=== PATIENT | female | born 1995 | race Caucasian/White ===

== ENCOUNTER 2023-07-29 15:50 | Outpatient (CLI) | payer OTHER, SELFPAY ==
[2023-07-29 18:49] LABS: Hematocrit 40.7 % (37.0-47.0); Hemoglobin 12.7 g/dL (12.0-15.0); Mean Corpuscular HGB Conc 31.2 g/dl (32-36); Mean Corpuscular Hemoglobin 28.4 pg (26-34); Mean Corpuscular Volume 91.1 fl (80-100); Mean Platelet Volume 10.2 fl (7.4-10.4); Platelet Count Result 410 k/mm3 (150-375); Red Blood Count 4.47 M/mm3 (4.2-5.4); Red Cell Distribution Width 12.1 % (11.5-14.5); White Blood Count 8.9 K/mm3 (4.5-10.0)
[2023-07-29 18:58] LABS: Alanine Aminotransferase 65 U/L (6-35); Albumin Level 4.6 g/dL (3.5-5.1); Alkaline Phosphatase 73 U/L (38-126); Anion Gap 7 mmol/L (8-16); Aspartate Amino Transferase 70 U/L (14-36); Bilirubin,Total 0.5 mg/dL (0.2-1.3); Blood Urea Nitrogen 13 mg/dL (7-17); Calcium 9.6 mg/dL (8.4-10.2); Carbon Dioxide 28 mmol/L (22-30); Chloride 106 mmol/L (98-107); Cholesterol 156 mg/dL (0-200); Estimated Glomerular Filt Rate > 60; Glucose 89 mg/dL (65-110); HDL Direct 27 mg/dL; Sodium 141 mmol/L (137-145); Triglycerides 393 mg/dL (<150)
[2023-07-29 19:09] LABS: LDL Cholesterol Direct 77 mg/dL
[2023-07-29 20:20] LABS: Hemoglobin A1C 5.4 % (<5.7)
== END 2023-07-29 15:51 | disposition home or self-care (01) ==
LOC: ANHBWCLAB 15:57
PROVIDERS: PCP Nurse Practitioner Adult Health; Visit Provider Nurse Practitioner Adult Health
DX: E66.9 Obesity, unspecified (principal); E03.9 Hypothyroidism, unspecified; Z13.9 Encounter for screening, unspecified
CPT/HCPCS: 36415; 80053; 80061; 83036; 84443; 85027

== ENCOUNTER 2023-09-09 15:39 | Outpatient (CLI) | payer OTHER, SELFPAY ==
[2023-09-09 19:31] LABS: Thyroid Stimulating Hormone 0.362 uIU/mL (0.465-4.680)
== END 2023-09-09 15:40 | disposition home or self-care (01) ==
LOC: ANHBWCLAB 15:41
PROVIDERS: PCP Nurse Practitioner Adult Health; Visit Provider Nurse Practitioner Adult Health
DX: E03.9 Hypothyroidism, unspecified (principal)
CPT/HCPCS: 36415; 84443

== ENCOUNTER 2023-11-04 08:31 | Outpatient (CLI) | payer OTHER, SELFPAY | END 2023-11-04 08:32 | disposition home or self-care (01) | LOC: ANHBWCLAB 08:32 | PROVIDERS: PCP Nurse Practitioner Adult Health; Visit Provider Nurse Practitioner Adult Health | DX: E03.9 Hypothyroidism, unspecified (principal) | CPT/HCPCS: 36415; 84443 ==

== ENCOUNTER 2024-04-06 10:06 | Outpatient (CLI) | payer BC, SELFPAY ==
[2024-04-06 19:28] LABS: Alanine Aminotransferase 42 U/L (6-35); Albumin Level 4.4 g/dL (3.5-5.1); Alkaline Phosphatase 72 U/L (38-126); Anion Gap 7 mmol/L (4-12); Aspartate Amino Transferase 79 U/L (14-36); Bilirubin,Total 0.6 mg/dL (0.2-1.3); Blood Urea Nitrogen 13 mg/dL (7-17); Calcium 9.1 mg/dL (8.4-10.2); Carbon Dioxide 27 mmol/L (22-30); Chloride 104 mmol/L (98-107); Cholesterol 161 mg/dL (0-200); Estimated Glomerular Filt Rate > 60; Glucose 89 mg/dL (65-110); HDL Direct 42 mg/dL; Potassium 4.4 mmol/L (3.4-5.0); Sodium 138 mmol/L (137-145); Triglycerides 94 mg/dL (<150)
[2024-04-06 19:39] LABS: LDL Cholesterol Direct 71 mg/dL
== END 2024-04-06 10:07 | disposition home or self-care (01) ==
LOC: ANHBWCLAB 10:08
PROVIDERS: PCP Nurse Practitioner Adult Health; Visit Provider Nurse Practitioner Adult Health
DX: E03.9 Hypothyroidism, unspecified (principal); E78.1 Pure hyperglyceridemia
CPT/HCPCS: 36415; 80053; 80061; 84443

== ENCOUNTER 2024-06-14 12:12 | Outpatient (CLI) | payer BC, SELFPAY ==
--- OUTSIDE RECORDS SUMMARY | 2024-06-14 12:51 | XMS_ITS | Clinical Summary ---
Author Organization [facility] Address [address] [place] [address] Care Team Providers Care Screed Operator Name Role Phone Shazia Rothman Primary Care Provider [phone] Allergies Active Allergy Reactions Criticality Noted Date Comments Citalopram Naltrexone-Bupropion Hives Medium 03/01/2023 Medications levothyroxine (SYNTHROID) 25 mcg tablet TAKE 1 TABLET BY MOUTH EVERY DAY FOR THYROID 3 Active ondansetron ODT (ZOFRAN-ODT) 4 mg disintegrating tablet DISSOLVE 1 TABLET ON THE TONGUE EVERY 8 HOURS NEEDED FOR NAUSEA 3 Active 28 mg iron- 800 mcg tablet Take 1 tablet by mouth daily 3 Active NIFEdipine (PROCARDIA XL/ADALAT CC) 60 mg 24 hr tablet Take 1 tablet (60 mg total) by mouth daily 30 tablet 1 3 Active docusate sodium (DOK) 100 mg tabletIndications:c onstipation Take 1 tablet (100 mg total) by mouth 2 (two) times a day 60 tablet 3 Active Active Problems Problem Noted Date Diagnosed Date 38 weeks gestation of 05/01/2023 37 weeks gestation of 04/30/2023 Lymphadenopathy 05/14/2016 Overview (08/23/2016): Lymphadenopathy Acute maxillary sinusitis 10/09/2015 Overview (08/23/2016): Acute recurrent maxillary sinusitis Medical History Medical History Date Comments Hx Other Medical 05/14/2016 Lymphadenopathy ; Comments: GDS 05/14/2016 - Thyroid disease Family History Medical History Relation Name Comments Cardiomyopathy Father Cardiomyopath y; Hypertension Other Family history of Hypertension; Relation Name Status Comments Father Other Social History Tobacco Use Types Packs/Day Years Used Date Smoking Tobacco: Never Smokeless Tobacco: Never Tobacco Cessation:Counseling Given: Not Answered Alcohol Use Standard Drinks/Week Comments No 0 (1 standard drink = 0.6 oz pur e alcohol) Social Connection and Isolat ion Panel [NHANES] Answer Date Recorded In a typical week, how many times do you talk on the phone with family, friends, or neighbors? More than three times a week 05/03/2023 How often do you get togethe r with friends or relatives? More than three times a week 05/03/2023 How often do you attend chur ch or restorationism services? Never 05/03/2023 Do you belong to any clubs o r organizations such as mu-ism groups, unions, fraternal or athletic groups, or school groups? No 05/03/2023 How often do you attend meet ings of the clubs or organizations you belong to? Never 05/03/2023 Are you , , di vorced, , never , or living with a partner? 05/03/2023 AUDIT-C Answer Date Recorded Q1: How often do you have a drink containing alcohol? Never 05/03/2023 Q2: How many drinks containi ng alcohol do you have on a typical day when you are drinking? Patient does not drink Q3: How often do you have si x or more drinks on one occasion? Never 05/03/2023 Overall Financial Resource Strain (CARDIA) Answe r Date Recorded How hard is it for you to pa y for the very basics like food, housing, medical care, and heating? Not hard at all 05/03/2023 PHQ-2 Answer Date Recorded PHQ-2 Total Score (If total score is 3 or more points, staff should administer the PHQ-9) 0 05/03/2023 [facility] - Occupational Stress Questionnaire Answer Date Recorded Do you feel stress - tense, restless, nervous, or anxious, or unable to sleep at night because your mind is troubled all the time - these days? Not at all 05/03/2023 Exercise Vital Sign Answer Date Recorde d On average, how many days pe r week do you engage in moderate to strenuous exercise (like a brisk walk)? 3 days 05/03/2023 On average, how many minutes do you engage in exercise at this level? 30 min 05/03/2023 Hunger Vital Sign Answer Date Recorded Within the past 12 months, y ou worried that your food would run out before you got the money to buy more. Never true 05/03/20 23 Within the past 12 months, t he food you bought just didn't last and you didn't have money to get more. Never true 05/03/2023 PRAPARE - Transportation Answer Date Re corded In the past 12 months, has l ack of transportation kept you from medical appointments or from getting medications? No 04/18 In the past 12 months, has l ack of transportation kept you from meetings, work, or from getting things needed for daily living? No 05/03/2023 Housing Stability Vital Sign Answer Christian e Recorded In the last 12 months, was t here a time when you were not able to pay the mortgage or rent on time? No 05/03/2023 In the last 12 months, how many places have you lived? 1 05/03/2023 In the last 12 months, was t here a time when you did not have a steady place to sleep or slept in a chcf (including now)? No 05/03/2023 Personal Safety Answer Date Recorded Have you ever been in or are you currently in a harmful physical or emotional relationship or is someone making you feel afraid or unsafe? Denies 05/03/2023 Comments No Sex and Gender Information Value Date Recorded Sex Assigned at Not on file Legal Sex Female 3:03 PM [employer] Gender Identity Not on file Sexual Orientation Not on file Obstetrics History Para Term AB IAB SAB Ectopic Multiple Livin g Live Births 1 1 1 0 1 1 Date Outcome GA Total Labor Labor/2nd/3rd Weight Sex Type Anes PTL Bibiana A1 A5 Name Clin 2022 Term 38w 0d 0h 01m 0h 01m 2.66 kg (5 lb 13.8 oz) F C-Sec tion Spinal N Livin g 8 9 Betty Bibi GonzalezRik Parks MD Complications:Other (Comment ) Delivery Location:This Facil ity ([facility] D PROCEDURE) Last Filed Vital Signs Vital Sign Reading Time Taken Comments Blood Pressure 133/86 05/07/2023 6:40 AM [employer]PER[employer] Pulse 95 05/07/2023 6:40 AM [employer] Temperature 35.9 ??C (96.6 ??F) 05/07/2023 6:40 AM CS T Respiratory Rate 17 05/07/2023 6:40 AM [employer] Oxygen Saturation 99% 05/07/2023 1:00 AM [employer]PER[employer]OR Inhaled Oxygen Concentration - - Weight 126.6 kg (279 lb) 05/03/2023 7:52 PM [employer]PER[employer] Height 160 cm (5' 3 ) 05/03/2023 7:52 PM [employer] Body Mass Index 49.42 05/03/2023 7:52 PM [employer] Plan of Treatment Health Maintenance Due Date Last Done Comments Cervical Cancer Screening 1996 Hepatitis C Screening 1996 DTaP/Tdap/Td Vaccine (6 - Tdap) 2007 12/02/2001, 12/02/2001, 04/20/1999, Additional history exists Regular Well Visit/Exam 18-64 2014 Covid-19 Vaccine ( season) 2024 09/25/2020, 08/18/2020 Influenza Vaccine (#1) 2024 05/16/2015 Depression Screening 05/01/2024 05/01/2023, 05/01/2023, 04/29/2023, Additional history exists Varicella Vaccines Completed 01/07/2007, 04/20/1999 HPV Vaccines Completed 09/09/2008, 12/23/2007 Pneumococcal vaccine <65 Aged Out No longer eligible based on patient's age to complete this topic Insurance [facility] H[facility]/PPO Address: [place] [address] [facility] H[facility]/PPO Address: [address] [facility] H[facility]/PPO Address: [place] [address] Advance Directives For more information, please contact: [phone] * Full Code (Latest Code Status on File) Date Activated Date Inactivated Comments 2023 9:41 AM 05/07/2023 4:23 PM * Full Code Date Activated Date Inactivated Comments 05/03/2023 3:53 PM 2023 9:41 AM Full CPR i n case of cardiopulmonary arrest * Full Code Date Activated Date Inactivated Comments 04/30/2023 6:34 AM 05/02/2023 1:17 AM Full CPR i n case of cardiopulmonary arrest Care Teams Screed Operator Relationship Specialty Start Date End Date Shazia Rothman PA [address] [place] [address] PCP - General Physician Human Factors Specialist 12/05/22
--- OUTSIDE RECORDS SUMMARY | 2024-06-14 12:51 | XMS_ITS | Data Portability ---
Author Organization [facility] Address [address] [place] [address] Care Team Providers Care Yard Inspector Name Role Phone LYSSA MEDRANO Primary Care Provider DIANE UNDERWOOD Owner Spa Director [phone] Assessment No assessment recorded. Plan of Treatment Reminders Order Date Submit Date Provider Last Modified By Organization Details Last Modified Time Details Appointments None record ed. Lab pregna ncy test, urine 2023 024 [email or web address] In-Office Order, Internal Use Only DO Not Attach Compendium DO Not Attach Compendium, Do Not Delete/merge, [id number] 4 15:26:59 Referral primar y care provid er referr al 2023 024 [email or web address] Not available 4 09:59:19 Procedures None record ed. Surgeries None record ed. Imaging None record ed. Medication Orders Nexpla non 68 mg subder mal implan t 2023 024 [email or web address] Not available 4 16:52:44 Loestr in Fe 06/07 (28-Da y) 1 mg-20 mcg (21)/7 5 mg (7) tablet 2023 024 [id number], [address], [place], [place], [id number], 4 19:34:03 Patient TargetsNo targets recorded. Patient Instructions Encounter Date Encounter Id Patient Instructions Last Modified By Organization Details Last Modified Time 06/16/2023 [id number] edinburgh depression scale* traci Not available 06/16/2023 16:15:30 07/30/2023 [id number] learning about high blood pressure traci Not available 07/30/2023 15:26:57 A healthy lifestyle: care instructions traci Not available 07/30/2023 15:26:57 10/29/2023 [id number] A healthy lifestyle: care instructions traci Not available 10/29/2023 19:33:57 Reason for Referral Primary Care Provider Referr al for Essential hypertension Referring Physician: Rik Garcia, SHAGGER, Encounter Date: 07/30/2023 Results Created Date Observation Date Name Description Value Unit Range Abnormal Flag Note LastModifiedBy Organization Detail LastModifiedTime 04/15/2004/16/2023 TSH+F REE T4 TSH 4.100 uIU/m L 0.450- 4.500 Not Available [facility] ([facility]) [address] [place], [address], 04/16/2023 11:13:13 04/15/20 23 04/16/2023 TSH+F REE T4 T4,free(dire ct) 0.72 NG/dL 0.82-1 .77 below low normal Not Available [facility] ([facility]) [address] [place], [address], 04/16/2023 11:13:13 04/15/2004/15/2023 urina lysis , dipst ick Leukocytes Negati ve Not Available In-Office Order Internal Use Only DO Not Attach Compendium DO Not Attach Compendium, Do Not Delete/merge, [id number] 04/15/2023 16:45:04 04/15/20 23 04/15/2023 urina lysis , dipst ick Nitrite negati ve Not Available In-Office Order Internal Use Only DO Not Attach Compendium DO Not Attach Compendium, Do Not Delete/merge, [id number] 04/15/2023 16:45:04 04/15/20 23 04/15/2023 urina lysis , dipst ick Urobilinogen .2 Not Available In-Of fice Order Internal Use Only DO Not Attach Compendium DO Not Attach Compendium, Do Not Delete/merge, 04/15/2023 16:45:04 04/15/20 23 04/15/2023 urina lysis , dipst ick Protein Negati ve Not Available In-Office Order Internal Use Only DO Not Attach Compendium DO Not Attach Compendium, Do Not Delete/merge, 04/15/2023 16:45:04 04/15/20 23 04/15/2023 urina lysis , dipst ick pH 7.0 Not Available In-Office Order Internal Use Only DO Not Attach Compendium DO Not Attach Compendium, Do Not Delete/merge, 04/15/2023 16:45:04 04/15/20 23 04/15/2023 urina lysis , dipst ick Blood Negati ve Not Available In-Office Order Internal Use Only DO Not Attach Compendium DO Not Attach Compendium, Do Not Delete/merge, 04/15/2023 16:45:04 04/15/20 23 04/15/2023 urina lysis , dipst ick Specific Marion 1.010 Not Available In-Off ice Order Internal Use Only DO Not Attach Compendium DO Not Attach Compendium, Do Not Delete/merge, 04/15/2023 16:45:04 04/15/20 23 04/15/2023 urina lysis , dipst ick Ketone Negati ve Not Available In-Office Order Internal Use Only DO Not Attach Compendium DO Not Attach Compendium, Do Not Delete/merge, 04/15/2023 16:45:04 04/15/20 23 04/15/2023 urina lysis , dipst ick Bilirubin Negati ve Not Available In-Office Order Internal Use Only DO Not Attach Compendium DO Not Attach Compendium, Do Not Delete/merge, 04/15/2023 16:45:04 04/15/20 23 04/15/2023 urina lysis , dipst ick Glucose Negati ve Not Available In-Office Order Internal Use Only DO Not Attach Compendium DO Not Attach Compendium, Do Not Delete/merge, 04/15/2023 16:45:04 04/15/20 23 04/15/2023 urina lysis , dipst ick Appearance Clear Not Available In-Offi ce Order Internal Use Only DO Not Attach Compendium DO Not Attach Compendium, Do Not Delete/merge, [id number] 04/15/2023 16:45:04 04/15/20 23 04/15/2023 urina lysis , dipst ick Color Pale Yellow Not Available In-Office Order Internal Use Only DO Not Attach Compendium DO Not Attach Compendium, Do Not Delete/merge, [id number] 04/15/2023 16:45:04 04/22/20 23 04/23/2023 RPR, RFX QN RPR/C ONFIR M TP RPR Non Reacti ve nonrea ctive Not Available [facility] ([facility]) [address] [place], [address], 04/23/2023 07:13:13 04/22/2004/23/2023 HIV AB/P2 4 AG WITH REFLE X HIV Ab/P24 Ag screen Non Reacti ve nonrea ctive HIV Negat [place] HIV-1 /HIV- 2 antib odies and HIV-1 p24 antig en were NOT detec omid. There is no labor atory evide nce of HIV infec tion. Not Available [facility] ([facility]) [address] [place], [address], 04/23/2023 07:13:14 04/22/20 23 04/24/2023 CT, NG, TRICH VAG BY HUBER chlamydia by HUBER Negati ve negati ve Not Available [facility] ([facility]) [address] [place], [address], 04/24/2023 16:13:04 04/22/20 23 04/24/2023 CT, NG, TRICH VAG BY HUBER gonococcus by HUBER Negati ve negati ve Not Available [facility] ([facility]) [address] [place], [address], 04/24/2023 16:13:04 04/22/20 23 04/24/2023 CT, NG, TRICH VAG BY HUBER trich vag by HUBER Negati ve negati ve Not Available [facility] ([facility]) [address] [facility], [place], [address], 04/24/2023 16:13:04 04/22/20 23 04/24/2023 STREP GP B HUBER strep gp B HUBER Negati ve negati ve [facility] n[facility] ([facility]) and Ameri can Congr ess of Obste trici ans and Gynec ologi sts ([facility] ) guide lines for preve ntion of perin atal group B strep tococ yanet (GBS) disea se speci fy co-co llect ion of a vagin al and recta l swab speci men to maxim ize sensi tivit y of GBS detec tion. Per the [facility] and [facility], swabb ing both the lower vagin a and rectu m subst antia lly incre ases the yield of detec tion nicole red with sampl ing the vagin a alone . Penic illin G, ampic illin , or cefaz adriana are indic ated for intra partu m proph ylaxi s of perin atal GBS colon izati on. Refle x susce ptibi lity testi ng shoul d be perfo rmed prior to use of clind amyci n only on GBS isola tracey from penic illin -azalea rgic women who are consi dered a high risk for anaph ylaxi s. Treat ment with vanco mycin witho ut addit ional testi ng is warra nted if resis tance to clind amyci n is noted . Not Available [facility] ([facility]) [address] [facility], [place], [address], 04/24/2023 16:13:05 04/22/20 23 04/22/2023 urina lysis , dipst ick Leukocytes Negati ve Not Available In-Office Order Internal Use Only DO Not Attach Compendium DO Not Attach Compendium, Do Not Delete/merge, [id number] 04/22/2023 11:37:03 12/05/20 23 04/22/2023 urina lysis , dipst ick Nitrite negati ve Not Available In-Office Order Internal Use Only DO Not Attach Compendium DO Not Attach Compendium, Do Not Delete/merge, [id number] 04/22/2023 11:37:03 04/22/20 23 04/22/2023 urina lysis , dipst ick Urobilinogen .2 Not Available In-Of fice Order Internal Use Only DO Not Attach Compendium DO Not Attach Compendium, Do Not Delete/merge, [id number] 04/22/2023 11:37:03 04/22/20 23 04/22/2023 urina lysis , dipst ick Protein 30 Not Available In-Office Order Internal Use Only DO Not Attach Compendium DO Not Attach Compendium, Do Not Delete/merge, [id number] 04/22/2023 11:37:03 04/22/20 23 04/22/2023 urina lysis , dipst ick pH 7.0 Not Available In-Office Order Internal Use Only DO Not Attach Compendium DO Not Attach Compendium, Do Not Delete/merge, [id number] 04/22/2023 11:37:03 04/22/20 23 04/22/2023 urina lysis , dipst ick Blood Negati ve Not Available In-Office Order Internal Use Only DO Not Attach Compendium DO Not Attach Compendium, Do Not Delete/merge, [id number] 04/22/2023 11:37:03 04/22/20 23 04/22/2023 urina lysis , dipst ick Specific Marion 1.015 Not Available In-Off ice Order Internal Use Only DO Not Attach Compendium DO Not Attach Compendium, Do Not Delete/merge, [id number] 04/22/2023 11:37:03 04/22/20 23 04/22/2023 urina lysis , dipst ick Ketone Negati ve Not Available In-Office Order Internal Use Only DO Not Attach Compendium DO Not Attach Compendium, Do Not Delete/merge, [id number] 04/22/2023 11:37:03 04/22/20 23 04/22/2023 urina lysis , dipst ick Bilirubin Negati ve Not Available In-Office Order Internal Use Only DO Not Attach Compendium DO Not Attach Compendium, Do Not Delete/merge, [id number] 04/22/2023 11:37:03 04/22/20 23 04/22/2023 urina lysis , dipst ick Glucose Negati ve Not Available In-Office Order Internal Use Only DO Not Attach Compendium DO Not Attach Compendium, Do Not Delete/merge, [id number] 04/22/2023 11:37:03 04/29/20 23 04/29/2023 urina lysis , dipst ick Leukocytes Trace Not Available In-Offi ce Order Internal Use Only DO Not Attach Compendium DO Not Attach Compendium, Do Not Delete/merge, [id number] 04/29/2023 15:00:17 04/29/20 23 04/29/2023 urina lysis , dipst ick Nitrite negati ve Not Available In-Office Order Internal Use Only DO Not Attach Compendium DO Not Attach Compendium, Do Not Delete/merge, 04/29/2023 15:00:17 04/29/20 23 04/29/2023 urina lysis , dipst ick Urobilinogen .2 Not Available In-Of fice Order Internal Use Only DO Not Attach Compendium DO Not Attach Compendium, Do Not Delete/merge, 04/29/2023 15:00:17 04/29/20 23 04/29/2023 urina lysis , dipst ick Protein Negati ve Not Available In-Office Order Internal Use Only DO Not Attach Compendium DO Not Attach Compendium, Do Not Delete/merge, [id number] 04/29/2023 15:00:17 04/29/20 23 04/29/2023 urina lysis , dipst ick pH 7.0 Not Available In-Office Order Internal Use Only DO Not Attach Compendium DO Not Attach Compendium, Do Not Delete/merge, [id number] 04/29/2023 15:00:17 04/29/20 23 04/29/2023 urina lysis , dipst ick Blood Negati ve Not Available In-Office Order Internal Use Only DO Not Attach Compendium DO Not Attach Compendium, Do Not Delete/merge, [id number] 04/29/2023 15:00:17 04/29/20 23 04/29/2023 urina lysis , dipst ick Specific Marion 1.015 Not Available In-Off ice Order Internal Use Only DO Not Attach Compendium DO Not Attach Compendium, Do Not Delete/merge, [id number] 04/29/2023 15:00:17 04/29/20 23 04/29/2023 urina lysis , dipst ick Ketone Negati ve Not Available In-Office Order Internal Use Only DO Not Attach Compendium DO Not Attach Compendium, Do Not Delete/merge, [id number] 04/29/2023 15:00:17 04/29/20 23 04/29/2023 urina lysis , dipst ick Bilirubin Negati ve Not Available In-Office Order Internal Use Only DO Not Attach Compendium DO Not Attach Compendium, Do Not Delete/merge, [id number] 04/29/2023 15:00:17 04/29/20 23 04/29/2023 urina lysis , dipst ick Glucose Negati ve Not Available In-Office Order Internal Use Only DO Not Attach Compendium DO Not Attach Compendium, Do Not Delete/merge, [id number] 04/29/2023 15:00:17 04/29/20 23 04/29/2023 urina lysis , dipst ick Appearance Clear Not Available In-Offi ce Order Internal Use Only DO Not Attach Compendium DO Not Attach Compendium, Do Not Delete/merge, [id number] 04/29/2023 15:00:17 04/29/20 23 04/29/2023 urina lysis , dipst ick Color Pale Yellow Not Available In-Office Order Internal Use Only DO Not Attach Compendium DO Not Attach Compendium, Do Not Delete/merge, [id number] 04/29/2023 15:00:17 06/16/19 24 06/16/2023 edinb urgh postn atal depre ssion scale * Score 4 Not Available In-Office Order Internal Use Only DO Not Attach Compendium DO Not Attach Compendium, Do Not Delete/merge, [id number] 06/16/2023 16:15:19 07/30/19 24 07/30/2023 pregn eleanor test, urine HCG negati ve Not Available In-Office Order Internal Use Only DO Not Attach Compendium DO Not Attach Compendium, Do Not Delete/merge, [id number] 07/30/2023 14:38:38 Result Notes None recorded. 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 SHERYL [place], [place] - [facility] 4 14:31:26 Pregnanc y 58638504 Completed 202206/16/2023 SHERYL [place] - [facility] 4 14:31:30 Hypothyr oidism 50630919 Completed 2017 new [place] SHERYL [place] [facility] 4 14:31:26 Obesity 748140965 Completed 2016 SHERYL [place] - [facility] 4 14:31:26 Administ ration of diphther ia, pertussi s, and tetanus vaccine Completed SHERYL [place] [facility] 4 14:31:26 Mixed anxiety and depressi ve disorder 293546873 Active feeling fine without med Brooke Cary MD Attn: Nevaeh rose,[address] [place], [address], [place] - [facility] 8 12:35:22 Vomiting 850945146 Completed 01/27/2017 Brooke Cary MD Attn: Nevaeh rose,[address] [place], [address], [place] - [facility] 7 16:27:41 Dysuria 08673997 Completed 03/29/2019 LEVI AMBRIZ Attn: Nevaeh rose,[address] [place], [address], [place] - [facility] 9 10:15:10 Amenorrh ea 40085947 Completed 03/29/2019 LEVI AMBRIZ Attn: Nevaeh rose,[address] [place], [address], [place] - [facility] 9 10:14:14 Upper respirat ory infectio n 94009984 Completed 01/27/2017 Brooke Cary MD Attn: Nevaeh rose,[address] [place], [address], [facility] - [facility] 7 16:27:44 Lymphade nitis 47798886 Completed 04/08/2016 Brooke Cary MD Attn: Nevaeh rose,[address] [facility], [place], [address], [facility] - [facility] 6 12:17:53 Liver function tests outside referenc e range 630413837 Active fatty liver on CT abdomen on 02/02 Brooke Cary MD Attn: Nevaeh rose,[address] [facility], [place], [address], [facility] - [facility] 7 14:06:49 Candidal vulvovag initis 37356428 Completed 03/29/2019 LEVI AMBRIZ Attn: Nevaeh rose,[address] [facility], [place], [address], [facility] - [facility] 9 10:15:07 Lymphade nopathy 45410473 Active 2015 CT neck showed 3 significa ntly enlarged nodes -seeing hematolog ist/ Dr.Woodso narda Cary MD Attn: Nevaeh rose,[address] [facility], [place], [address], [facility] - [facility] 7 15:28:23 Umbilica l discharg e 53168691 Completed 201601/27/2017 Brooke Cary MD Attn: Nevaeh rose,[address] [facility], [place], [address], [facility] - [facility] 7 16:27:51 Obesity 886168326 Active 2016 Fiona laboy MA null, [place] - [facility] 4 14:31:26 Problem Notes None recorded. Procedures Surgical History Date Name Laterality Status Provider Name and Address Organization Details Recorded Time 4 Control Implant Removal completed Rik Garcia MD Attn: Accounting,[address], [place], [address], [place] [facility] 10/29/2023 19:31:27 4 Control Implant Insertion completed Rik Garcia MD Attn: Accounting,[address], [place], [address], [place] [facility] 07/30/2023 15:24:09 3 Suture/Staple removal completed Deana Santos LPN [place] - [facility] 05/13/2023 15:06:47 3 Caesarean Section completed Fiona Vizcarra [place] [facility] 06/16/2023 14:32:31 3 Date of Last Pap Smear completed Dorina [place]izano [place] [facility] 10/22/2022 14:06:36 6 Depo Injection completed Adrianna Trejo [place] - [facility] 09/25/19 16 10:36:09 Imaging Results None recorded. Procedure Notes None recorded. Medical Equipment None Reported. Allergies Allergen ID Allergen Name Allergen Category Reaction Reaction Severity Criticality Documentation Date Start Date Code Code System Note Provider Name and Address Organization Details Recorded Time [id number] Contrave medicatio n hives severe Not available 12/01/2019 51039 69 RxNorm Not Available Not Available Not Available Medications Name Sig Start Date Stop Date Status Note LastModified by Organization Details LastModified Time fluoxetin e 40 mg capsule 02/01 completed Not Available Not Available Not Available amoxicill in 500 mg capsule Take 1 capsule twice a day by oral route as directed for 10 days. 01/07 completed Not Available Not Available Not Available Miralax 17 gram/dose oral powder Dissolve 1 capful in 4-8 oz of liquid PO daily as needed in no BM in 3-4 days 10/04 completed Not Available Not Available Not Available Vitamin B-6 25 mg tablet TAKE 1 TABLET BY MOUTH THREE TIMES DAILY NEEDED 10/28 completed Not Available Not Available Not Available cetirizin e 10 mg tablet Take 1 tablet every day by oral route in the morning for 10 days. 01/07 completed Not Available Not Available Not Available fluconazo le 150 mg tablet Take 1 tablet by oral route. 03/07 completed Not Available Not Available Not Available benzonata te 200 mg capsule Take 1 capsule 3 times a day by oral route as directed for 10 days. 01/07 completed Not Available Not Available Not Available meloxicam 15 mg tablet Take 1 tablet every day by oral route as needed. 06/22 completed Not Available Not Available Not Available Medrol (Vinod) 4 mg tablets in a dose pack Take 1 dose pk by oral route. 01/07 completed Not Available Not Available Not Available prednison e 20 mg tablet TK 2 TS PO D FOR 5 DAYS 04/18 completed Not Available Not Available Not Available phentermi ne 37.5 mg tablet TAKE 1 TABLET BY MOUTH DAILY 30 MINUTES BEFORE OR 1 TO 2 HOURS AFTER BREAKFAS T active Not Available Not Available No t Available ciproflox acin 250 mg tablet Take 1 tablet every 12 hours by oral route for 7 days. active Not Available Not Available No t Available tretinoin 0.05 % topical cream APPLY TO THE AFFECTED AREA(S) BY TOPICAL ROUTE ONCE DAILY AT BEDTIME 04/18 completed Not Available Not Available Not Available sulfameth oxazole 800 mg-trimet hoprim 160 mg tablet Take 1 tablet every 12 hours by oral route for 10 days. 01/27 completed Not Available Not Available Not Available amoxicill in 500 mg tablet Take 1 tablet 3 times a day by oral route for 7 days. 03/07 completed Not Available Not Available Not Available levothyro xine 25 mcg tablet active Not Available Not Available Not Available amoxicill in 875 mg tablet Take 1 tablet every 12 hours by oral route as directed for 5 days. 08/19 completed Not Available Not Available Not Available Celexa 20 mg tablet Take 1 tablet every day by oral route. 2014 active Not Available Not Available Not Avai lable benzonata te 100 mg capsule Take 1 capsule 3 times a day by oral route as needed for cough. active Not Available Not Available No t Available levothyro xine 50 mcg tablet TAKE 1 TABLET BY MOUTH DAILY 10/28 completed Not Available Not Available Not Available paroxetin e 20 mg tablet Take 1 tablet every day by oral route as directed for 30 days. 10/04 completed Not Available Not Available Not Available ranitidin e 150 mg tablet Take 1 tablet twice a day by oral route. 10/20 completed Not Available Not Available Not Available docusate sodium 100 mg capsule TAKE 1 CAPSULE BY MOUTH TWICE DAILY 06/16 completed Not Available Not Available Not Available mupirocin 2 % topical ointment APPLY A SMALL AMOUNT TO THE AFFECTED AREA BY TOPICAL ROUTE 3 TIMES PER DAY 01/27 completed Not Available Not Available Not Available ibuprofen 600 mg tablet active Not Available Not Available Not Available nifedipin e ER 60 mg tablet,ex tended release 06/16 completed Not Available Not Available Not Available ondansetr on 4 mg disintegr ating tablet DISSOLVE 1 TABLET ON THE TONGUE EVERY 8 HOURS NEEDED FOR NAUSEA 06/16 completed Not Available Not Available Not Available fluoxetin e 20 mg capsule Take 1 capsule every day by oral route. 2015 active Not Available Not Available Not Avai lable fluticaso ne propionat e 50 mcg/actua tion nasal spray,kody pension [place] 1 spray every day by intranas al route in the morning for 10 days. 01/07 completed Not Available Not Available Not Available Unisom (doxylami ne) 25 mg tablet Take 1 tablet by oral route at bedtime. 02/17 completed Not Available Not Available Not Available medroxypr ogesteron e 150 mg/mL intramusc ular suspensio n Inject 1 mL every 3 months by intramus cular route. 2015 active Not Available Not Available Not Avai lable dicyclomi ne 10 mg capsule Take by oral route for 2 days. 10/20 completed Not Available Not Available Not Available loratadin e 10 mg tablet TAKE 1 TABLET BY MOUTH EVERY DAY IN THE MORNING 09/30 completed Not Available Not Available Not Available amoxicill in 875 mg-potass ium clavulana te 125 mg tablet 02/01 completed Not Available Not Available Not Available Strattera 40 mg capsule Take 1 capsule twice a day by oral route as directed for 30 days. 01/07 completed Start 1 tablet in the morning x 1 week, then increase to 1 tablet twice daily Not Available Not Available Not Available Microgest in 06/07 (21) 1 mg-20 mcg tablet Take 1 tablet every day by oral route. 10/17 completed Not Available Not Available Not Available Multiple Vitamin, Womens tablet Take 1 tablet every day by oral route as directed for 100 days. 10/04 completed Not Available Not Available Not Available nitrofura ntoin monohydra te/macroc rystals 100 mg capsule TAKE 1 CAPSULE BY MOUTH EVERY 12 HOURS FOR 7 DAYS 10/28 completed Not Available Not Available Not Available 02/17 completed Not Available Not Available Not Available Metamucil Fiber Singles 3.4 gram oral powder packet Take 1 packet every day by oral route as directed for 30 days. 10/04 completed Not Available Not Available Not Available Nexplanon 68 mg subdermal implant Inject 1 implant by subcutan eous route. 2023 active Not Available Not Available Not Avai lable 28 mg iron-800 mcg tablet TAKE 1 TABLET BY MOUTH EVERY DAY 10/28 completed Not Available Not Available Not Available Contrave 8 mg-90 mg tablet,ex tended release Take 2 tablets twice a day by oral route as directed for 30 days. 11/30 completed Not Available Not Available Not Available Bella 0.25 mg-35 mcg tablet TAKE 1 TABLET BY MOUTH EVERY DAY active Not Available Not Available No t Available Aurovela Fe 1-20 (28) 1 mg-20 mcg (21)/75 mg (7) tablet Take 1 tablet every day by oral route. active Not Available Not Available No t Available COVID-19 test specimen collectio n USE 1 KIT TODAY DIRECTED 01/07 completed Not Available Not Available Not Available Vitals Date Recorded Body height Provider Name an d Address Organization Details Last Updated DateTime 05/13/2023 157.48 cm Deana Santos LPN [place] - [facility] 05/13/2023 15:05:18 Date Recorded Body height Provider Name an d Address Organization Details Last Updated DateTime 05/22/2023 157.48 cm Deana [place] LPN [place] [facility] 05/22/2023 14:21:35 Date Recorded Body height Provider Name an d Address Organization Details Last Updated DateTime 06/16/2023 157.48 cm Fiona ThompsonSHERYL denise [place] - [facility] 06/16/2023 14:29:47 Date Recorded Body mass index (BMI) Body weight Provider Name and Address Organization Details Last Updated DateTime 06/16/2023 46.3 kg/m2 658265.154174 g Fiona SHERYL Vizcarra [place] [facility] 06/16/2023 14:31:26 Date Recorded Heart rate Provider Name an d Address Organization Details Last Updated DateTime 06/16/2023 80 /min Fiona Vizcarra [place] [facility] 05/20 14:30:16 Date Recorded Body height Provider Name an d Address Organization Details Last Updated DateTime 07/30/2023 157.48 cm Essence Martinez [place] [facility] 07/30/2023 14:36:01 Date Recorded Body mass index (BMI) Body weight Provider Name and Address Organization Details Last Updated DateTime 07/30/2023 46.8 kg/m2 476355.93 g Essence SHERYL Martinez [place] [facility] 07/30/2023 14:36:35 Date Recorded Body height Provider Name an d Address Organization Details Last Updated DateTime 10/29/2023 157.48 cm Essence SHERYL [place] [facility] 10/29/2023 14:34:01 Date Recorded Body mass index (BMI) Body weight Provider Name and Address Organization Details Last Updated DateTime 10/29/2023 41.9 kg/m2 319875.08 g Essence SHERYL Martinez [place] [facility] 10/29/2023 14:51:53 Date Recorded Systolic blood pressure Diastolic blood pressure Provider Name and Address Organization Details Last Updated DateTime 05/13/2023 134 mm[Hg] 100 mm[Hg] Deana Santos LPN [place] [facility] 05/13/2023 15:05:40 Date Recorded Systolic blood pressure Diastolic blood pressure Provider Name and Address Organization Details Last Updated DateTime 05/22/2023 140 mm[Hg] 82 mm[Hg] Deana Santos LPN [place] - [facility] 05/22/2023 14:21:49 Date Recorded Systolic blood pressure Diastolic blood pressure Provider Name and Address Organization Details Last Updated DateTime 06/16/2023 117 mm[Hg] 83 mm[Hg] Fiona Vizcarra MA [facility] 06/16/2023 14:30:09 Date Recorded Systolic blood pressure Diastolic blood pressure Provider Name and Address Organization Details Last Updated DateTime 07/30/2023 158 mm[Hg] 88 mm[Hg] Essence Martinez MA [facility] 07/30/2023 14:36:55 Date Recorded Systolic blood pressure Diastolic blood pressure Provider Name and Address Organization Details Last Updated DateTime 10/29/2023 125 mm[Hg] 93 mm[Hg] Essence Martinez MA [facility] 10/29/2023 14:52:04 Social History Question Answer Notes LastModified by Organization Details LastModified Time Tobacco Smoking Status [facility] 04/28/2015 16:22:22 Do You Have An Advance Directive? No Information not available 10/29/2023 What Is Your Level Of Alcohol Consumption? None Information not available 06/13/2022 Is Blood Transfusion Acceptable In An Emergency? Yes Information not available 04/28/2015 What Is Your Level Of Caffeine Consumption? Moderate Information not available 04/28/2015 How Much Tobacco Do You Chew? None Information not available 04/28/2015 In The 14 Days Before Symptom Onset, Have You Had Close Contact With A Laboratory-confi rmed COVID-19 While That Case Was Ill? No Information not available 10/04/2020 In The 14 Days Before Symptom Onset, Have You Had Close Contact With A Person Who Is Under Investigation For COVID-19 While That Person Was Ill? No Information not available 10/04/2020 Have You Been To An Area Known To Be High Risk For COVID-19? No Information not available 10/04/2020 Are You Currently Employed? Yes Information not available 04/28/2015 What Type Of Diet Are You Following? REGULAR Information not available 04/28/2015 Which Illicit Or Recreational Drugs Have You Used? No Information not available 04/28/2015 Do You Or Have You Ever Used E-cigarettes Or Vape? Never Used Electronic Cigarettes Information not available 12/01/2019 Education 12 Information not available 04/28/2015 What Is The Highest Grade Or Level Of School You Have Completed Or The Highest Degree You Have Received? 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 No Information not available 10/29/2023 Live Alone Or With Others? With Others Information not available 04/28/2015 Marital Status Single Informatio n not available 01/27/2017 What Was The Date Of Your Most Recent Tobacco Screening? 10/29/2023 Information not available 10/29/2023 How Many Children Do You Have? 0 Information not available 04/28/2015 Performs Monthly Self-breast Exam? Yes Information not available 11/03/2017 Do You Have Any Pets? No Information not available 10/29/2023 Do You Use Protection During Sex? Usually Information not available 11/03/2017 What Is Your Relationship Status? Information not available 09/30/2022 Do You Use Your Seat Belt Or Car Seat Routinely? Yes Information not available 10/29/2023 Seat Belts Used Routinely Yes Information not available 04/28/2015 Are You Sexually Active? Yes Information not available 04/28/2015 Do You Have Smoke And Carbon Monoxide Detectors In Your Home? Yes Information not available 09/30/2022 Are You Passively Exposed To Smoke? No Information not available 09/30/2022 Do You Or Have You Ever Used Smokeless Tobacco? Never Used Smokeless Tobacco Information not available 12/01/2019 How Much Tobacco Do You Smoke? No Information not available 12/01/2019 General Stress Level Low Information not available 09/25/2015 Do You Feel Stressed (tense, Restless, Nervous, Or Anxious, Or Unable To Sleep At Night)? [id number] Information not available 10/29/2023 Do You Use Any Illicit Or Recreational Drugs? Yes 10/22/22 Pt States Stopped Marijuana C Positive Test, Cb-rma Information not available 10/22/2022 Do You Use Sunscreen Routinely? Yes Information not available 04/28/2015 Has Tobacco Cessation Counseling Been Provided? No Information not available 01/07/2022 On What Date Was Tobacco Cessation Counseling Provided? 10/29/2023 Information not available 10/29/2023 Have You Used IV Drugs? No Information not available 10/29/2023 Do You Or Have You Ever Used Any Other Forms Of Tobacco Or Nicotine? No Information not available 10/22/2022 Sex: Female Functional Status Question Answer Note LastModified by Organizat ion Details LastModified Time What is your exercise level? Occasional Information not available 04/28/2015 Mental Status None recorded. Family History Relationship Description Onset Age of this Age Resolved Age Notes LastModified by Organization Details LastModified Time Maternal Grandmother Hypertensive disorder [email or web address] Not available 2015 14:47:45 Father No current problems or disability [email or web address] Not available 06/22 15:39:12 Mother No current problems or disability [email or web address] Not available 06/22 15:39:12 Medical History Condition Response Coronary Artery Disease N Other N Atrial Fibrillation N High Blood Pressure N Breast Cancer N Lung Disease N Depression N COPD N Blood Clots N Breast Problem N Anesthesia Complications N Headaches/Migraines N Anxiety Disorder N Muscle, Joint, or Bone Problems N Infertility N Polyps N Acid Reflux (GERD) N Cancer N Stroke N ADHD N Endometriosis N High Cholesterol N Liver Disease N Schizophrenia N Headaches N Thyroid Problems N Kidney or Bladder Problems N GI Problems N Acne Y Eating Disorder N Skin Problems N Anemia N Heart Attack (ND) N Diabetes N Ovarian Cancer N Blood Transfusions N Seizures/Epilepsy N Abuse/Domestic Violence N Asthma Y Allergies N Substance Abuse N Hepatitis N Heart Disease N Pre-Eclampsia N Heart Failure N Osteoporosis N Gynecological History Statement/Question Response Flow Moderate Date of LMP 08/12/2022 On BCP's at Conception? N STIs/STDs N HPV Vaccine Y Duration of Flow (days) 6 Age at Menarche 14 Age at First Child 27 Sexually Active? Y Menses Monthly No Date of Last Pap Smear 10/22/2022 Sexual Problems? N LMP Definite Desired Control Method Unknown Obstetrics History GPAL:G 1 P 1 0 0 1 Type Value Multiple Births 0 Full Term 1 Induced 0 Spontaneous 0 Premature 0 Living 1 Ectopics 0 Total 1 Immunizations Vaccine Type Date Status Note Provider Nam e and Address Organization Details Recorded Time DTP 7 shaista Hahn [place] null, [place] [facility] 10/04/2020 11:35:38 DTP 7 shaista H[place] [facility] 10/04/2020 11:37:07 DTP 7 shaista H[place] [facility] 10/04/2020 11:37:31 DTP 7 shaista H[place] [facility] 10/04/2020 11:37:45 DTP 2 shaista H[place] [facility] 10/04/2020 11:38:08 Hib, unspecified formulation 7 shaista H[place] [facility] 10/04/2020 11:38:31 Hib, unspecified formulation 7 shaista H[place] [facility] 10/04/2020 11:38:40 Hib, unspecified formulation 7 shaista H[place] [facility] 10/04/2020 11:38:58 Hib, unspecified formulation 9 completed Madeline Hahn [place] [facility] 10/04/2020 11:39:08 Hep A, unspecified formulation 6 shaista H[place] [facility] 10/04/2020 11:39:42 Hep A, unspecified formulation 7 shaista H[place] [facility] 10/04/2020 11:40:01 HPV, unspecified formulation 8 completed Madeline H[place] [facility] 10/04/2020 11:40:37 HPV, unspecified formulation 9 shaista H[place] [facility] 10/04/2020 11:40:52 MMR 8 completed Madeline H[place] [facility] 10/04/2020 11:41:34 MMR 2 completed Madeline H[place] [facility] 10/04/2020 11:41:46 meningococcal ACWY, unspecified formulation 8 completed Madeline H[place] [facility] 10/04/2020 11:42:08 polio, unspecified formulation 7 completed Madeline H[place] [facility] 10/04/2020 11:42:34 polio, unspecified formulation 7 completed Madeline [place] [facility] 10/04/2020 11:42:43 polio, unspecified formulation 7 completed Madeline [place] [facility] 10/04/2020 11:42:53 polio, unspecified formulation 2 completed Madeline [place] [facility] 10/04/2020 11:43:07 varicella 9 completed Madeline [place] [facility] 10/04/2020 11:43:29 varicella 7 completed Madeline [place] [facility] 10/04/2020 11:43:38 SARS-COV-2 (COVID-19) vaccine, UNSPECIFIED 1 completed Madeline [place] [facility] 10/04/2020 11:44:03 SARS-COV-2 (COVID-19) vaccine, UNSPECIFIED 1 completed Madeline [place] [facility] 10/04/2020 11:44:10 Tdap 3 completed Rik Garcia MD Attn: Accounting[address] [place], [address], [place] [facility] 02/17/2023 21:06:34 Influenza, split virus, quadrivalent, preservative 5 completed Not Available [facility] 06/05/2019 02:39:16 Past Encounters Encounter ID Performer Location Encounter Start Date Encounter Closed Date Diagnosis/Indication Diagnosis SNOMED-CT Code Diagnosis ICD10 Code Diagnosis Note [id number] Arabella Joey Resendez (SHAGGER) [address] [place] [address] 04/28/2015 15:53:24 04/28/2015 17:26:24 Venereal disease screening 721341514 Z11.3 RTO 2 weeks for results. [facility] 732268109 Z30.9 Although the patient thinks she wants the Nexplanon, she has h/o having the Nexplanon removed for emotional lability in August of 2013. She could not remember to take the pill every day. Option of the Depo shot discussed. Pt. does not want to gain weight. Option of Mirena IUD or Copper IUD discussed. Pt. will research them and return. Handouts given. [id number] Arabella Cook Mal (SHAGGER) [address] [place] [address] 05/05/2015 15:38:30 05/05/2015 17:28:16 Venereal disease screening 073563478 Z11.3 STD panel was completely negative. Individual results d/w pt. [facility] 668343236 Z30.9 Pt. has decided to just use condoms for now. [id number] [facility] [address] [place] [address] 05/15/2015 14:14:54 05/15/2015 15:05:33 Adult health examination 798572018 Z00.01 Mixed anxi ety and depressive disorder 050786243 F41.8 with inattentio n Try Celexa pt is trying to go to [place] for counsellin g Administra tion of influenza vaccine 88967157 Z23 [id number] [facility] [address] [place] [address] 07/17/2015 14:24:28 07/17/2015 17:27:16 Mixed anxiety and depressive disorder 848587460 F34.1 Pt did not tolerate Celexa Try Prozac pt is trying to go to [facility] for counsellin g-did not see one yet Vomiting 667752055 R11.1 0 [id number] MD Jessica Gagehalto (Adult Med) [address] [place] [address] 08/24/2015 14:19:41 08/24/2015 15:35:08 Mixed anxiety and depressive disorder 367132016 F34.1 Pt did not tolerate Celexa Tolerating Prozac -increase dose to 40 mg daily Pt to see counsellor [id number] MD Jessica Gagehalto (Adult Med) [address] [facility] [place] [address] 09/01/2015 14:55:00 09/05/2015 11:46:22 Dysuria 34273627 R30.0 preg test -neg [id number] Arabella Resendez (SHAGGER) [address] [place] [address] 09/11/2015 14:58:39 09/11/2015 15:57:40 Contraception care management 453454716 Z30.9 Benefits, risks, and alternativ es to Depo Provera shot d/w pt. Pt. expressed understand ing. All pt. questions answered. UPT was negative today. Rx Depo sent. RTO 2 weeks with medication for repeat UPT and Depo shot. [id number] Arabella Resendez (SHAGGER) [address] [place] [address] 09/25/2015 09:35:26 09/25/2015 10:26:42 Family planning surveillance 355187144 Z30.09 Benefits, risks, and alternativ es to Depo Provera d/w pt. Pt. expressed understand ing. All pt. questions answered. Consent signed and in chart. UPT was negative two weeks ago and today. Depo Provera shot given. RTO PRN + 3 mo. for next Depo shot. [id number] [facility] [address] [place] [address] 02/02/2016 09:25:17 02/04/2016 03:48:40 Amenorrhea 21212762 N91.2 preg test -neg Upper resp iratory infection 49091962 J06.9 supportive care Increase fluid Lymphadenitis 94399581 I 88.9 R/posterio r cervical check labs [id number] Arabella Cook Mal (SHAGGER) [address] [facility] [place] [address] 02/06/2016 14:24:04 02/07/2016 16:19:49 Contraception care management 734137348 Z30.9 Pt wants the pill. She believes she can remember to take it every day. Venereal d isease screening 960551765 Z11.3 STD panel was completely negative. Individual results d/w pt. [id number] Arabella Cook Mal (SHAGGER) [address] [place] [address] 02/12/2016 14:39:28 02/16/2016 15:43:42 Candidal vulvovaginitis 43933882 B37.3 Pt.'s vaginal culture was positive for yeast, dwp. Rx Diflucan sent to pharmacy. Instructio cherelle discussed. Contracept ion care management 644364539 Z30.9 UPT was negative 2 weeks ago and today. Pt. may start OCPs. [id number] [facility] (Adult Med) [address] [place] [address] 03/07/2016 11:48:10 03/08/2016 09:58:39 Cervical lymphadenopathy 311593748 R59.0 pt still has enlarged LN labs -ok will check CT neck [id number] Montserrat Warner APN, CROSSING [employer]ER-C [facility] (Adult Med) [address] [facility] [place] [address] 10/17/2016 11:36:56 10/17/2016 14:35:33 Umbilical discharge 43824717 L08.82 topical mupirocin bid and po Bactrim bid; dwp s/s infection worsening to call or rto; pt going to [place] and was concerned about keeping it covered. [id number] MD Jessica Gagehalto (Adult Med) [address] [place] [address] 01/27/2017 16:08:59 01/30/2017 13:44:45 Abdominal pain 21063487 R10.9 possibly gastritis Obesity 540657005 E66.9 healthy diet and exercise discussed with pt [id number] [facility] [address] [place] [address] 08/21/2017 11:59:02 08/25/2017 11:38:13 Backache 522218721 M54.9 possibly muscle strainheat therapy Obesity 642262155 E66.9 healthy diet and exercise discussed with pt [id number] MD Mal Gage (Adult Med) [address] [facility] [place] [address] 10/20/2017 14:11:26 10/20/2017 14:48:21 Hypothyroidism 62506135 E03.9 continue levothyrox in 25 mcg dailypt just had labs done [id number] Arabella Resendez (SHAGGER) [address] [place] [address] 11/03/2017 13:49:51 01/12/2018 16:45:26 Gynecologic examination 28531455 Z01.411 First pap done today. Venereal d isease screening 529842815 Z11.3 RTO one week for results. [id number] Arabella Resendez (SHAGGER) [address] [place] [address] 11/17/2017 14:48:34 11/25/2017 12:44:35 Oral contraceptive prescribed 739400331 Z30.011 Venereal d isease screening 064185008 Z11.3 Vaginal culture was negative for gonorrhea, chlamydia, and trichomona s, dwp. STD panel was also completely negative. Individual test results dwp. Gynecologi c examination 12476079 Z01.411 Pap was negative, dwp. [id number] MD Jessica Gagehalto (Adult Med) [address] [place] [address] 06/22/2018 15:25:13 06/22/2018 16:13:42 Hypothyroidism 94457725 E03.9 continue levothyrox in 25 mcg dailypt to do lab Obesity 696691367 E66.9 healthy diet and exercise discussed with pt [id number] [facility] (Adult Med) [address] [place] [address] 02/12/2019 09:05:52 02/15/2019 09:44:37 Hypothyroidism 70518119 E03.9 Hx of hypothyroi dismCurren tly takes levothyrox ine 25 mg.Patient is worried her medication is not at the right dose because experienci ng more acne, fatigue, anxiety, and trouble losing weight. - Will check thyroid function, last checked 10/20/17 Mixed anxi ety and depressive disorder 847829748 F41.8 Anxiety and depression worse recently because she has been struggling with money issues due to her jobRecentl y started a full-time job and starting to feel better/les s stressedHa s been on Celexa and Fluoxetine in the past, did not like the way they made her feel, not interested in medication today- Advised patient to make an appointmen t with counseling - Come back to office if symptoms get worse Acne 96369041 L70.9 Recent worsening of her facial acneWorrie d it is due to her thyroidCur rently 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 [id number] [facility] (Adult Med) [address] [place] [address] 03/29/2019 10:05:29 03/30/2019 11:18:31 Acute sinusitis 42849274 J01.90 Complainin g of nasal congestion , green/yell ow rhinorrhea , non-produc tive cough, ear fullness, improving sore throat, and body aches x 5 daysOTC treatment with Tylenol sinus and cold only providing minimal reliefOn PE: middle ear fluid present, maxillary sinus TTP, nares non-patent , and nasal turbinates erythemato us- Advised patient to continue with supportive care at home- Will start amoxicilli n BID x 5 days- Advised to:- Drink lots of fluids, whatever you like except for alcoholic beverages. - Run a cool-mist humidifier in your room at night. - For sore throat, gargle warm salt water. - Get extra rest and do not over-exert yourself. - Do not mix multiple medication s with similar ingredient s (for instance Theraflu Non-drowsy and Tylenol Sinus). Doubling up on acetaminop hen and/or decongesta nts such as pseudephed rine can be dangerous. - Robitussin DM at bed time only (if cough keeps you awake) (and if not or on SSRI antidepres sants. 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 Use this to help with inflammato ry acne.- Will also start on tretinoin cream at night before bed.Advise d patient to:1. Avoid touching the skin with hands. 2. Choose oil free or water based cosmetics. 3. Cleanse affected area twice daily with gentle cleanser to decrease oil accumulati on. 4. Avoid picking at lesion. 5. Acne takes a while to cure; you should start seeing results in about 4 weeks. 6. Wear sunscreen with an SPF of 15 or higher daily. [id number] [facility] (Adult Med) [address] [place] [address] 10/15/2019 09:57:03 10/19/2019 11:03:38 Hypothyroidism 12863580 E03.9 Hx of hypothyroi dismRecent labs showed euthyroid on levothyrox ine 25 mg.- c/w medication Obesity 029490259 E66.9 Current weight: 230 pounds at homeLookin g at weights from the office since 2014: steady increase from 170 to 230 poundsBMI > 40She remembers developing a habit of emotional eating and overeating her senior year of high school, I was a thin cheerleade r and then over the years I have just continued to gain weight .On ce COVID hit 2-3 months ago, she realized she needed to change her lifestyle. Her diet now consists of salad, turkey burgers, chicken, veggies, and water. Some days she eats normally and other days she will overeat to the point of her stomach hurting.Dara boston has also been trying to be more active, she has been doing cardio workouts (including walking and weight lifting) x 1 hour daily, she has been working out with a friend who has a personal secretary, she is disappoint ed because she has not lost more than 3-5 pounds with these lifestyle changes where her friend has been dropping weight easier.Has family history of obesity, her mother's mom and sister.She is interested in other weight loss options, including nutritioni st and medication .- discussed her options including nutritioni st, medication , and even surgery. Patient does not currently have insurance and unsure if she would be able to afford visits with a nutritioni st and def. can not afford a surgery at this time.- discussed medication s, decided Contrave may help due to her hx of emotional eating and overeating - will send to [facility] since cheaper on 340b program. Patient aware of slow titration, especially if she develops nausea- f/u in 1 month with weight checks Acne 35250416 L70.9 Has reported a decrease in her acne after she has changed her diet, she rarely even has to use the Tretinoin cream now- continue with healthy lifestyle changes [facility] examination 519220291 Z00.00 PHQ 06/27 was negative in office today (1 out of 27) [id number] [facility] (Adult Med) [facility] [place] [address] 12/01/2019 11:55:01 12/02/2019 13:24:22 Body mass index 30+ - obesity 832050546 Z68.41 Pt was on Contrave for 3 weeks until it caused hivesShe was happy with this medication before this happenedSh ludy is a little nervous about starting a new weight loss medication and would like to continue working on losing weight on her own currently. Discussed with the pt that we could see an endocrinol ogist to see if her hypothyroi dism could be contributi ng to her weight, nutritioni st, or possible new medication - Continue with weight loss, exercise, healthy eating, and spin class- Continue to follow up as needed or every month if she thinks this will be beneficial for her weight loss journey Allergic reaction 778709 005 T78.40XA pt was seen at [facility] ER on 11/17 for hives that increased in size, increased pruritis, and bilateral hand edema after being on Contrave for 3 weeksShe was told to stop medication , given a steroid injection and PO steroid pills to take for the next 5 daysOn PE the pt has no hives and skin is unremarkab le- Added Contrave to her allergy list [id number] [facility] (Adult Med) [address] [place] [address] 04/18/2020 08:19:50 04/18/2020 14:12:10 [id number] [facility] (Adult Med) [address] [place] [address] 10/04/2020 10:44:42 10/05/2020 10:06:11 Attention deficit hyperactivity disorder 071796166 F90.9 History of hypothyroi dism, anxiety, and situationa l depression Patient concerned about ADHD diagnosis She remembers always doing poorly in school as a child because she was unable to focus, she does not remember having issues with being hyperactiv e in the classroom. Saw a pediatrici an as a child but does not remember seeing a specialist for ADHD as a child. As an adult now, states she can not focus on one thing at a time, for example she has issues reading one page of a book without her mind going somewhere else. Other things she has noticed in the past 6 years, poor memory, forgets conversati ons, forgets to follow through with set plans, insomnia due to racing thoughts at night, social anxiety, can not keep up with keeping her house clean, disorganiz ed at work and home, being very chatty including interrupti ng others, impulsive with money, procrastin ation, and issues with finishing a task. PHQ 2/9 was negative in office today (2 out of 27) - sounds like ADD due to inattentiv e symptoms - will send referral for psych referral for full adult ADHD evaluation - will start on strattera for now to see if this helps, start by taking 1 tablet in the morning x 1 week and then increase to 1 tablet twice daily - f/u in 1 month [id number] [facility] (Adult Med) [address] [place] [address] 01/07/2022 14:44:56 01/08/2022 08:39:17 Hypothyroidism 90705753 E03.9 Pt presenting for routine hypothyroi dism f/u and med refill. Pt has been taking levothyrox ine for years and denies any adverse SE with this medication -TSH labs ordered as below; will contact pt with results and proceed accordingl y-Renew levothyrox ine 25mcg Morbid obesity 193342687 E66.01 BMI 41 today (01/07/22). Pt reports she is trying to lose weight and is being more mindful with her diet-Pt encouraged to continue healthy diet and lifestyle changes-A1 c, lipid panel, CMP, vit D, CBC labs ordered today; will contact pt with results and proceed accordingl y [id number] [facility] [address] [place] [address] 06/13/2022 16:21:01 06/17/2022 11:29:55 Depression screening 182399348 Z13.31 PHQ 0 Allergic rhinitis 524593 04 J30.9 trial claritin due to rhinorrhea Morbid obesity 149673095 E66.01 Thoracic back pain 08451 8004 M54.6 x5 daysmost likely due to excessive coughing and worsening with taking deep breathscou ld be irritation to muscles in between ribsVSSPEx - nlreassure d ptc/w heating pad, stretching trial NSAIDs PRNf/u if sx do not improve in 1 wk, can trial short course of steroid Cough 81047174 R05.9 dryimprovi ngdoes not keep her up at nightc/w OTC meds [id number] LEVI AMBRIZ (Adult Med) [address] [place] [address] 08/19/2022 10:09:53 08/20/2022 13:54:32 Morbid obesity 137141689 E66.01 Pt reports she is trying to lose weight and is being more mindful with her diet-Pt encouraged to continue healthy diet and lifestyle changes-A1 c, lipid panel, CMP, vit D, CBC labs ordered today; will contact pt with results and proceed accordingl y Hypothyroidism 97826282 E03.9 Pt presenting for routine hypothyroi dism f/u and med refill. 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 Starts new job tomorrow. Doing well overall but has been stressful. PHQ 2/9 was negative in office today (0 out of 27) [id number] VICKIE Hernandez (SHAGGER) [address] [place] [address] 09/30/2022 15:16:38 10/02/2022 15:01:35 Routine care 090374686 Z34.00 [id number] LEVI LEACH (SHAGGER) [address] [place] [address] 10/22/2022 14:47:34 10/23/2022 09:05:51 Routine care 256939475 Z34.00 27yo F with h/o hypothyroi dism presenting for initial visit at 10+1 weeks. LMP 08/12/22. Denies bleeding, cramping, discharge, fevers. BSUS performed showing SIUP at 10+3 weeks, FHT present at 169. Initial labs reviewed, TSH elevated at 4.6, see below. OB education provided and SAB precaution s discussed. cfDNA drawn. RTC in 4 weeks. Obesity 831757044 E66.9 Starting BMI 44. Advised limiting weight gain to 11-20#. Consider early GTT. Frequent growth assessment s. Hypothyroidism 15027502 E03.9 Last TSH 4.6. PCP had just increased her dose of levothyrox ine prior to labs. She has been taking levo 25mcg 5 days per week and 50mcg two days per week. Will recheck labs today. Screening for malignant neoplasm of cervix 215306977 Z12.4 Pap updated today. [id number] MD Alex Yang [address] [place] [address] [place] [address] 12/05/2022 10:40:25 12/10/2022 09:49:47 Routine care 347437938 Z34.92 Hypothyroidism 34477241 E03.9 --Recheck TSH and T4 every 4 weeks Obesity 457460221 E66.9 [id number] MD Alex Yang [address] [place] [address] 01/27/2023 15:59:39 01/29/2023 10:42:25 Routine care 392880527 Z34.92 Hypothyroidism 67572383 E03.9 --Recheck TSH and T4 every 4 weeks Mixed anxi ety and depressive disorder 386630088 F41.8 --Declines medication at this time. Obesity 334993824 E66.9 [id number] MD Alex Yang [address] [place] [address] 02/17/2023 15:52:27 02/20/2023 14:45:33 Routine care 054499113 Z34.92 Administra tion of diphtheria, pertussis, and tetanus vaccine 375101974 Z23 Hypothyroidism 01203821 E03.9 --Recheck TSH and T4 every 4 weeks Mixed anxi ety and depressive disorder 357681887 F41.8 --Declines medication at this time. Obesity 486530860 E66.9 [id number] MD Alex Yang [address] [place] [address] 03/10/2023 15:42:27 03/12/2023 11:28:12 Routine care 684503216 Z34.92 Hypothyroidism 95018240 E03.9 --Continue levothyrox ine 25mcg daily--Rec heck TSH and T4 every 4 weeks Mixed anxi ety and depressive disorder 925729232 F41.8 --Declines medication at this time. Right uppe r quadrant pain 900068255 R10.11 Fundal hei ght high for dates 755807935 O34.750 [id number] MD Alex Yang [address] [place] [address] 03/24/2023 15:39:41 03/26/2023 12:27:03 Routine care 834603996 Z34.92 Hypothyroidism 66378066 E03.9 --Continue levothyrox ine 50mcg daily--Rec heck TSH and T4 every 4 weeks Mixed anxi ety and depressive disorder 056065528 F41.8 --Declines medication at this time. [id number] MD Alex Levi 14 OB [address] [facility] [place] [address] 04/01/2023 13:48:39 04/02/2023 10:00:22 Normal 31898028 Z34.90 [id number] MD Alex Yang 14 OB [address] [facility] [place] [address] 04/08/2023 10:50:59 04/14/2023 13:00:44 Routine care 233498783 Z34.92 Hypothyroidism 57128796 E03.9 --Continue levothyrox ine 50mcg daily--Rec heck TSH and T4 every 4 weeks Mixed anxi ety and depressive disorder 949816064 F41.8 --Declines medication at this time. [id number] YANA Pearson 14 OB [address] [facility] [place] [address] 04/15/2023 16:27:36 04/17/2023 14:44:38 Hypothyroidism 48276262 E03.9 Routine an tenatal care 997869851 Z34.93 [id number] YANA Pearson [address] [place] [address] [place] [address] 04/22/2023 11:29:44 04/23/2023 09:18:50 Routine care 838986064 Z34.93 [id number] MD Alex Yang 14 OB [address] [facility] [place] [address] 04/29/2023 14:40:51 04/30/2023 12:44:08 Routine care 993741469 Z34.92 Hypothyroidism 46961974 E03.9 --Continue levothyrox ine 50mcg daily Mixed anxi ety and depressive disorder 866137083 F41.8 --Declines medication at this time. Increased blood pressure 96033311 R03.0 --Sent to L&D for assessment of pre-eclamp yaneli [id number] Rik Garcia MD [place] [address] [place] [address] [place] [address] 05/09/2023 14:07:59 05/15/2023 03:47:23 [id number] MD Alex Yang 14 OB [address] [facility] [place] [address] 05/13/2023 14:33:48 05/15/2023 03:47:23 [id number] Deana Santos LPN [place] [address] [place] [address] [place] [address] 05/22/2023 14:13:49 05/24/2023 03:47:59 [id number] MD Alex Yang [address] [place] [address] [place] [address] 06/16/2023 14:17:23 06/17/2023 13:31:16 care 056895600 Z39.2 --Pt doing well Contracept ion care management 541349428 Z30.9 --Pt desires Nexplanon- -Will RTC for insertion Depression screening 171 261259 Z13.31 [id number] MD Alex Yang [address] [place] [address] [place] [address] 07/30/2023 14:00:08 07/31/2023 12:12:19 Insertion of subcutaneous contraceptive 731514159 Z30.46 --Pt informed that she should use a back up method for at least 7 days Morbid obesity 951319184 E66.01 Essential hypertension 08515290 I10 [id number] MD Alex Yang 14 OB [address] [facility] [place] [address] 10/29/2023 14:30:08 10/31/2023 09:52:14 Removal of subcutaneous contraceptive done 7950194594 27212 Z98.890 --Nexplano n removed without issue Contracept ion care management 862009629 Z30.9 --Pt desires OCP's Morbid obesity 479957369 E66.01 Health Concerns Section Related Observation LastModified by Organization Detai ls LastModified Time None Recorded Concern Status LastModified by Organization Details LastModified Time None Recorded Advance Directives Directive N: Payers Encounter Date Sequence Insurance Name Policy Number Policy Sanchez Covered Member ID Sanchez Member ID Guarantor Name 05/13/2023 1 [facility] (O) [id number] Nehemias Popet [id number] Daniela Gonzalez 05/22/2023 1 [facility] (O) [id number] Nehemias Popet [id number] Daniela Gonzalez 06/16/2023 1 [facility] (PPO) [id number] Nehemias Gonzalez [id number] Daniela Gonzalez 07/30/2023 1 [facility] (O) [id number] Nehemias Gonzalez [id number] Daniela Gonzalez 10/29/2023 1 [facility] (O) [id number] Nehemias Popet [id number] Daniela Gonzalez Notes Date Note Type Note Provider Name and Address Organization Details Recorded Time 06/16/2023 text/html VisitReported bypatient.Onset/Arun ing:date of delivery: (05/05/23) Quality:primary LST C/S Context:complicatio ns of : none; complications of labor: arrest of dilation; complications: none; feeding choice: bottle; good support from partner/family Associated Symptoms:no abnormal bleeding; no pelvic pain; laceration well healed; no constipation; no fecal incontinence; no dysuria; no urinary incontinence; no fever; no mastitis Rik Garcia MD Attn: [address] [place], [address], [facility] 06/16/2023 16:15:35 07/30/2023 text/html Patient presents for Nexplanon insertion. She denies any other complaints. Rik Garcia MD Attn: [address] [place], [address], [facility] 07/30/2023 15:27:24 10/29/2023 text/html Patient presents for Nexplanon removal. She desires low dose OCPs. The patient denies any other complaints. Rik Garcia MD Attn: [address] [place], [address], [facility] 10/29/2023 19:35:16 OBGyn Episode Ob Episode Information Episode Created Date Number of Fetuses Patient Bloodtype Patient rh Status Prepregnancy Weight lbs Domestic Partner Domestic Partner Phone Father Name Exercise Instructor Status 10/01/19 23 1 A Positive 242 Nehemias CLOSED Fetus Data First Name Last Name Admitted to NICU Weight (g) Sex Living Outcome Pediatric Complications Fetus ID Race Codes Race Delivery Type Betty stover 2659.18 31 F true Full Term 25541 2106-3 White Problems Problem Notes yes to circumcise, try breas t feeding, yes to epidural, sock mender unknown yet . PPBC not sure Problem Name Start Date End Date Resolution Snomed Code Not e Administration of diphtheria , pertussis, and tetanus vaccine 314209161 Obesity 01/27/2017 144069154 Hypothyroidism 07/14/2017 18015969 new onset Alec Calculation Initial Alec Date Initial Exam Date Initial Exam Provider Initial Ultrasound Date Last Menstrual Period Date Ultra Sound Weeks Gestation 05/19/2023 10/22/2022 [email or web address] 10/22/2022 08/12/2022 10 Eighteen To Twenty Week Alec Update Ultra Sound Date Fundal Height At Umbil Quickening Date Ultra Sound Latest Weeks Gestation Final Alec Confirmed By Final Alec Confirmed Date Final Alec Date Ultra Sound Latest Days Gestation 0 [email or web address] 10/22/2022 05/19/19 24 0 Pre- Flowsheet Flowsheet Date 09/30/2022 Montemayor Score Blood Edema Fundus Height Fundus Units Glucose Ketones Leukocytes Nitrite Labor Signs Protein Cervic Dilation Cervic Effacement Cervic Station Type Weight in lbs Pre/Post Dialysis Refused With clothes 240.087507031017 BP Diastolic BP Location Tested BP Systolic BP Type 98 132 sitting 72 112 sitting Fetus Heart Rate Present Fetus Movement Comments Flowsheet Date 10/22/2022 Montemayor Score Blood Edema Fundus Height Fundus Units Glucose Ketones Leukocytes Nitrite Labor Signs Protein Cervic Dilation Cervic Effacement Cervic Station 10 wks none Type Weight in lbs Pre/Post Dialysis Refused With clothes 242.699592352579 BP Diastolic BP Location Tested BP Systolic BP Type 82 112 sitting Fetus Heart Rate Present A 169 Present Fetus Movement Comments 27yo F with h/o hypothy roidism presenting for initial visit at 10+1 weeks. LMP 08/12/22. Denies bleeding, cramping, discharge, fevers. BSUS performed showing SIUP at 10+3 weeks, FHT present at 169. Initial labs reviewed, TSH elevated at 4.6, levo dose was increased. Rechecking TSH today. Pap updated. OB education provided and SAB precautions discussed. cfDNA drawn. RTC in 4 weeks. Flowsheet Date 12/05/2022 Montemayor Score Blood Edema Fundus Height Fundus Units Glucose Ketones Leukocytes Nitrite Labor Signs Protein Cervic Dilation Cervic Effacement Cervic Station neg none none negative none 1+ Type Weight in lbs Pre/Post Dialysis Refused With clothes 243.897250996128 BP Diastolic BP Location Tested BP Systolic BP Type 66 116 sitting Fetus Heart Rate Present A 150's Present Fetus Movement Comments Patient denies any complaint s. CBE and pelvic exam performed. Will obtain TSH, T4 and AFP. Will schedule anatomy sonogram. RTC in 4 weeks. Flowsheet Date 01/27/2023 Montemayor Score Blood Edema Fundus Height Fundus Units Glucose Ketones Leukocytes Nitrite Labor Signs Protein Cervic Dilation Cervic Effacement Cervic Station neg none 26 cm none negative none neg Type Weight in lbs Pre/Post Dialysis Refused With clothes 225.319734852409 BP Diastolic BP Location Tested BP Systolic BP Type 88 124 sitting Fetus Heart Rate Present A 140's Present Fetus Movement A Yes Comments Patient admits to FM, denies VB, LOF and CTXs. Will obtain DMS, CBC, TSH and T4 on Friday. RTC in 3 weeks. labor precautions given. Flowsheet Date 02/17/2023 Montemayor Score Blood Edema Fundus Height Fundus Units Glucose Ketones Leukocytes Nitrite Labor Signs Protein Cervic Dilation Cervic Effacement Cervic Station neg none 31 cm none negative neg Type Weight in lbs Pre/Post Dialysis Refused With clothes 264.064589146904 BP Diastolic BP Location Tested BP Systolic BP Type 81 119 sitting Fetus Heart Rate Present A 125 Present Fetus Movement A Yes Comments Patient admits to FM, denies VB, LOF and CTXs. Tdap vaccine today. Will recheck TSH and T4 at next visit. RTC in 3 weeks. Flowsheet Date 03/10/2023 Montemayor Score Blood Edema Fundus Height Fundus Units Glucose Ketones Leukocytes Nitrite Labor Signs Protein Cervic Dilation Cervic Effacement Cervic Station neg none 36 cm none negative none neg Type Weight in lbs Pre/Post Dialysis Refused With clothes 267.844257546734 BP Diastolic BP Location Tested BP Systolic BP Type 78 109 sitting Fetus Heart Rate Present A 140's Present Fetus Movement A Yes Comments Patient admits to RUQ pain t hat is a burning sensation. She states that the pain radiates to her back and is worse at night. She has noticed that certain foods aggravate the pain, but she takes no medication for relief. She admits to FM, denies VB, LOF and CTXs. labor precautions given. RTC in 2 weeks. Flowsheet Date 03/24/2023 Montemayor Score Blood Edema Fundus Height Fundus Units Glucose Ketones Leukocytes Nitrite Labor Signs Protein Cervic Dilation Cervic Effacement Cervic Station neg none 36 cm none large none neg Type Weight in lbs Pre/Post Dialysis Refused With clothes 274.455189078944 BP Diastolic BP Location Tested BP Systolic BP Type 82 120 sitting Fetus Heart Rate Present A 140's Present Fetus Movement A Yes Comments Patient admits to FM, denies VB, LOF and CTXs. Pt admits to numbing and tingling in her finger tips, she states she just ordered wrist splints. labor precautions given. RTC in 2 weeks. Flowsheet Date 04/01/2023 Montemayor Score Blood Edema Fundus Height Fundus Units Glucose Ketones Leukocytes Nitrite Labor Signs Protein Cervic Dilation Cervic Effacement Cervic Station none 34 cm none neg Type Weight in lbs Pre/Post Dialysis Refused With clothes 274.073799323394 BP Diastolic BP Location Tested BP Systolic BP Type 82 120 sitting Fetus Heart Rate Present A 145 Present Fetus Movement A Yes Comments Talked about carpal tunnel / ulnar tunnel challenges and the keys to immobilization of the wrist.lots of advice / strategies, splints, mary wrap, ice, etc.active baby, no new OB issues other than the carpal tunnel. Flowsheet Date 04/08/2023 Montemayor Score Blood Edema Fundus Height Fundus Units Glucose Ketones Leukocytes Nitrite Labor Signs Protein Cervic Dilation Cervic Effacement Cervic Station trace none 37 cm none negative none neg Type Weight in lbs Pre/Post Dialysis Refused With clothes 276.419969276759 BP Diastolic BP Location Tested BP Systolic BP Type 90 137 sitting 86 134 sitting Fetus Heart Rate Present A 140's Present Fetus Movement A Yes Comments Patient admits to FM, denies VB, LOF and CTXs. Will retest TSH and T4 at next visit. Pretrm labor precautions given. RTC in 1 week. Flowsheet Date 04/15/2023 Montemayor Score Blood Edema Fundus Height Fundus Units Glucose Ketones Leukocytes Nitrite Labor Signs Protein Cervic Dilation Cervic Effacement Cervic Station none 37 cm none Type Weight in lbs Pre/Post Dialysis Refused With clothes 279.289776519664 BP Diastolic BP Location Tested BP Systolic BP Type 89 127 sitting Fetus Heart Rate Present A 130 Present Fetus Movement A Yes Comments doing well with no complaint s. positive movement, denies contractions. tsh and t4 drawn today, will call with results. rtc in one week. labor precautions reviewed. Flowsheet Date 04/22/2023 Montemayor Score Blood Edema Fundus Height Fundus Units Glucose Ketones Leukocytes Nitrite Labor Signs Protein Cervic Dilation Cervic Effacement Cervic Station none cm none Type Weight in lbs Pre/Post Dialysis Refused Weight 279.959350262669 BP Diastolic BP Location Tested BP Systolic BP Type 94 136 sitting Fetus Heart Rate Present A 130's Present Fetus Movement A Yes Comments doing well with no complaint s. gbs, nuswab and 36 week labs done today. pt verbalizes pos movement and denies contractions. counseled on kick counts, labor precautions and when to go to labor and delivery. rtc in one week with Dr. Garcia. pt v/u. Flowsheet Date 04/29/2023 Montemayor Score Blood Edema Fundus Height Fundus Units Glucose Ketones Leukocytes Nitrite Labor Signs Protein Cervic Dilation Cervic Effacement Cervic Station neg none 39 cm none negative none neg 0cm Type Weight in lbs Pre/Post Dialysis Refused With clothes 279.919619063367 BP Diastolic BP Location Tested BP Systolic BP Type 103 156 sitting Fetus Heart Rate Present A 130's Present Fetus Movement A Yes Comments Patient admits to FM, denies VB, LOF and CTXs. Patient denies headache, RUQ pain but admits to visual changes. Pt sent to L&D for assessment of pre-eclampsia. Plan for IOL. Flowsheet Date 05/09/2023 Montemayor Score Blood Edema Fundus Height Fundus Units Glucose Ketones Leukocytes Nitrite Labor Signs Protein Cervic Dilation Cervic Effacement Cervic Station Type Weight in lbs Pre/Post Dialysis Refused BP Diastolic BP Location Tested BP Systolic BP Type 94 L arm 128 sitting Fetus Heart Rate Present Fetus Movement Comments Flowsheet Date 05/13/2023 Montemayor Score Blood Edema Fundus Height Fundus Units Glucose Ketones Leukocytes Nitrite Labor Signs Protein Cervic Dilation Cervic Effacement Cervic Station Type Weight in lbs Pre/Post Dialysis Refused BP Diastolic BP Location Tested BP Systolic BP Type 100 L arm 134 sitting Fetus Heart Rate Present Fetus Movement Comments Flowsheet Date 05/22/2023 Montemayor Score Blood Edema Fundus Height Fundus Units Glucose Ketones Leukocytes Nitrite Labor Signs Protein Cervic Dilation Cervic Effacement Cervic Station Type Weight in lbs Pre/Post Dialysis Refused BP Diastolic BP Location Tested BP Systolic BP Type 82 L arm 140 sitting Fetus Heart Rate Present Fetus Movement Comments Flowsheet Date 06/16/2023 Montemayor Score Blood Edema Fundus Height Fundus Units Glucose Ketones Leukocytes Nitrite Labor Signs Protein Cervic Dilation Cervic Effacement Cervic Station Type Weight in lbs Pre/Post Dialysis Refused With clothes 253.113987662160 BP Diastolic BP Location Tested BP Systolic BP Type 83 117 sitting Fetus Heart Rate Present Fetus Movement Comments Menstrual History Last Menstrual Date Menses Monthly On Bcp Conception Prior Menses Frequency Hcg Plus Date Menarche Onset Age 0308/12/2022 true false 5 13 Genetic Screening And Infection History Question Response Note Patient's Age Will Be 35 Yea rs Or Older At Estimated Date of Delivery false Thalassemia (Faroese, Yakut, Mediterranean, Or Background): MCV < 80 false Neural Tube Defect (Meningom yelocele, Spina Bifida, Or Anencephaly) false Congenital Heart Defect false Down Syndrome false Rick-Sachs (eg, Restorationist, Cajun, Estonian-Ellsworth) f alse Vidhya Disease false Sickle Cell Disease Or Trait () false Hemophilia Or Other Blood Disorders false Muscular Dystrophy false Cystic Fibrosis false Ritchie's Chorea false Mental Retardation/Autism false If Yes, Was Person Tested For Fragile X? false Other Inherited Genetic Or Chromosomal Disorder false Maternal Metabolic Disorder (eg, Type 1 Diabetes , PKU) false Patient Or Baby's Father Had A Child With Defects Not Listed Above false Recurrent Loss, Or A Stillbirth false Medications (including Suppl ements, Vitamins, Herbs, OTC Drugs), Illicit/Recreational Drugs, Alcohol true levothyrox ine If Yes, Agent(s) And Strength/Dosage false Any Other Genetic History false Live With Someone With TB Or Exposed To TB false Patient Or Partner Has History Of Genital Herpes false Rash Or Viral Illness Since Last Menstrual Perio d false History Of STD, Gonorrhea, Chlamydia, HPV, Syphi lis false Other Infection History false History of HIV false History of Hepatitis false Prior GBS-infected child false Delivery Information Delivery Date Delivery Type Labor Anesthesia Weeks Gestation Incision Type Labor Labor Length Hrs Delivered By Post Complications Tubal Sterilization Discharge Date [facility] 38 Low Transvers e Rik Garcia MD Discharge Information Feeding Method Contraceptive Method Maternal HG B and HCT Levels Combination
--- OUTSIDE RECORDS SUMMARY | 2024-06-14 12:51 | XMS_ITS | Referral Summary ---
Author Organization [facility] Address [address] [place] [address] Care Team Providers Care Tool Maker Name Role Phone Shazia Rothman Primary Care Provider [phone] Allergies Active Allergy Reactions Criticality Noted Date [...] 10/09/2015 Overview (08/23/2016): Acute recurrent maxillary sinusitis Social History Tobacco Use Types Packs/Day Years [...] often do you attend chur ch or anabaptism services? Never 05/03/2023 Do you belong to any clubs o r organizations such as tenriism groups, unions, fraternal or athletic groups, or [...] staff should administer the PHQ-9) 0 05/03/2023 [facility] - Occupational Stress [...] place to sleep or slept in a [facility] (including now)? No 05/03/2023 Personal Safety Answer Date Recorded Have you ever been in or are you currently in a harmful physical or emotional relationship or is someone making you feel afraid or unsafe? Denies 05/03/2023 Comments No Sex and Gender Information Value Date Recorded Sex Assigned at Not on file Legal Sex Female 3:03 PM [employer] Gender Identity Not on file Sexual Orientation Not on file Last Filed Vital Signs Vital Sign Reading Time Taken Comments Blood Pressure 133/86 05/07/2023 6:40 AM [employer] Pulse 95 05/07/2023 6:40 AM [employer] Temperature 35.9 ??C (96.6 ??F) 05/07/2023 6:40 AM CS T Respiratory Rate 17 05/07/2023 6:40 AM [employer] Oxygen Saturation 99% 05/07/2023 1:00 AM [employer] Inhaled Oxygen Concentration - - Weight 126.6 kg (279 lb) 05/03/2023 7:52 PM [employer] Height 160 cm (5' 3 ) 05/03/2023 7:52 PM [employer] Body Mass Index 49.42 05/03/2023 7:52 PM [employer] Plan of Treatment Not on file Insurance CHOICE PLUS CHOICE PLUS Member Subscriber Plan / Payer (Ef fective 2023-Present) Name:Daniela Gonzalez Relation to Subscriber:Self Name:Daniela Gonzalez Payer ID:[id number] (NAIC) Type:[facility] HMO/PPO Address: [address] CHOICE PLUS Member Subscriber Plan / Payer (Ef fective 2023-Present) Name:Daniela Gonzalez Relation to Subscriber:Self Name:Daniela Gonzalez Payer ID:[id number] (NAIC) Type:[facility] HMO/PPO Address: [address] [place] [address] Advance Directives For more information, please contact: [phone] * Full Code (Latest Code Status on [...] n case of cardiopulmonary arrest Care Teams Tool Maker Relationship Specialty [place] [address] [place] [id number] PCP - General Physician Adjunct Mathematics Instructor 12/05/22
== END 2024-06-14 12:13 | disposition home or self-care (01) ==
LOC: ANHBWCLAB 12:13
PROVIDERS: PCP Nurse Practitioner Adult Health; Visit Provider Nurse Practitioner Adult Health
DX: E03.9 Hypothyroidism, unspecified (principal)
CPT/HCPCS: 36415; 84443

== ENCOUNTER 2024-06-24 14:29 | Outpatient (CLI) | payer BC, SELFPAY ==
--- NOTE | ~2024-06-24 | CT_ITS ---
EXAMINATION: CT brain wo con DATE: 06/24/2024 14:42 INDICATION: Unspecified visual disturbance. TECHNIQUE: Computed tomography (CT) of the head was performed without intravenous contrast. The mA wa s adjusted according to patient size. Iterative reconstruction technique was employed. The dose-lengt h product was 605.33 mGy-cm. COMPARISON: None FINDINGS: There is no intracranial hemorrhage, acute infarction, or abnormal intracranial mass lesion . The ventricles are normal in size. There is mild mucosal thickening in the paranasal sinuses. The o rbits are normal. The mastoid air cells are normal. IMPRESSION: 1. Normal brain. Reviewed, dictated and finalized at location A. TABLE SORTER IMPRESSION: 1. Normal brain.
--- OUTSIDE RECORDS SUMMARY | 2024-06-24 14:41 | XMS_ITS | Data Portability ---
Author Organization [facility] Address [address] [place] [address] Care Team Providers Care Plastics Nurse Name Role Phone LYSSA MEDRANO Primary Care Provider DIANE UNDERWOOD Comprehensive Ophthalmologist Assessment No assessment recorded. Plan of Treatment Reminders Order Date Submit Date Provider Last Modified By Organization Details Last Modified Time Details Appointments None record ed. Lab pregna ncy test, urine 2023 024 [email or web address] In-Office Order, Internal Use Only DO Not Attach Compendium DO Not Attach Compendium, Do Not Delete/merge, [id number] 4 15:26:59 Referral primar y care provid er referr al 2023 024 [email or web address] Not available 4 09:59:19 Procedures None record ed. Surgeries None record ed. Imaging None record ed. Medication Orders Nexpla non 68 mg subder mal implan t 2023 024 [email or web address] Not available 4 16:52:44 Loestr in Fe 06/07 (28-Da y) 1 mg-20 mcg (21)/7 5 mg (7) tablet 2023 024 [id number], [address], [place], [place], [id number], 4 19:34:03 Patient TargetsNo targets recorded. Patient Instructions Encounter Date Encounter Id Patient Instructions Last Modified By Organization Details Last Modified Time 06/16/2023 [id number] edinburgh depression scale* traci Not available 06/16/2023 16:15:30 07/30/2023 [id number] learning about high blood pressure traci Not available 07/30/2023 15:26:57 A healthy lifestyle: care instructions traci Not available 07/30/2023 15:26:57 10/29/2023 [id number] A healthy lifestyle: care instructions traci Not available 10/29/2023 19:33:57 Reason for Referral Primary Care Provider Referr al for Essential hypertension Referring Physician: Rik Garcia, GANG TAILER, Encounter Date: 07/30/2023 Results Created Date Observation Date Name Description Value Unit Range Abnormal Flag Note LastModifiedBy Organization Detail LastModifiedTime 04/15/2004/16/2023 TSH+F REE T4 TSH 4.100 uIU/m L 0.450- 4.500 Not Available [facility] ([facility]) [address] [place], [address], 04/16/2023 11:13:13 04/15/20 23 04/16/2023 TSH+F REE T4 T4,free(dire ct) 0.72 NG/dL 0.82-1 .77 below low normal Not Available [facility] ([facility]) [address] [place], [address], 04/16/2023 11:13:13 04/15/2004/15/2023 urina lysis , dipst ick Leukocytes Negati ve Not Available In-Office Order Internal Use Only DO Not Attach Compendium DO Not Attach Compendium, Do Not Delete/merge, [id number] 04/15/2023 16:45:04 04/15/20 23 04/15/2023 urina lysis , dipst ick Nitrite negati ve Not Available In-Office Order Internal Use Only DO Not Attach Compendium DO Not Attach Compendium, Do Not Delete/merge, [id number] 04/15/2023 16:45:04 04/15/20 23 04/15/2023 urina lysis [...] 04/15/2023 urina lysis , dipst ick Specific [place] 1.010 Not Available In-Off ice Order Internal [...] DO Not Attach Compendium, Do Not Delete/merge, [id number] 04/15/2023 16:45:04 04/15/20 23 04/15/2023 urina lysis , dipst ick Color Pale Yellow Not Available In-Office Order Internal Use Only DO Not Attach Compendium DO Not Attach Compendium, Do Not Delete/merge, [id number] 04/15/2023 16:45:04 04/22/20 23 04/23/2023 RPR, RFX QN RPR/C ONFIR M TP RPR Non Reacti ve nonrea ctive Not Available [facility] ([facility]) [address] [place], [address], 04/23/2023 07:13:13 04/22/2004/23/2023 HIV AB/P2 4 AG WITH REFLE X HIV Ab/P24 Ag screen Non Reacti ve nonrea ctive HIV Negat [place] HIV-1 /HIV- 2 antib odies and HIV-1 p24 antig en were NOT detec omid. There is no labor atory evide nce of HIV infec tion. Not Available [facility] ([facility]) [address] [place], [address], 04/23/2023 07:13:14 04/22/20 23 04/24/2023 CT, NG, TRICH VAG BY HUBER chlamydia by HUBER Negati ve negati ve Not Available [facility] ([facility]) [address] [place], [address], 04/24/2023 16:13:04 04/22/20 23 04/24/2023 CT, NG, TRICH VAG BY HUBER gonococcus by HUBER Negati ve negati ve Not Available [facility] ([facility]) [address] [place], [address], 04/24/2023 16:13:04 04/22/20 23 04/24/2023 CT, NG, TRICH VAG BY HUBER trich vag by HUBER Negati ve negati ve Not Available [facility] ([facility]) [address] [facility], [place], [address], 04/24/2023 16:13:04 04/22/20 23 04/24/2023 STREP GP B HUBER strep gp B HUBER Negati ve negati ve [facility] rs [facility] Disea se Contr ol and Preve ntion ([facility]) and Ameri can Congr ess of Obste trici ans and Gynec ologi sts (ACOG ) guide lines for preve ntion of perin atal group B strep tococ yanet (GBS) disea se speci fy co-co llect ion of a vagin al and recta l swab speci men to maxim ize sensi tivit y of GBS detec tion. Per the [facility] and [facility], swabb ing both the [...] n is noted . Not Available [facility] ([facility]) [address] [facility], [place], [address], 04/24/2023 16:13:05 04/22/20 23 04/22/2023 urina lysis , dipst ick Leukocytes Negati ve Not Available In-Office Order Internal Use Only DO Not Attach Compendium DO Not Attach Compendium, Do Not Delete/merge, [id number] 04/22/2023 11:37:03 12/05/20 23 04/22/2023 urina lysis , dipst ick Nitrite negati ve Not Available In-Office Order Internal Use Only DO Not Attach Compendium DO Not Attach Compendium, Do Not Delete/merge, [id number] 04/22/2023 11:37:03 04/22/20 23 04/22/2023 urina lysis , dipst ick Urobilinogen .2 Not Available In-Of fice Order Internal Use Only DO Not Attach Compendium DO Not Attach Compendium, Do Not Delete/merge, [id number] 04/22/2023 11:37:03 04/22/20 23 04/22/2023 urina lysis , dipst ick Protein 30 Not Available In-Office Order Internal Use Only DO Not Attach Compendium DO Not Attach Compendium, Do Not Delete/merge, [id number] 04/22/2023 11:37:03 04/22/20 23 04/22/2023 urina lysis , dipst ick pH 7.0 Not Available In-Office Order Internal Use Only DO Not Attach Compendium DO Not Attach Compendium, Do Not Delete/merge, [id number] 04/22/2023 11:37:03 04/22/20 23 04/22/2023 urina lysis , dipst ick Blood Negati ve Not Available In-Office Order Internal Use Only DO Not Attach Compendium DO Not Attach Compendium, Do Not Delete/merge, [id number] 04/22/2023 11:37:03 04/22/20 23 04/22/2023 urina lysis , dipst ick Specific [place] 1.015 Not Available In-Off ice Order Internal Use Only DO Not Attach Compendium DO Not Attach Compendium, Do Not Delete/merge, [id number] 04/22/2023 11:37:03 04/22/20 23 04/22/2023 urina lysis , dipst ick Ketone Negati ve Not Available In-Office Order Internal Use Only DO Not Attach Compendium DO Not Attach Compendium, Do Not Delete/merge, [id number] 04/22/2023 11:37:03 04/22/20 23 04/22/2023 urina lysis , dipst ick Bilirubin Negati ve Not Available In-Office Order Internal Use Only DO Not Attach Compendium DO Not Attach Compendium, Do Not Delete/merge, [id number] 04/22/2023 11:37:03 04/22/20 23 04/22/2023 urina lysis , dipst ick Glucose Negati ve Not Available In-Office Order Internal Use Only DO Not Attach Compendium DO Not Attach Compendium, Do Not Delete/merge, [id number] 04/22/2023 11:37:03 04/29/20 23 04/29/2023 urina lysis , dipst ick Leukocytes Trace Not Available In-Offi ce Order Internal Use Only DO Not Attach Compendium DO Not Attach Compendium, Do Not Delete/merge, [id number] 04/29/2023 15:00:17 04/29/20 23 04/29/2023 urina lysis [...] DO Not Attach Compendium, Do Not Delete/merge, [id number] 04/29/2023 15:00:17 04/29/20 23 04/29/2023 urina lysis , dipst ick pH 7.0 Not Available In-Office Order Internal Use Only DO Not Attach Compendium DO Not Attach Compendium, Do Not Delete/merge, [id number] 04/29/2023 15:00:17 04/29/20 23 04/29/2023 urina lysis , dipst ick Blood Negati ve Not Available In-Office Order Internal Use Only DO Not Attach Compendium DO Not Attach Compendium, Do Not Delete/merge, [id number] 04/29/2023 15:00:17 04/29/20 23 04/29/2023 urina lysis , dipst ick Specific [place] 1.015 Not Available In-Off ice Order Internal Use Only DO Not Attach Compendium DO Not Attach Compendium, Do Not Delete/merge, [id number] 04/29/2023 15:00:17 04/29/20 23 04/29/2023 urina lysis , dipst ick Ketone Negati ve Not Available In-Office Order Internal Use Only DO Not Attach Compendium DO Not Attach Compendium, Do Not Delete/merge, [id number] 04/29/2023 15:00:17 04/29/20 23 04/29/2023 urina lysis , dipst ick Bilirubin Negati ve Not Available In-Office Order Internal Use Only DO Not Attach Compendium DO Not Attach Compendium, Do Not Delete/merge, [id number] 04/29/2023 15:00:17 04/29/20 23 04/29/2023 urina lysis , dipst ick Glucose Negati ve Not Available In-Office Order Internal Use Only DO Not Attach Compendium DO Not Attach Compendium, Do Not Delete/merge, [id number] 04/29/2023 15:00:17 04/29/20 23 04/29/2023 urina lysis , dipst ick Appearance Clear Not Available In-Offi ce Order Internal Use Only DO Not Attach Compendium DO Not Attach Compendium, Do Not Delete/merge, [id number] 04/29/2023 15:00:17 04/29/20 23 04/29/2023 urina lysis , dipst ick Color Pale Yellow Not Available In-Office Order Internal Use Only DO Not Attach Compendium DO Not Attach Compendium, Do Not Delete/merge, [id number] 04/29/2023 15:00:17 06/16/19 24 06/16/2023 edinb urgh postn atal depre ssion scale * Score 4 Not Available In-Office Order Internal Use Only DO Not Attach Compendium DO Not Attach Compendium, Do Not Delete/merge, [id number] 06/16/2023 16:15:19 07/30/19 24 07/30/2023 pregn eleanor test, urine HCG negati ve Not Available In-Office Order Internal Use Only DO Not Attach Compendium DO Not Attach Compendium, Do Not Delete/merge, [id number] 07/30/2023 14:38:38 Result Notes None recorded. Problems Name Problem SNOMED Code Status Onset Date Resolution Date Notes Provider Name and Address Organization Details Recorded Time Hypothyr oidism 93616792 Active 2017 new onset SHERYL [place], [place] - [facility] 4 14:31:26 Pregnanc y 08922585 Completed 202206/16/2023 SHERYL [place], [place] - [facility] 4 14:31:30 Hypothyr oidism 52123671 Completed 2017 new [place] [facility] 4 14:31:26 Obesity 132181018 Completed 2016 SHERYL [place], [place] - [facility] 4 14:31:26 Administ ration of diphther ia, pertussi s, and tetanus vaccine Completed SHERYL [place], [place] - [facility] 4 14:31:26 Mixed anxiety and depressi ve disorder 775247267 Active feeling fine without med Brooke Cary MD Attn: Nevaeh rose,[address] [place], [address], [place] - [facility] 8 12:35:22 Vomiting 568744356 Completed 01/27/2017 Brooke Cary MD Attn: Nevaeh rose,[address] [place], [address], [place] [facility] 7 16:27:41 Dysuria 90390660 Completed 03/29/2019 LEVI AMBRIZ Attn: Nevaeh rose,[address] [place], [address], [place] [facility] 9 10:15:10 Amenorrh ea 33087609 Completed 03/29/2019 LEVI AMBRIZ Attn: Nevaeh rose,[address] [place], [address], [place] - [facility] 9 10:14:14 Upper respirat ory infectio n 10135777 Completed 01/27/2017 Brooke Cary MD Attn: Nevaeh rose,[address] [place], [address], [facility] - [facility] 7 16:27:44 Lymphade nitis 50620162 Completed 04/08/2016 Brooke Cary MD Attn: Nevaeh rose,[address] [facility], [place], [address], [facility] - [facility] 6 12:17:53 Liver function tests outside referenc e range 642717739 Active fatty liver on CT abdomen on 02/02 Brooke Cary MD Attn: Nevaeh rose,[address] [facility], [place], [address], [facility] - [facility] 7 14:06:49 Candidal vulvovag initis 94653484 Completed 03/29/2019 LEVI AMBRIZ Attn: Nevaeh rose,[address] [facility], [place], [address], [facility] - [facility] 9 10:15:07 Lymphade nopathy 71982923 Active 2015 CT neck showed 3 significa ntly enlarged nodes -seeing hematolog ist/ Dr.Woodso narda Cary MD Attn: Nevaeh rose,[address] [facility], [place], [address], [facility] - [facility] 7 15:28:23 Umbilica l discharg e 03916264 Completed 201601/27/2017 Brooke Cary MD Attn: Nevaeh rose,[address] [facility], [place], [address], [facility] - [facility] 7 16:27:51 Obesity 606688445 Active 2016 Fiona laboy MA null, [place] - [facility] 4 14:31:26 Problem Notes None recorded. Procedures Surgical History Date Name Laterality Status Provider Name and Address Organization Details Recorded Time 4 Control Implant Removal completed Rik Garcia MD Attn: Accounting,[address], [place], [address], [place] [facility] 10/29/2023 19:31:27 4 Control Implant Insertion completed Rik Garcia MD Attn: Accounting,[address], [place], [address], [place] [facility] 07/30/2023 15:24:09 3 Suture/Staple [...] Name and Address Organization Details Recorded Time 391877 Contrave medicatio n hives severe Not available 12/01/2019 89186 69 RxNorm Not Available Not Available Not [...] e 50 mcg/actua tion nasal spray,kody pension [place] 1 spray every day by intranas al [...] Not Available Vitals Date Recorded Body height Systolic blood pressure Diastolic blood pressure Provider Name and Address Organization Details Last Updated DateTime 05/13/2023 157.48 cm 134 mm[Hg] 100 mm[Hg] Deana Santos LPN [place] - [facility] 05/13/2023 15:05:40 Date Recorded Body height Systolic blood pressure Diastolic blood pressure Provider Name and Address Organization Details Last Updated DateTime 05/22/2023 157.48 cm 140 mm[Hg] 82 mm[Hg] Deana VICKIE Santos [facility] 05/22/2023 14:21:49 Date Recorded Body height Body mass index (BMI) Body weight Heart rate Systolic blood pressure Diastolic blood pressure Provider Name and Address Organization Details Last Updated DateTime 157.48 cm 46.3 kg/m2 055163. 575369 g 80 /min 117 mm[Hg] 83 mm[Hg] Fiona laboy MA [facility] 14:30:09 Date Recorded Body height Body mass index (BMI) Body weight Systolic blood pressure Diastolic blood pressure Provider Name and Address Organization Details Last Updated DateTime 07/30/2023 157.48 cm 46.8 kg/m2 610993.9 3 g 158 mm[Hg] 88 mm[Hg] Essence Martinez MA [facility] 14:36:55 Date Recorded Body height Body mass index (BMI) Body weight Systolic blood pressure Diastolic blood pressure Provider Name and Address Organization Details Last Updated DateTime 10/29/2023 157.48 cm 41.9 kg/m2 342590.0 8 g 125 mm[Hg] 93 mm[Hg] Essence Martinez MA [facility] 4 14:52:04 Social History Question Answer Notes LastModified by Organization Details LastModified Time Tobacco Smoking Status Never [facility] 04/28/2015 16:22:22 Do You Have An Advance Directive? No Information not available 10/29/2023 What Is Your Level Of Alcohol Consumption? None [email or web address] Information not available 06/13/2022 Is Blood Transfusion Acceptable In An Emergency? Yes Information not available 04/28/2015 What Is Your Level Of Caffeine Consumption? Moderate Information not available 04/28/2015 How Much Tobacco Do You Chew? None Information not available 04/28/2015 In The 14 Days Before Symptom Onset, Have You Had Close Contact With A [facility] While That Case Was Ill? No [...] Or The Highest Degree You Have Received? [id number] Information not available 10/29/2023 What Is Your [...] Anxious, Or Unable To Sleep At Night)? [id number] Information not available 10/29/2023 Do You Use [...] Response Coronary Artery Disease N Other N High Blood Pressure N Atrial Fibrillation N Breast Cancer N Blood Clots N COPD N Depression N Lung Disease N Breast Problem N Anesthesia Complications N Headaches/Migraines N Anxiety Disorder N Muscle, Joint, or Bone Problems N Infertility N Polyps N Acid Reflux (GERD) N Cancer N Stroke N ADHD N Endometriosis N High Cholesterol N Liver Disease N Headaches N Schizophrenia N Thyroid Problems N Kidney or Bladder Problems N GI Problems N Acne Y Skin Problems N Eating Disorder N Anemia N Heart Attack (ID) N Ovarian Cancer N Diabetes N Blood Transfusions N Seizures/Epilepsy N Abuse/Domestic Violence N Asthma Y Allergies N Substance Abuse N Hepatitis N Heart Disease N Pre-Eclampsia N Osteoporosis N Heart Failure N Gynecological History Statement/Question Response Flow Moderate [...] Address Organization Details Recorded Time DTP 7 completed Madeline Hahn [place] null, [place] [facility] 10/04/2020 11:35:38 DTP 7 completed Madeline Hahn [place], [place] [...] [facility] 10/04/2020 11:38:40 Hib, unspecified formulation 7 SHERYL [place], [place] [facility] 10/04/2020 11:38:58 Hib, unspecified formulation 9 shaista Hahn [place], [place] [facility] 10/04/2020 11:39:08 Hep A, unspecified formulation 6 SH[place] [facility] 10/04/2020 11:39:42 Hep A, unspecified formulation 7 completed Madeline [place] [facility] 10/04/2020 11:40:01 HPV, unspecified formulation 8 completed Madeline [place] [facility] 10/04/2020 11:40:37 HPV, unspecified formulation 9 completed Madeline Hahn MA [...] completed Madeline [place], [place] [facility] 10/04/2020 11:44:10 Tdap 3 completed Rik Garcia MD Attn: Accounting,[address] , [place], [address], [facility] - [facility] 02/17/2023 21:06:34 Influenza, split virus, quadrivalent, preservative 5 completed Not Available [facility] 06/05/2019 02:39:16 Past Encounters Encounter ID Performer Location Encounter Start Date Encounter Closed Date Diagnosis/Indication Diagnosis SNOMED-CT Code Diagnosis ICD10 Code Diagnosis Note [id number] Arabella Joey Resendez (GANG TAILER) [address] [facility] [place] [address] 04/28/2015 15:53:24 04/28/2015 17:26:24 Venereal disease screening 597168076 Z11.3 RTO 2 weeks for results. [facility] ion care management 003558499 Z30.9 Although the patient thinks she wants the Nexplanon, she has h/o having the Nexplanon removed for emotional lability in August of 2013. She could not remember to take the pill every day. Option of the Depo shot discussed. Pt. does not want to gain weight. Option of Mirena IUD or Copper IUD discussed. Pt. will research them and return. Handouts given. [id number] Arabella Resendez (GANG TAILER) [address] [place] [address] 05/05/2015 15:38:30 05/05/2015 17:28:16 Venereal disease screening 750123162 Z11.3 STD panel was completely negative. Individual results d/w pt. [facility] ion care management 060167985 Z30.9 Pt. has decided to just use condoms for now. [id number] MD Mal Gage (Adult Med) [address] [facility] [place] [address] 05/15/2015 14:14:54 05/15/2015 15:05:33 Adult health examination 076189516 Z00.01 Mixed anxi ety and depressive disorder 325713937 F41.8 with inattentio n Try Celexa pt is trying to go to [facility] for counsellin g Administra tion of influenza vaccine 03155376 Z23 [id number] [facility] [address] [place] [address] 07/17/2015 14:24:28 07/17/2015 17:27:16 Mixed anxiety and depressive disorder 141561623 F34.1 Pt did not tolerate Celexa Try Prozac pt is trying to go to [facility] for counsellin g-did not see one yet Vomiting 206335066 R11.1 0 [id number] [facility] [address] [facility] [place] [address] 08/24/2015 14:19:41 08/24/2015 15:35:08 Mixed anxiety and depressive disorder 441788168 F34.1 Pt did not tolerate Celexa Tolerating Prozac -increase dose to 40 mg daily Pt to see counsellor [id number] [facility] [address] [facility] [place] [address] 09/01/2015 14:55:00 09/05/2015 11:46:22 Dysuria 75906234 R30.0 preg test -neg [id number] Arabella Resendez (GANG TAILER) [address] [place] [address] 09/11/2015 14:58:39 09/11/2015 15:57:40 Contraception care management 733088619 Z30.9 Benefits, risks, and alternativ es to Depo Provera shot d/w pt. Pt. expressed understand ing. All pt. questions answered. UPT was negative today. Rx Depo sent. RTO 2 weeks with medication for repeat UPT and Depo shot. [id number] Arabella Resendez (GANG TAILER) [address] [place] [address] 09/25/2015 09:35:26 09/25/2015 10:26:42 Family planning surveillance 689058047 Z30.09 Benefits, risks, and alternativ es to Depo Provera d/w pt. Pt. expressed understand ing. All pt. questions answered. Consent signed and in chart. UPT was negative two weeks ago and today. Depo Provera shot given. RTO PRN + 3 mo. for next Depo shot. [id number] Brooke Cary MD [facility] (Adult Med) [address] [facility] [place] [address] 02/02/2016 09:25:17 02/04/2016 03:48:40 Amenorrhea 46087045 N91.2 preg test -neg Upper resp iratory infection 94714977 J06.9 supportive care Increase fluid Lymphadenitis 21575340 I 88.9 R/posterio r cervical check labs [id number] [facility] ([facility] [address] [facility] [place] [address] 02/06/2016 14:24:04 02/07/2016 16:19:49 Contraception care management 216306617 Z30.9 Pt wants the pill. She believes she can remember to take it every day. Venereal d isease screening 426544431 Z11.3 STD panel was completely negative. Individual results d/w pt. [id number] [facility] [address] [facility] [place] [address] 02/12/2016 14:39:28 02/16/2016 15:43:42 Candidal vulvovaginitis 07055317 B37.3 Pt.'s vaginal culture was positive for yeast, dwp. Rx Diflucan sent to pharmacy. Instructio cherelle discussed. Contracept ion care management 972701182 Z30.9 UPT was negative 2 weeks ago and today. Pt. may start OCPs. [id number] [facility] (Adult Med) [address] [facility] [place] [address] 03/07/2016 11:48:10 03/08/2016 09:58:39 Cervical lymphadenopathy 022014452 R59.0 pt still has enlarged LN labs -ok will check CT neck [id number] Montserrat Warner APN, [employer] [facility] (Adult Med) [address] [facility] [place] [address] 10/17/2016 11:36:56 10/17/2016 14:35:33 Umbilical discharge 03826911 L08.82 topical mupirocin bid and po Bactrim bid; dwp s/s infection worsening to call or rto; pt going to [facility] and was concerned about keeping it covered. [id number] MD Mal Gage (Adult Med) [address] [place] [address] 01/27/2017 16:08:59 01/30/2017 13:44:45 Abdominal pain 70402484 R10.9 possibly gastritis Obesity 564603967 E66.9 healthy diet and exercise discussed with pt [id number] MD Mal Gage (Adult Med) [address] [facility] [place] [address] 08/21/2017 11:59:02 08/25/2017 11:38:13 Backache 041205972 M54.9 possibly muscle strainheat therapy Obesity 353270234 E66.9 healthy diet and exercise discussed with pt [id number] MD Mal Gage (Adult Med) [address] [facility] [place] [address] 10/20/2017 14:11:26 10/20/2017 14:48:21 Hypothyroidism 50028464 E03.9 continue levothyrox in 25 mcg dailypt just had labs done [id number] Arabella Resendez (GANG TAILER) [address] [place] [address] 11/03/2017 13:49:51 01/12/2018 16:45:26 Gynecologic examination 22657155 Z01.411 First pap done today. Venereal d isease screening 020345036 Z11.3 RTO one week for results. [id number] Arabella Resendez (GANG TAILER) [address] [place] [address] 11/17/2017 14:48:34 11/25/2017 12:44:35 Oral contraceptive prescribed 913203964 Z30.011 Venereal d isease screening 556044080 Z11.3 Vaginal culture was negative for gonorrhea, chlamydia, and trichomona s, dwp. STD panel was also completely negative. Individual test results dwp. Gynecologi c examination 53177328 Z01.411 Pap was negative, dwp. [id number] MD Mal Gage (Adult Med) [address] [place] [address] 06/22/2018 15:25:13 06/22/2018 16:13:42 Hypothyroidism 94602151 E03.9 continue levothyrox in 25 mcg dailypt to do lab Obesity 759828435 E66.9 healthy diet and exercise discussed with pt [id number] LEVI AMBRIZ (Adult Med) [address] [place] [address] 02/12/2019 09:05:52 02/15/2019 09:44:37 Hypothyroidism 26689497 E03.9 Hx of hypothyroi dismCurren tly takes levothyrox ine 25 mg.Patient is worried her medication is not at the right dose because experienci ng more acne, fatigue, anxiety, and trouble losing weight. 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 [id number] LEVI AMBRIZ (Adult Med) [address] [place] [address] 03/29/2019 10:05:29 03/30/2019 11:18:31 Acute sinusitis 21641809 J01.90 Complainin g of nasal congestion , [...] not or on SSRI antidepres sants. 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 [id number] LEVI AMBRIZ (Adult Med) [address] [place] [address] 10/15/2019 09:57:03 10/19/2019 11:03:38 Hypothyroidism 11415960 E03.9 Hx of hypothyroi dismRecent labs showed euthyroid on levothyrox ine 25 mg.- c/w medication Obesity 592302778 E66.9 Current weight: 230 pounds at homeLookin [...] with a friend who has a personal injury legal assistant, she is disappoint ed because she has [...] in 1 month with weight checks Acne 47028175 L70.9 Has reported a decrease in her acne after she has changed her diet, she rarely even has to use the Tretinoin cream now- continue with healthy lifestyle changes Adult [facility] th examination 290754985 Z00.00 PHQ 2 was negative in office today (1 out of 27) [id number] LEVI AMBRIZ (Adult Med) [facility] [place] [address] 12/01/2019 11:55:01 12/02/2019 13:24:22 Body mass index 30+ - obesity 495745566 Z68.41 Pt was on Contrave for 3 weeks until it caused hivesShe was happy with this medication before this happenedSh e is a little nervous about starting a [...] for her weight loss journey Allergic reaction 379090 005 T78.40XA pt was seen [facility] on 11/17 for hives that increased in size, increased pruritis, and bilateral hand edema after being on Contrave for 3 weeksShe was told to stop medication , given a steroid injection and PO steroid pills to take for the next 5 daysOn PE the pt has no hives and skin is unremarkab le- Added Contrave to her allergy list [id number] LEVI AMBRIZ (Adult Med) [address] [place] [address] 04/18/2020 08:19:50 04/18/2020 14:12:10 [id number] LEVI AMBRIZ (Adult Med) [address] [place] [address] 10/04/2020 10:44:42 10/05/2020 10:06:11 Attention deficit hyperactivity disorder 869543481 F90.9 History of hypothyroi dism, anxiety, and [...] twice daily - f/u in 1 month [id number] LEVI AMBRIZ (Adult Med) [address] [place] [address] 01/07/2022 14:44:56 01/08/2022 08:39:17 Hypothyroidism 94331749 E03.9 Pt presenting for routine hypothyroi dism f/u and med refill. Pt has been taking levothyrox ine for years and denies any adverse SE with this medication -TSH labs ordered as below; will contact pt with results and proceed accordingl y-Renew levothyrox ine 25mcg Morbid obesity 720959454 E66.01 BMI 41 today (01/07/22). Pt reports she is trying to lose weight and is being more mindful with her diet-Pt encouraged to continue healthy diet and lifestyle changes-A1 c, lipid panel, CMP, vit D, CBC labs ordered today; will contact pt with results and proceed accordingl y [id number] LEVI COLLINS [facility] [address] [place] [address] 06/13/2022 16:21:01 06/17/2022 11:29:55 Depression screening 973152316 Z13.31 PHQ 0 Allergic rhinitis 481650 04 J30.9 trial claritin due to rhinorrhea Morbid obesity 249006052 E66.01 Thoracic back pain 21631 8004 M54.6 x5 daysmost likely due to excessive coughing and worsening with taking deep breathscou ld be irritation to muscles in between ribsVSSPEx - nlreassure d ptc/w heating pad, stretching trial NSAIDs PRNf/u if sx do not improve in 1 wk, can trial short course of steroid Cough 96123733 R05.9 dryimprovi ngdoes not keep her up at nightc/w OTC meds [id number] LEVI AMBRIZ (Adult Med) [address] [place] [address] 08/19/2022 10:09:53 08/20/2022 13:54:32 Morbid obesity 294256713 E66.01 Pt reports she is trying to lose weight and is being more mindful with her diet-Pt encouraged to continue healthy diet and lifestyle changes-A1 c, lipid panel, CMP, vit D, CBC labs ordered today; will contact pt with results and proceed accordingl y Hypothyroidism 48214447 E03.9 Pt presenting for routine hypothyroi dism f/u and med refill. 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 Starts new job tomorrow. Doing well overall but has been stressful. PHQ 2/9 was negative in office today (0 out of 27) [id number] VICKIE Hernandez (GANG TAILER) [address] [place] [address] 09/30/2022 15:16:38 10/02/2022 15:01:35 Routine care 969197745 Z34.00 [id number] LEVI LEACH (GANG TAILER) [address] [place] [address] 10/22/2022 14:47:34 10/23/2022 09:05:51 Routine care 686057843 Z34.00 27yo F with h/o hypothyroi dism presenting for initial visit at 10+1 weeks. LMP 08/12/22. Denies bleeding, cramping, discharge, fevers. BSUS performed showing SIUP at 10+3 weeks, FHT present at 169. Initial labs reviewed, TSH elevated at 4.6, see below. OB education provided and SAB precaution s discussed. cfDNA drawn. RTC in 4 weeks. Obesity 181480920 E66.9 Starting BMI 44. Advised limiting weight gain to 11-20#. Consider early GTT. Frequent growth assessment s. Hypothyroidism 57022350 E03.9 Last TSH 4.6. PCP had just increased her dose of levothyrox ine prior to labs. She has been taking levo 25mcg 5 days per week and 50mcg two days per week. Will recheck labs today. Screening for malignant neoplasm of cervix 534047683 Z12.4 Pap updated today. [id number] MD Alex Yang [address] [place] [address] 12/05/2022 10:40:25 12/10/2022 09:49:47 Routine care 452523048 Z34.92 Hypothyroidism 61599079 E03.9 --Recheck TSH and T4 every 4 weeks Obesity 824378899 E66.9 [id number] MD Alex Yang [address] [place] [address] 01/27/2023 15:59:39 01/29/2023 10:42:25 Routine care 057358734 Z34.92 Hypothyroidism 93408748 E03.9 --Recheck TSH and T4 every 4 weeks Mixed anxi ety and depressive disorder 685573775 F41.8 --Declines medication at this time. Obesity 407625638 E66.9 [id number] MD Alex Yang [address] [place] [address] 02/17/2023 15:52:27 02/20/2023 14:45:33 Routine care 993994694 Z34.92 Administra tion of diphtheria, pertussis, and tetanus vaccine 243947874 Z23 Hypothyroidism 78591904 E03.9 --Recheck TSH and T4 every 4 weeks Mixed anxi ety and depressive disorder 518443885 F41.8 --Declines medication at this time. Obesity 405314404 E66.9 [id number] MD Alex Yang [address] [place] [address] 03/10/2023 15:42:27 03/12/2023 11:28:12 Routine care 858547779 Z34.92 Hypothyroidism 68335407 E03.9 --Continue levothyrox ine 25mcg daily--Rec heck TSH and T4 every 4 weeks Mixed anxi ety and depressive disorder 976831785 F41.8 --Declines medication at this time. Right uppe r quadrant pain 271733886 R10.11 Fundal hei ght high for dates 944258742 O34.487 [id number] MD Alex Yang [address] [facility] [place] [address] 03/24/2023 15:39:41 03/26/2023 12:27:03 Routine care 047574778 Z34.92 Hypothyroidism 63355601 E03.9 --Continue levothyrox ine 50mcg daily--Rec heck TSH and T4 every 4 weeks Mixed anxi ety and depressive disorder 566325641 F41.8 --Declines medication at this time. [id number] MD Alex Levi 14 OB [address] [facility] [place] [address] 04/01/2023 13:48:39 04/02/2023 10:00:22 Normal 34104784 Z34.90 [id number] MD Alex Yang 14 OB [address] [facility] [place] [address] 04/08/2023 10:50:59 04/14/2023 13:00:44 Routine care 245736552 Z34.92 Hypothyroidism 59641110 E03.9 --Continue levothyrox ine 50mcg daily--Rec heck TSH and T4 every 4 weeks Mixed anxi ety and depressive disorder 852716177 F41.8 --Declines medication at this time. [id number] TATA Pearson Alex 14 OB [address] [facility] [place] [address] 04/15/2023 16:27:36 04/17/2023 14:44:38 Hypothyroidism 68976742 E03.9 Routine an tenatal care 585711252 Z34.93 [id number] YANA Pearson 14 OB [address] [facility] [place] [address] 04/22/2023 11:29:44 04/23/2023 09:18:50 Routine care 147109937 Z34.93 [id number] MD Alex Yang 14 OB [address] [facility] [place] [address] 04/29/2023 14:40:51 04/30/2023 12:44:08 Routine care 155372448 Z34.92 Hypothyroidism 62518509 E03.9 --Continue levothyrox ine 50mcg daily Mixed anxi ety and depressive disorder 982892449 F41.8 --Declines medication at this time. Increased blood pressure 41714677 R03.0 --Sent to L&D for assessment of pre-eclamp yaneli [id number] MD Alxe Yang 14 OB [address] [facility] [place] [address] 05/09/2023 14:07:59 05/15/2023 03:47:23 [id number] MD Alex Yang [address] [place] [address] [place] [address] 05/13/2023 14:33:48 05/15/2023 03:47:23 [id number] Deana Santos LPN Alex 14 OB [address] [facility] [place] [address] 05/22/2023 14:13:49 05/24/2023 03:47:59 [id number] MD Alex Yang [address] [place] [address] [place] [address] 06/16/2023 14:17:23 06/17/2023 13:31:16 care 709059002 Z39.2 --[facility] 430923673 Z30.9 --Pt desires Nexplanon- -Will RTC for insertion Depression screening 171 647869 Z13.31 [id number] MD Alex Yang [address] [place] [address] [place] [address] 07/30/2023 14:00:08 07/31/2023 12:12:19 Insertion of subcutaneous contraceptive 941740037 Z30.46 --Pt informed that she should use a back up method for at least 7 days Morbid obesity 551141680 E66.01 Essential hypertension 78754315 I10 [id number] MD Alex Yang 14 [address] [facility] [place] [address] 10/29/2023 14:30:08 10/31/2023 09:52:14 Removal of subcutaneous contraceptive done 6066077689 20984 Z98.890 --Nexplano n removed without issue Contracept ion care management 270349179 Z30.9 --Pt desires OCP's Morbid obesity 091562645 E66.01 Health Concerns Section Related Observation LastModified by Organization Detai ls LastModified Time None Recorded Concern Status LastModified by Organization Details LastModified Time None Recorded Advance Directives Directive N: Payers Encounter Date Sequence Insurance Name Policy Number Policy Sanchez Covered Member ID Sanchez Member ID Guarantor Name 05/13/2023 1 [facility] (PPO) [id number] Nehemias Gonzalez [id number] Daniela Gonzalez 05/22/2023 1 [facility] (PPO) [id number] Nehemias Gonzalez [id number] Daniela Gonzalez 06/16/2023 1 [facility] (PPO) [id number] Nehemias Gonzalez [id number] Daniela Gonzalez 07/30/2023 1 [facility] (PPO) [id number] Nehemias Gonzalez [id number] Daniela Gonzalez 10/29/2023 1 [facility] (PPO) [id number] Nehemias Gonzalez [id number] Daniela Gonzalez Notes Date Note Type Note [...] mastitis Rik Garcia MD Attn: Accounting,[address] [place], [address], [facility] 06/16/2023 16:15:35 07/30/2023 text/html Patient presents for Nexplanon insertion. She denies any other complaints. Rik Garcia MD Attn: Accounting,[address] [place], [address], [place] [facility] 07/30/2023 15:27:24 10/29/2023 text/html Patient presents for Nexplanon removal. She desires low dose OCPs. The patient denies any other complaints. Rik Garcia MD Attn: Accounting,[address], [place], [address], [facility] 10/29/2023 19:35:16 OBGyn Episode Ob Episode Information Episode Created Date Number of Fetuses Patient Bloodtype Patient rh Status Prepregnancy Weight lbs Domestic Partner Domestic Partner Phone Father Name Records Management Coordinator Status 10/01/19 23 1 A Positive 242 Nehemias CLOSED Fetus Data First Name Last Name Admitted to NICU Weight (g) Sex Living Outcome Pediatric Complications Fetus ID Race Codes Race Delivery Type Betty Gonzalez false 2659.18 31 F true Full Term 75741 2106-3 White Problems Problem Notes yes to circumcise, try breas t feeding, yes to epidural, carpenter's helper unknown yet . PPBC not sure Problem Name Start Date End Date Resolution Snomed Code Not e Administration of diphtheria , pertussis, and tetanus vaccine 567676773 Obesity 01/27/2017 130235390 Hypothyroidism 07/14/2017 10933723 new onset Alec Calculation Initial Alec Date [...] Gestation 0 [email or web address] 10/22/2022 05/19/19 24 0 Pre-demi Flowsheet Flowsheet Date 09/30/2022 Montemayor Score Blood Edema Fundus Height Fundus Units Glucose Ketones Leukocytes Nitrite Labor Signs Protein Cervic Dilation Cervic Effacement Cervic Station Type Weight in lbs Pre/Post Dialysis Refused With clothes 240.530520417531 BP Diastolic BP Location Tested BP Systolic BP Type 98 132 sitting 72 112 sitting Fetus Heart Rate Present Fetus Movement Comments Flowsheet Date 10/22/2022 Montemayor Score Blood Edema Fundus Height Fundus Units Glucose Ketones Leukocytes Nitrite Labor Signs Protein Cervic Dilation Cervic Effacement Cervic Station 10 wks none Type Weight in lbs Pre/Post Dialysis Refused With clothes 242.017403097548 BP Diastolic BP Location Tested BP Systolic [...] in lbs Pre/Post Dialysis Refused With clothes 243.485566504669 BP Diastolic BP Location Tested BP Systolic [...] in lbs Pre/Post Dialysis Refused With clothes 225.601572477816 BP Diastolic BP Location Tested BP Systolic [...] in lbs Pre/Post Dialysis Refused With clothes 264.257438346762 BP Diastolic BP Location Tested BP Systolic [...] in lbs Pre/Post Dialysis Refused With clothes 267.418468843392 BP Diastolic BP Location Tested BP Systolic [...] RTC in 2 weeks. Flowsheet Date 03/24/2023 Omntemayor Score Blood Edema Fundus Height Fundus Units Glucose Ketones Leukocytes Nitrite Labor Signs Protein Cervic Dilation Cervic Effacement Cervic Station neg none 36 cm none large none neg Type Weight in lbs Pre/Post Dialysis Refused With clothes 274.737503157853 BP Diastolic BP Location Tested BP Systolic [...] in lbs Pre/Post Dialysis Refused With clothes 274.800039948419 BP Diastolic BP Location Tested BP Systolic BP Type 82 120 sitting Fetus Heart Rate Present A 145 Present Fetus Movement A Yes Comments Talked about carpal tunnel / ulnar tunnel challenges and the keys to immobilization of the wrist.lots of advice / strategies, splints, mayr wrap, ice, etc.active baby, no new OB issues other than the carpal tunnel. Flowsheet Date 04/08/2023 Montemayor Score Blood Edema Fundus Height Fundus Units Glucose Ketones Leukocytes Nitrite Labor Signs Protein Cervic Dilation Cervic Effacement Cervic Station trace none 37 cm none negative none neg Type Weight in lbs Pre/Post Dialysis Refused With clothes 276.362498657098 BP Diastolic BP Location Tested BP Systolic [...] in lbs Pre/Post Dialysis Refused With clothes 279.650812575183 BP Diastolic BP Location Tested BP Systolic [...] Weight in lbs Pre/Post Dialysis Refused Weight 279.594856970211 BP Diastolic BP Location Tested BP Systolic [...] in lbs Pre/Post Dialysis Refused With clothes 279.195311789348 BP Diastolic BP Location Tested BP Systolic [...] in lbs Pre/Post Dialysis Refused With clothes 253.265540897681 BP Diastolic BP Location Tested BP Systolic [...] At Estimated Date of Delivery false Thalassemia (Estonian, Slovak, Mediterranean, Or Background): MCV < 80 false Neural Tube Defect (Meningom yelocele, Spina Bifida, Or Anencephaly) false Congenital Heart Defect false Down Syndrome false Rick-Sachs (eg, Catholic, Cajun, Portuguese-Huguenot) f alse Vidhya Disease false Sickle Cell Disease Or Trait () false Hemophilia Or Other Blood Disorders false Muscular Dystrophy false Cystic Fibrosis false Perkins's Chorea false Mental Retardation/Autism false If Yes, [...] By Post Complications Tubal Sterilization Discharge Date Comments [facility] ina 38 Low Transvers e Rik Garcia MD Discharge Information Feeding Method Contraceptive Method Maternal HG B and HCT Levels Combination
--- OUTSIDE RECORDS SUMMARY | 2024-06-24 14:41 | XMS_ITS | Referral Summary ---
Author Organization [facility] Address [address] [place] [address] Care Team Providers Care Access Services Assistant Name Role Phone Shazia Rothman Primary Care Provider [phone] Allergies Active Allergy Reactions Criticality Noted Date [...] often do you attend chur ch or sabianism services? Never 05/03/2023 Do you belong to any clubs o r organizations such as sabianist groups, unions, fraternal or athletic groups, or [...] staff should administer the PHQ-9) 0 05/03/2023 [facility] - Occupational Stress [...] place to sleep or slept in a residential (including now)? No 05/03/2023 Personal Safety Answer Date Recorded Have you ever been in or are you currently in a harmful physical or emotional relationship or is someone making you feel afraid or unsafe? Denies 05/03/2023 Comments No Sex and Gender Information Value Date Recorded Sex Assigned at Not on file Legal Sex Female 3:03 PM HEARING SPECIALIST Gender Identity Not on file Sexual Orientation Not on file Last Filed Vital Signs Vital Sign Reading Time Taken Comments Blood Pressure 133/86 05/07/2023 6:40 AM HEARING SPECIALIST Pulse 95 05/07/2023 6:40 AM HEARING SPECIALIST Temperature 35.9 C (96.6 F) 05/07/2023 6:40 AM HEARING SPECIALIST Respiratory Rate 17 05/07/2023 6:40 AM HEARING SPECIALIST Oxygen Saturation 99% 05/07/2023 1:00 AM HEARING SPECIALIST Inhaled Oxygen Concentration - - Weight 126.6 kg (279 lb) 05/03/2023 7:52 PM HEARING SPECIALIST Height 160 cm (5' 3 ) 05/03/2023 7:52 PM HEARING SPECIALIST Body Mass Index 49.42 05/03/2023 7:52 PM HEARING SPECIALIST Plan of Treatment Not on file Insurance CHOICE PLUS CHOICE PLUS CHOICE PLUS Advance Directives For more information, please contact: [phone] * Full Code (Latest Code Status on [...] n case of cardiopulmonary arrest Care Teams Access Services Assistant Relationship Specialty [place] [address] [place] [address] PCP - General Physician Material Attendant 12/05/22
--- OUTSIDE RECORDS SUMMARY | 2024-06-24 14:41 | XMS_ITS | Clinical Summary ---
Author Organization [facility] Address [address] [place] [address] Care Team Providers Care Resource Management Specialist Name Role Phone Shazia Rothman Primary Care Provider [phone] Allergies Active Allergy Reactions Criticality Noted Date [...] often do you attend chur ch or mormonism services? Never 05/03/2023 Do you belong to any clubs o r organizations such as pentecostal groups, unions, fraternal or athletic groups, or [...] staff should administer the PHQ-9) 0 05/03/2023 [facility] - Occupational [...] on file Legal Sex Female 3:03 PM CABLE LACER Gender Identity Not on file Sexual Orientation [...] Comments Blood Pressure 133/86 05/07/2023 6:40 AM CABLE LACER Pulse 95 05/07/2023 6:40 AM CABLE LACER Temperature 35.9 C (96.6 F) 05/07/2023 6:40 AM CABLE LACER Respiratory Rate 17 05/07/2023 6:40 AM CABLE LACER Oxygen Saturation 99% 05/07/2023 1:00 AM CABLE LACER Inhaled Oxygen Concentration - - Weight 126.6 kg (279 lb) 05/03/2023 7:52 PM CABLE LACER Height 160 cm (5' 3 ) 05/03/2023 7:52 PM CABLE LACER Body Mass Index 49.42 05/03/2023 7:52 PM CABLE LACER Plan of Treatment Health Maintenance Due Date [...] patient's age to complete this topic Insurance [facility] CHOICE PLUS [facility] CHOICE PLUS Member Subscriber Plan / Payer ( fective 2023-Present) Name:GonzalezDaniela Relation to Subscriber:Self Name:Carlos Daniela Morataya Payer ID:[id number] (NAIC) Type:[facility] HMO/PPO Address: [address] CHOICE PLUS Advance Directives For more information, please contact: [phone] * Full Code (Latest Code Status on [...] n case of cardiopulmonary arrest Care Teams Resource Management Specialist Relationship Specialty Start Date End Date Shazia Rothman PA [address] [place] [address] PCP - General Physician Drug Abuse Technician 12/05/22
== END 2024-06-24 14:30 | disposition home or self-care (01) ==
LOC: ANHIMG 14:30
PROVIDERS: PCP Nurse Practitioner Adult Health; Visit Provider Nurse Practitioner Adult Health
DX: H53.9 Unspecified visual disturbance (principal); R51.9 Headache, unspecified
CPT/HCPCS: 70450

== ENCOUNTER 2024-11-17 19:14 | Emergency (ER) | payer BC, SELFPAY ==
[2024-11-17] VITALS (15 sets, daily range): BP systolic 116–157; BP diastolic 84–130; PULSE 72–102; RESP 12–27; TEMP 35.6; O2SAT 91–100
--- OUTSIDE RECORDS SUMMARY | 2024-11-17 19:16 | XMS_ITS | Encounter Summary ---
Author Organization [facility] Healthcare Address [address] [place] [address] Care Team Providers Care Tool Crib Lead Name Role Phone Shazia Rothman Primary Care Provider [phone] Reason for Visit * Reason Comments Dizziness [place] in [place] on Friday and received fluids and Zofran prescription and was feeling a little dizziness but then it became more constant as time has gone on. Currently vomiting. Encounter Details Date Type Department Care Team (Late st Contact Info) Description 11/17/2024 6:30 PM CDT Office Visit [facility] at [address] [address] Nicolette Landa PA [address] [place] [address] [address] [place] [address] Dizziness (Primary Dx); Nausea and vomiting, unspecified vomiting type Social History Tobacco Use Types Packs/Day Years Used Date Smoking Tobacco: Never Smokeless Tobacco: Never Alcohol Use Standard Drinks/Week Comments No 0 [...] week 05/03/2023 How often do you attend [facility] or [facility] services? Never 05/03/2023 Do you belong to [...] staff should administer the PHQ-9) 0 05/03/2023 [facility] - Occupational Stress Questionnaire Answer Date Recorded [...] place to sleep or slept in a retirement (including now)? No 05/03/2023 Personal Safety Answer Date Recorded Have you ever been in or are you currently in a harmful physical or emotional relationship or is someone making you feel afraid or unsafe? 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 Gender Identity Not on file Sexual Orientation Not on file documented as of this encounter Last Filed Vital Signs Vital Sign Reading Time Taken Comments Blood Pressure 118/89 11/17/2024 6:35 PM CDT Pulse 75 11/17/2024 6:35 PM CDT Temperature 36.7 C (98.1 F) 11/17/2024 6:35 PM CDT Respiratory Rate 20 11/17/2024 6:35 PM CDT Oxygen Saturation 99% 11/17/2024 6:35 PM CDT Inhaled Oxygen Concentration - - Weight 126.6 kg (279 lb) 11/17/2024 6:35 PM CDT Height - - Body Mass Index 49.42 05/03/2023 7:52 PM 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 Subjective/Objective Patient ID: Daniela Gonzalez is a 29 y.o. female. Chief Complaint Dizziness ([place] in [place] on Friday and received fluids and Zofran prescription and was feeling a little dizziness but then it became more constant as time has gone on. Currently vomiting. ) Pt presents w/ dizziness x 5 days. States symptoms started with N/V and slight dizziness 5 days ago. Was seen at [facility] 5 days ago, given IVF and zofran w/ short term improvement. States over the past 2 days but specifically today, the dizziness has worsened. States it has gotten so severe today with a room spinning sensation that she is unable to ambulate due to being off balance. No URI symptoms. No fever. No diarrhea. No KAPLAN, vision changes, paraesthesias. Review of Systems All systems reviewed and are negative or non contributory for this patient's presentation today other than as stated in the HPI . Physical Exam Constitutional: General: She is in acute distress (actively vomiting). HENT: Head: Normocephalic and atraumatic. Mouth/Throat: Pharynx: Oropharynx is clear. Eyes: Pupils: Pupils are equal, round, and reactive to light. Cardiovascular: Rate and Rhythm: Normal rate. Pulmonary: Effort: Pulmonary effort is normal. Musculoskeletal: General: Normal range of motion. Cervical back: Normal range of motion. Skin: General: Skin is warm and dry. Neurological: General: No focal deficit present. Mental Status: She is alert and oriented to person, place, and time. Cranial Nerves: No cranial nerve deficit. Psychiatric: Mood and Affect: Mood normal. Behavior: Behavior normal. Vitals: 11/17/24 1835 BP: 118/89 Pulse: 75 Resp: 20 Temp: 36.7 ??C (98.1 ??F) TempSrc: Oral SpO2: 99% Weight: 126.6 kg (279 lb) Assessment/Plan -pt w/ progressively worsening dizziness x 5 days, today arrives actively vomiting and has difficulty providing history due to heaving and vomiting, pt tearful on exam -describes room spinning and feels off balance, unable to ambulate due the the off balance sensation -suspect vestibular neuritis vs labyrinthitis due to severity of the vertigo and active vomiting -pt referred to ED for further evaluation and management, given 4 mg zofran odt prior to departure,her aunt is present to drive her there -vitals stable for transport, emesis bags provided Diagnoses and all orders for this visit: Dizziness (Primary) - ondansetron (ZOFRAN) tablet 4 mg Nausea and vomiting, unspecified vomiting type - ondansetron (ZOFRAN) tablet 4 mg No results found for this or any previous visit (from the past 4 hours). Disposition Treatment plan including expectations, follow up, and return precautions discussed with patient/parent, verbalizes understanding. Medication dosage, use, and potential adverse reactions discussed with patient/parent. Advised to follow up with PCP if symptoms do not resolve as expected or sooner if condition worsens. Signs/symptoms warranting ER evaluation reviewed. Patient and/or guardian was given an opportunity to ask questions, questions answered. LEVI Nagel 11/17/24 7:13 PM documented in this encounter Plan of Treatment Not on file documented as of this encounter Visit Diagnoses Diagnosis Dizziness- Primary Dizziness and giddiness Nausea and vomiting, unspecified vomiting type documented in this encounter Orders Medications Ordered That Osbaldo ht Not Have Been Administered Count Last Ordered Date First Ordered Date ondansetron (ZOFRAN) tablet 4 mg 1 11/18/19 documented in this encounter Care Teams Tool Crib Lead Relationship Specialty Start Date End Date Shazia Rothman PA [address] [place] [address] PCP - General Physician Manager Furniture 12/05/22 documented as of this encounter
--- OUTSIDE RECORDS SUMMARY | 2024-11-17 19:16 | XMS_ITS | Clinical Summary ---
Author Organization [facility] Address [address] [place] [address] Care Team Providers Care Nurse Navigator Name Role Phone Shazia Rothman Primary Care Provider [phone] Allergies Active Allergy Reactions Criticality Noted Date [...] times a day 60 tablet 3 Active Hospital, Clinic, or Other Facility Administered Medication Ordered Dose Route Frequency Start Date End Date Status ondansetron (ZOFRAN) tablet 4 mgIndications:Dizziness,[place] sea and vomiting, unspecified vomiting type 4 mg oral Once 11/17/2024 11/18/2024 Active Active Problems Problem Noted Date Diagnosed Date 38 weeks gestation of 05/01/2023 37 weeks gestation of 04/30/2023 Lymphadenopathy 05/14/2016 Overview (08/23/2016): Lymphadenopathy Acute maxillary sinusitis 10/09/2015 Overview (08/23/2016): Acute recurrent maxillary sinusitis Encounters Date Type Department Care Team Description 11/17/2024 6:30 PM CDT Office Visit [facility] Care at [address] [address] Nicolette Landa PA Dizziness (Primary Dx); Nausea and vomiting, unspecified vomiting type from Last 3 Months Medical History Medical History Date Comments Hx [...] 05/03/2023 How often do you attend chur or jew services? Never 05/03/2023 Do you belong to any clubs o r organizations such as scientology groups, unions, fraternal or athletic groups, or [...] staff should administer the PHQ-9) 0 05/03/2023 [facility] - Occupational Stress Questionnaire Answer Date Recorded [...] place to sleep or slept in a senior living (including now)? No 05/03/2023 Personal Safety Answer Date Recorded Have you ever been in or are you currently in a harmful physical or emotional relationship or is someone making you feel afraid or unsafe? 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 Gender Identity Not on file Sexual Orientation [...] Spinal N Livin g 8 9 Betty Young an, Rik hernandez MD Complications:Other (Comment ) Delivery Location:This [facility] ([facility] PROCEDURE) Last Filed [...] (279 lb) 11/17/2024 6:35 PM CDT Height 160 cm (5' 3) 05/03/2023 7:52 PM WOOD SHOP TEACHER Body Mass Index 49.42 05/03/2023 7:52 PM WOOD SHOP TEACHER Plan of Treatment Health Maintenance Due Date Last Done Comments Cervical Cancer Screening 1996 Hepatitis C Screening 1996 Regular Well Visit/Exam 18-64 2014 Covid-19 Vaccine ( season) 2024 09/25/2020, 08/18/2020 Depression Screening 05/01/2024 05/01/2023, 05/01/2023, 04/29/2023, Additional history exists Influenza Vaccine (#1) 2025 05/16/2015 DTaP/Tdap/Td Vaccine (7 - Td or Tdap) 02/17/2033 02/17/2023, 12/02/2001, 12/02/2001, Additional history exists Hepatitis B Screening Completed 03/27/1997 , 03/25/1997, 1996, Additional history exists Varicella Vaccines Completed 01/07/2007, 04/20/1999 HPV Vaccines Completed 09/09/2008, 12/23/2007 Pneumococcal vaccine <65 Aged Out No longer eligible based on patient's age to complete this topic Insurance CHOICE PLUS [employer] CHOICE [facility] CHOICE PLUS [place] [id number] Advance Directives For more information, please contact: [phone] * Full Code (Latest Code Status on [...] n case of cardiopulmonary arrest Care Teams Nurse Navigator Relationship Specialty Start Date End Date Shazia Rothman PA [address] [place] [address] PCP - General Physician Crew Leader 12/05/22
--- OUTSIDE RECORDS SUMMARY | 2024-11-17 19:16 | XMS_ITS | Data Portability ---
Author Organization [facility] Address [address] [place] [address] Care Team Providers Care Applications Specialist Name Role Phone LYSSA MEDRANO Primary Care Provider [phone] DIANE UNDERWOOD Director Hedis Assessment No assessment recorded. Plan of Treatment Reminders Order Date Submit Date Provider Last Modified By Organization Details Last Modified Time Details Appointments None record ed. Lab pregna ncy test, urine 2023 024 [email or web address] In-Office Order, Internal Use Only DO Not Attach Compendium DO Not Attach Compendium, Do Not Delete/merge, [id number] 4 15:26:59 Referral primar y care provid er referr al 2023 024 [email or web address] Not available 4 09:59:19 Procedures None record ed. Surgeries None record ed. Imaging None record ed. Medication Orders Loestr in Fe 06/07 (28-Da y) 1 mg-20 mcg (21)/7 5 mg (7) tablet 2023 024 [id number], [address], [place], [place], [id number], 4 19:34:03 Nexpla non 68 mg subder mal implan t 2023 024 [email or web address] Not available 4 16:52:44 Patient TargetsNo targets recorded. Patient Instructions Encounter Date Encounter Id Patient Instructions Last Modified By Organization Details Last Modified Time 06/16/2023 [id number] edinburgh depression scale* traci Not available 06/16/2023 16:15:30 07/30/2023 [id number] learning about high blood pressure traci Not available 07/30/2023 15:26:57 A healthy lifestyle: care instructions traci Not available 07/30/2023 15:26:57 10/29/2023 [id number] A healthy lifestyle: care instructions traci Not available 10/29/2023 19:33:57 Reason for Referral Primary Care Provider Referr al for Essential hypertension Referring Physician: Rik Garcia, BRONC BUSTER, Encounter Date: 07/30/2023 Results Created Date Observation Date Name Description Value Unit Range Abnormal Flag Note LastModifiedBy Organization Detail LastModifiedTime 04/15/2004/16/2023 TSH+F REE T4 TSH 4.100 uIU/m L 0.450- 4.500 Not Available [facility] ([facility]) [address] [facility], [place], [address], 04/16/2023 11:13:13 04/15/2004/16/2023 TSH+F REE T4 T4,free(dire ct) 0.72 NG/dL 0.82-1 .77 below low normal Not Available [facility] ([facility]) [address] [place], [address], 04/16/2023 11:13:13 04/15/2004/15/2023 urina lysis , dipst ick Leukocytes Negati ve Not Available In-Office Order Internal Use Only DO Not Attach Compendium DO Not Attach Compendium, Do Not Delete/merge, [id number] 04/15/2023 16:45:04 04/15/20 23 04/15/2023 urina lysis , dipst ick Nitrite negati ve Not Available In-Office Order Internal Use Only DO Not Attach Compendium DO Not Attach Compendium, Do Not Delete/merge, [id number] 04/15/2023 16:45:04 04/15/20 23 04/15/2023 urina lysis , dipst ick Urobilinogen .2 Not Available In-Of fice Order Internal Use Only DO Not Attach Compendium DO Not Attach Compendium, Do Not Delete/merge, [facility] 04/15/2023 16:45:04 04/15/20 23 04/15/2023 urina lysis , dipst ick Protein Negati ve Not Available In-Office Order Internal Use Only DO Not Attach Compendium DO Not Attach Compendium, Do Not Delete/merge, [facility] 04/15/2023 16:45:04 04/15/20 23 04/15/2023 urina lysis , dipst ick pH 7.0 Not Available In-Office Order Internal Use Only DO Not Attach Compendium DO Not Attach Compendium, Do Not Delete/merge, [facility] 04/15/2023 16:45:04 04/15/20 23 04/15/2023 urina lysis , dipst ick Blood Negati ve Not Available In-Office Order Internal Use Only DO Not Attach Compendium DO Not Attach Compendium, Do Not Delete/merge, [facility] 04/15/2023 16:45:04 04/15/20 23 04/15/2023 urina lysis , dipst ick Specific Magnolia 1.010 Not Available In-Off ice Order Internal Use Only DO Not Attach Compendium DO Not Attach Compendium, Do Not Delete/merge, [facility] 04/15/2023 16:45:04 04/15/20 23 04/15/2023 urina lysis , dipst ick Ketone Negati ve Not Available In-Office Order Internal Use Only DO Not Attach Compendium DO Not Attach Compendium, Do Not Delete/merge, [facility] 04/15/2023 16:45:04 04/15/20 23 04/15/2023 urina lysis , dipst ick Bilirubin Negati ve Not Available In-Office Order Internal Use Only DO Not Attach Compendium DO Not Attach Compendium, Do Not Delete/merge, [facility] 04/15/2023 16:45:04 04/15/20 23 04/15/2023 urina lysis , dipst ick Glucose Negati ve Not Available In-Office Order Internal Use Only DO Not Attach Compendium DO Not Attach Compendium, Do Not Delete/merge, [id number] 04/15/2023 16:45:04 04/15/20 23 04/15/2023 urina lysis , dipst ick Appearance Clear Not Available In-Offi ce Order Internal Use Only DO Not Attach Compendium DO Not Attach Compendium, Do Not Delete/merge, [id number] 04/15/2023 16:45:04 04/15/20 23 04/15/2023 urina lysis , dipst ick Color Pale Yellow Not Available In-Office Order Internal Use Only DO Not Attach Compendium DO Not Attach Compendium, Do Not Delete/merge, [id number] 04/15/2023 16:45:04 04/22/20 23 04/23/2023 RPR, RFX QN RPR/C ONFIR M TP RPR Non Reacti ve nonrea ctive Not Available [facility] ([facility]) [address] [place], [address], 04/23/2023 07:13:13 04/22/20 23 04/23/2023 HIV AB/P2 4 AG WITH REFLE X HIV Ab/P24 Ag screen Non Reacti ve nonrea ctive HIV Negat [place] HIV-1 /HIV- 2 antib odies and HIV-1 p24 antig en were NOT detec omid. There is no labor atory evide nce of HIV infec tion. Not Available [facility] ([facility]) [address] [place], [address], 04/23/2023 07:13:14 04/22/20 23 04/24/2023 CT, NG, TRICH VAG BY HUBER chlamydia by HUBER Negati ve negati ve Not Available [facility] ([facility]) [address] [place], [address], 04/24/2023 16:13:04 04/22/20 23 04/24/2023 CT, NG, TRICH VAG BY HUBER gonococcus by HUBER Negati ve negati ve Not Available [facility] ([facility]) [address] [place], [address], 04/24/2023 16:13:04 04/22/20 23 04/24/2023 CT, NG, TRICH VAG BY HUBER trich vag by HUBER Negati ve negati ve Not Available [facility] ([facility]) [address] [facility], [place], [address], 04/24/2023 16:13:04 04/22/20 23 04/24/2023 STREP GP B HUBER strep gp B HUBER Negati ve negati ve [facility] and [facility] [place] [place] and [facility] can Congr ess of Obste trici ans and Gynec ologi sts ([facility] ) guide lines for preve ntion of perin atal group B strep tococ yanet (GBS) disea se speci fy co-co llect ion of a vagin al and recta l swab speci men to maxim ize sensi tivit y of GBS detec tion. Per the [facility] [place] and [facility], swabb ing both the lower [...] n is noted . Not Available [facility] ([facility]) [address] [facility], [place], [address], 04/24/2023 16:13:05 04/22/20 23 04/22/2023 urina lysis , dipst ick Leukocytes Negati ve Not Available In-Office Order Internal Use Only DO Not Attach Compendium DO Not Attach Compendium, Do Not Delete/merge, [id number] 04/22/2023 11:37:03 04/22/20 23 04/22/2023 urina lysis , dipst ick Nitrite negati ve Not Available In-Office Order Internal Use Only DO Not Attach Compendium DO Not Attach Compendium, Do Not Delete/merge, [facility] 04/22/2023 11:37:03 04/22/20 23 04/22/2023 urina lysis , dipst ick Urobilinogen .2 Not Available In-Of fice Order Internal Use Only DO Not Attach Compendium DO Not Attach Compendium, Do Not Delete/merge, [facility] 04/22/2023 11:37:03 04/22/20 23 04/22/2023 urina lysis , dipst ick Protein 30 Not Available In-Office Order Internal Use Only DO Not Attach Compendium DO Not Attach Compendium, Do Not Delete/merge, [facility] 04/22/2023 11:37:03 04/22/20 23 04/22/2023 urina lysis , dipst ick pH 7.0 Not Available In-Office Order Internal Use Only DO Not Attach Compendium DO Not Attach Compendium, Do Not Delete/merge, [facility] 04/22/2023 11:37:03 04/22/20 23 04/22/2023 urina lysis , dipst ick Blood Negati ve Not Available In-Office Order Internal Use Only DO Not Attach Compendium DO Not Attach Compendium, Do Not Delete/merge, [id number] 04/22/2023 11:37:03 04/22/20 23 04/22/2023 urina lysis , dipst ick Specific Magnolia 1.015 Not Available In-Off ice Order Internal Use Only DO Not Attach Compendium DO Not Attach Compendium, Do Not Delete/merge, [facility] 04/22/2023 11:37:03 04/22/20 23 04/22/2023 urina lysis , dipst ick Ketone Negati ve Not Available In-Office Order Internal Use Only DO Not Attach Compendium DO Not Attach Compendium, Do Not Delete/merge, [facility] 04/22/2023 11:37:03 04/22/20 23 04/22/2023 urina lysis , dipst ick Bilirubin Negati ve Not Available In-Office Order Internal Use Only DO Not Attach Compendium DO Not Attach Compendium, Do Not Delete/merge, [id number] 04/22/2023 11:37:03 04/22/20 23 04/22/2023 urina lysis , dipst ick Glucose Negati ve Not Available In-Office Order Internal Use Only DO Not Attach Compendium DO Not Attach Compendium, Do Not Delete/merge, [id number] 04/22/2023 11:37:03 04/29/20 23 04/29/2023 urina lysis , dipst ick Leukocytes Trace Not Available In-Offi ce Order Internal Use Only DO Not Attach Compendium DO Not Attach Compendium, Do Not Delete/merge, [id number] 04/29/2023 15:00:17 04/29/20 23 04/29/2023 urina lysis , dipst ick Nitrite negati ve Not Available In-Office Order Internal Use Only DO Not Attach Compendium DO Not Attach Compendium, Do Not Delete/merge, [id number] 04/29/2023 15:00:17 04/29/20 23 04/29/2023 urina lysis , dipst ick Urobilinogen .2 Not Available In-Of fice Order Internal Use Only DO Not Attach Compendium DO Not Attach Compendium, Do Not Delete/merge, [id number] 04/29/2023 15:00:17 04/29/20 23 04/29/2023 urina lysis , dipst ick Protein Negati ve Not Available In-Office Order Internal Use Only DO Not Attach Compendium DO Not Attach Compendium, Do Not Delete/merge, [id number] 04/29/2023 15:00:17 04/29/20 23 04/29/2023 urina lysis , dipst ick pH 7.0 Not Available In-Office Order Internal Use Only DO Not Attach Compendium DO Not Attach Compendium, Do Not Delete/merge, [id number] 04/29/2023 15:00:17 04/29/20 23 04/29/2023 urina lysis , dipst ick Blood Negati ve Not Available In-Office Order Internal Use Only DO Not Attach Compendium DO Not Attach Compendium, Do Not Delete/merge, [id number] 04/29/2023 15:00:17 04/29/20 23 04/29/2023 urina lysis , dipst ick Specific Magnolia 1.015 Not Available In-Off ice Order Internal Use Only DO Not Attach Compendium DO Not Attach Compendium, Do Not Delete/merge, [facility] 04/29/2023 15:00:17 04/29/20 23 04/29/2023 urina lysis , dipst ick Ketone Negati ve Not Available In-Office Order Internal Use Only DO Not Attach Compendium DO Not Attach Compendium, Do Not Delete/merge, [facility] 04/29/2023 15:00:17 04/29/20 23 04/29/2023 urina lysis , dipst ick Bilirubin Negati ve Not Available In-Office Order Internal Use Only DO Not Attach Compendium DO Not Attach Compendium, Do Not Delete/merge, [facility] 04/29/2023 15:00:17 04/29/20 23 04/29/2023 urina lysis , dipst ick Glucose Negati ve Not Available In-Office Order Internal Use Only DO Not Attach Compendium DO Not Attach Compendium, Do Not Delete/merge, [facility] 04/29/2023 15:00:17 04/29/20 23 04/29/2023 urina lysis , dipst ick Appearance Clear Not Available In-Offi ce Order Internal Use Only DO Not Attach Compendium DO Not Attach Compendium, Do Not Delete/merge, [facility] 04/29/2023 15:00:17 04/29/20 23 04/29/2023 urina lysis , dipst ick Color Pale Yellow Not Available In-Office Order Internal Use Only DO Not Attach Compendium DO Not Attach Compendium, Do Not Delete/merge, [facility] 04/29/2023 15:00:17 06/16/19 24 06/16/2023 edinb urgh postn atal depre ssion scale * Score 4 Not Available In-Office Order Internal Use Only DO Not Attach Compendium DO Not Attach Compendium, Do Not Delete/merge, [id number] 06/16/2023 16:15:19 07/30/19 24 07/30/2023 pregn eleanor test, urine HCG negati ve Not Available In-Office Order Internal Use Only DO Not Attach Compendium DO Not Attach Compendium, Do Not Delete/merge, [id number] 07/30/2023 14:38:38 Result Notes None recorded. 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 SHERYL [place], [place] - [facility] 4 14:31:26 Pregnanc y 63888022 Completed 202206/16/2023 SHERYL [place], [place] - [facility] 4 14:31:30 Hypothyr oidism 39989979 Completed 2017 new [place] [facility] 4 14:31:26 Obesity 854242552 Completed 2016 SHERY[place], [place] [facility] 4 14:31:26 Administ ration of diphther ia, pertussi s, and tetanus vaccine Completed SHERY[place], [place] [facility] 4 14:31:26 Mixed anxiety and depressi ve disorder 806669652 Active feeling fine without med Brooke Cary MD Attn: Nevaeh rose,[address] [place], [address], [place] [facility] 8 12:35:22 Vomiting 147742241 Completed 01/27/2017 Brooke Cary MD Attn: Nevaeh rose,[address] [place], [address], [place] [facility] 7 16:27:41 Dysuria 37934167 Completed 03/29/2019 LEVI AMBRIZ Attn: Nevaeh rose,[address] [place], [address], [place] [facility] 9 10:15:10 Amenorrh ea 30222726 Completed 03/29/2019 LEVI AMBRIZ Attn: Nevaeh rose,[address] [place], [address], [place] [facility] 9 10:14:14 Upper respirat ory infectio n 16770080 Completed 01/27/2017 Brooke Cary MD Attn: Nevaeh rose,[address] [facility], [place], [address], [place] [facility] 7 16:27:44 Lymphade nitis 80464727 Completed 04/08/2016 Brooke Cary MD Attn: Nevaeh rose,[address] [facility], [place], [address], [place] [facility] 6 12:17:53 Liver function tests outside referenc e range 261158077 Active fatty liver on CT abdomen on 02/02 Brooke Cary MD Attn: Nevaeh rose,[address] [facility], [place], [address], [facility] - [facility] 7 14:06:49 Candidal vulvovag initis 50574708 Completed 03/29/2019 LEVI AMBRIZ Attn: Nevaeh rose,[address] [facility], [place], [address], [place] - [facility] 9 10:15:07 Lymphade nopathy 58905566 Active 2015 CT neck showed 3 significa ntly enlarged nodes -seeing hematolog ist/ Dr.Woodso narda Cary MD Attn: Nevaeh rose,[address] [facility], [place], [address], [place] [facility] 7 15:28:23 Umbilica l discharg e 86667212 Completed 201601/27/2017 Brooke Cary MD Attn: Nevaeh rose,[address] [facility], [place], [address], [place] [facility] 7 16:27:51 Obesity 022387234 Active 2016 Fiona laboy MA null, [place] - [facility] 4 14:31:26 Problem Notes None recorded. Procedures Surgical History Date Name Laterality Status Provider Name and Address Organization Details Recorded Time 4 Control Implant Removal completed Rik Garcia MD Attn: Accounting,[address], [place], [address], [place] [facility] 10/29/2023 19:31:27 4 Control Implant Insertion completed Rik Garcia MD Attn: Accounting,[address], [place], [address], [place] [facility] 07/30/2023 15:24:09 3 Suture/Staple [...] Name and Address Organization Details Recorded Time 297339 Contrave medicatio n hives severe Not available 12/01/2019 66707 69 RxNorm Madeline Hahn MA null, [place] - [facility] 0 12:09:38 Medications Name Sig Start Date Stop Date [...] e 50 mcg/actua tion nasal spray,k[employer] [place] 1 spray every day by intranas al [...] Available Not Available Not Available Metamucil Fiber (aspartam e) 3.4 gram oral powder packet Take 1 [...] Available Not Available Not Available Bella 0.25 mg-0.035 mg tablet TAKE 1 TABLET BY MOUTH [...] 157.48 cm 140 mm[Hg] 82 mm[Hg] Deana Santos LPN [place] - [facility] 05/22/2023 14:21:49 Date Recorded Body height Body mass index (BMI) Body weight Heart rate Systolic blood pressure Diastolic blood pressure Provider Name and Address Organization Details Last Updated DateTime 157.48 cm 46.3 kg/m2 526014. 004973 g 80 /min 117 mm[Hg] 83 mm[Hg] Fiona Thompsoniqra laboy MA [facility] 4 14:30:09 Date Recorded Body height Body mass index (BMI) Body weight Systolic blood pressure Diastolic blood pressure Provider Name and Address Organization Details Last Updated DateTime 07/30/2023 157.48 cm 46.8 kg/m2 833544.9 3 g 158 mm[Hg] 88 mm[Hg] Essence Martinez MA [facility] 14:36:55 Date Recorded Body height Body mass index (BMI) Body weight Systolic blood pressure Diastolic blood pressure Provider Name and Address Organization Details Last Updated DateTime 10/29/2023 157.48 cm 41.9 kg/m2 939006.0 8 g 125 mm[Hg] 93 mm[Hg] Essence Martinez MA [facility] 4 14:52:04 Date Recorded Body height Systolic blood pressure Diastolic blood pressure Provider Name and Address Organization Details Last Updated DateTime 05/13/2023 157.48 cm 134 mm[Hg] 100 mm[Hg] Deana Santos LPN [facility] 05/13/2023 15:05:40 Social History Question Answer Notes LastModified by Organizat ion Details LastModified Time Tobacco Smoking Status [facility]2015 16:22:22 Do You Have An Advance Directive? No Information n ot available 10/29/2023 Is Blood Transfusion Acceptable In An Emergency? Yes Information not available 04/28/2015 What Is Your Level Of Caffeine Consumption? Moderate [email or web address] Information not available 04/28/2015 How Much Tobacco Do You Chew? None Information not available 04/28/2015 In The 14 Days Before Symptom Onset, Have You Had Close Contact With A Laboratory-confirm ed COVID-19 While That Case Was Ill? No Information n ot available 10/04/2020 In The 14 Days Before Symptom Onset, Have You Had Close Contact With A Person Who Is Under Investigation For COVID-19 While That Person Was Ill? No Information not available 10/04/2020 Have You Been To An Area Known To Be High Risk For COVID-19? No Information not available 10/04/2020 What Type Of Diet Are You Following? REGULAR Information n ot available 04/28/2015 Which Illicit Or Recreational Drugs Have You Used? No Information not available 04/28/2015 Education 12 Information no t available 04/28/2015 What Is The Highest Grade Or Level Of School You Have Completed Or The Highest Degree You Have Received? [id number] Information not available 10/29/2023 Have There Been Any Changes To Your Family Or Social Situation? No Information no t available 10/29/2023 Live Alone Or With Others? With Others Information not available 04/28/2015 Marital Status Single Informatio n not available 01/27/2017 What Was The Date Of Your Most Recent Tobacco Screening? 10/29/2023 Information not available 10/29/2023 How Many Children Do You Have? 0 Information not available 04/28/2015 Performs Monthly Self-breast Exam? Yes Information no t available 11/03/2017 Do You Have Any Pets? [...] You Passively Exposed To Smoke? No Information no t available 09/30/2022 How Much Tobacco Do You Smoke? No Information not available 12/01/2019 General Stress Level Low Information not available 09/25/2015 Do You Use Sunscreen Routinely? Yes Information not available 04/28/2015 Has Tobacco Cessation Counseling Been Provided? No Information not available 01/07/2022 On What Date Was Tobacco Cessation Counseling Provided? 10/29/2023 Information not available 10/29/2023 Have You Used IV Drugs? No Information not available 10/29/2023 Sex: Female Functional Status Question Answer Note LastModified by Organizat ion Details LastModified Time Do you use any illicit or recreational drugs? Yes 10/22/22 pt states stopped marijuana c positive test, [id number] Information not available 10/22/2022 Do you or have you ever used any other forms of tobacco or nicotine? No Information not available 10/22/2022 What is your level of alcohol consumption? None [email or web address] Information not available 06/13/2022 Do you or have you ever used smokeless tobacco? Never used smokeless tobacco Information not available 12/01/2019 Are you currently employed? 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 Never used electronic cigarettes Information not available 12/01/2019 What is your exercise level? Occasional Information not available 04/28/2015 Mental Status Question Answer Note LastModified by Organization D etails LastModified Time Do you feel stressed (tense, restless, nervous, or anxious, or unable to sleep at night)? [id number] Information not available 10/29/2023 Family History Relationship Description Onset Age of [...] N Atrial Fibrillation N Breast Cancer N Lung Disease N [...] Skin Problems N Anemia N Heart Attack ([place]) N Diabetes N Ovarian Cancer N Blood [...] [facility] 10/04/2020 11:38:08 Hib, unspecified formulation 7 [place], [place] [facility] 10/04/2020 11:38:31 Hib, unspecified formulation 7 shaista Hahn [place], [place] [facility] 10/04/2020 11:38:40 Hib, unspecified formulation 7 [place] [facility] 10/04/2020 11:38:58 Hib, unspecified formulation 9 completed Madeline Hahn [place] [facility] 10/04/2020 11:39:08 Hep A, unspecified formulation 6 completed Madeline Hahn [place], [place] - [...] [facility] 10/04/2020 11:41:34 MMR 2 completed Madeline Jov[place]ERYL [place] [facility] 10/04/2020 11:41:46 meningococcal [...] [facility] 10/04/2020 11:43:07 varicella 9 completed Madeline Jovani [place] [facility] 10/04/2020 11:43:29 varicella 7 completed Madeline Hahn [place] [facility] 10/04/2020 11:43:38 SARS-COV-2 (COVID-19) vaccine, UNSPECIFIED 1 completed Madeline [place] [facility] 10/04/2020 11:44:03 SARS-COV-2 (COVID-19) vaccine, UNSPECIFIED 1 completed Madeline [place] [facility] 10/04/2020 11:44:10 Tdap 3 completed Rik Garcia MD Attn: Accounting,[address] [facility], [place], [address], [place] [facility] 02/17/2023 21:06:34 Influenza, split virus, quadrivalent, preservative 5 completed Not Available [facility] 06/05/2019 02:39:16 Past Encounters Encounter ID Performer Location Encounter Start Date Encounter Closed Date Diagnosis/Indication Diagnosis SNOMED-CT Code Diagnosis ICD10 Code Diagnosis Note [id number] MD Jessica Zaldivarhalto ([facility]ON[facility] BUSTER) [address] [place] [address] 04/28/2015 15:53:24 04/28/2015 17:26:24 Venereal disease screening 868633217 Z11.3 RTO 2 weeks for results. Contracept ion care management 092335450 Z30.9 Although the patient thinks she wants the Nexplanon, she has h/o having the Nexplanon removed for emotional lability in August of 2013. She could not remember to take the pill every day. Option of the Depo shot discussed. Pt. does not want to gain weight. Option of Mirena IUD or Copper IUD discussed. Pt. will research them and return. Handouts given. [id number] [facility] [address] [place] [address] 05/05/2015 15:38:30 05/05/2015 17:28:16 Venereal disease screening 140280960 Z11.3 STD panel was completely negative. Individual results d/w pt. Contracept ion care management 981122034 Z30.9 Pt. has decided to just use condoms for now. [id number] MD Mal Gage (Adult Med) [address] [place] [address] 05/15/2015 14:14:54 05/15/2015 15:05:33 Adult health examination 438048403 Z00.01 Mixed anxi ety and depressive disorder 419634649 F41.8 with inattentio n Try Celexa pt is trying to go to [facility] for counsellin g Administra tion of influenza vaccine 97802261 Z23 [id number] Brooke Cary MD [facility] (Adult Med) [address] [place] [address] 07/17/2015 14:24:28 07/17/2015 17:27:16 Mixed anxiety and depressive disorder 978119052 F34.1 Pt did not tolerate Celexa Try Prozac pt is trying to go to [facility] for counsellin g-did not see one yet Vomiting 049373371 R11.1 0 [id number] Brooke Cary MD [facility] (Adult Med) [address] [place] [address] 08/24/2015 14:19:41 08/24/2015 15:35:08 Mixed anxiety and depressive disorder 005671215 F34.1 Pt did not tolerate Celexa Tolerating Prozac -increase dose to 40 mg daily Pt to see counsellor [id number] Brooke Cary MD [facility] (Adult Med) [address] [place] [address] 09/01/2015 14:55:00 09/05/2015 11:46:22 Dysuria 35373893 R30.0 preg test -neg [id number] [facility] [address] [place], [place] [address] 09/11/2015 14:58:39 09/11/2015 15:57:40 Contraception care management 428475942 Z30.9 Benefits, risks, and alternativ es to Depo Provera shot d/w pt. Pt. expressed understand ing. All pt. questions answered. UPT was negative today. Rx Depo sent. RTO 2 weeks with medication for repeat UPT and Depo shot. [id number] [facility] [address] [place] [address] 09/25/2015 09:35:26 09/25/2015 10:26:42 Family planning surveillance 746737006 Z30.09 Benefits, risks, and alternativ es to Depo Provera d/w pt. Pt. expressed understand ing. All pt. questions answered. Consent signed and in chart. UPT was negative two weeks ago and today. Depo Provera shot given. RTO PRN + 3 mo. for next Depo shot. [id number] [facility] [address] [place] [address] 02/02/2016 09:25:17 02/04/2016 03:48:40 Amenorrhea 61396905 N91.2 preg test -neg Upper resp iratory infection 15438750 J06.9 supportive care Increase fluid Lymphadenitis 38291504 I 88.9 R/posterio r cervical check labs [id number] [facility] [address] [place] [address] 02/06/2016 14:24:04 02/07/2016 16:19:49 Contraception care management 564158542 Z30.9 Pt wants the pill. She believes she can remember to take it every day. Venereal d isease screening 058305730 Z11.3 STD panel was completely negative. Individual results d/w pt. [id number] MD [facility] [address] [place] [address] 02/12/2016 14:39:28 02/16/2016 15:43:42 Candidal vulvovaginitis 37063211 B37.3 Pt.'s vaginal culture was positive for yeast, dwp. Rx Diflucan sent to pharmacy. Kelly villarreal discussed. Contracept ion care management 677573819 Z30.9 UPT was negative 2 weeks ago and today. Pt. may start OCPs. [id number] [facility] [address] [place] [address] 03/07/2016 11:48:10 03/08/2016 09:58:39 Cervical lymphadenopathy 468564669 R59.0 pt still has enlarged LN labs -ok will check CT neck [id number] Montserrat Warner APN, INSTRUMENT INSPECTOR-C [facility] (Adult Med) [address] [place] [address] 10/17/2016 11:36:56 10/17/2016 14:35:33 Umbilical discharge 84898850 L08.82 topical mupirocin bid and po Bactrim bid; dwp s/s infection worsening to call or rto; pt going to [place] and was concerned about keeping it covered. [id number] [facility] [address] [place] [address] 01/27/2017 16:08:59 01/30/2017 13:44:45 Abdominal pain 83036611 R10.9 possibly gastritis Obesity 876340238 E66.9 healthy diet and exercise discussed with pt [id number] [facility] [address] [place] [address] 08/21/2017 11:59:02 08/25/2017 11:38:13 Backache 874124237 M54.9 possibly muscle strainheat therapy Obesity 112810854 E66.9 healthy diet and exercise discussed with pt [id number] MD [facility] [address] [place] [place] [address] 10/20/2017 14:11:26 10/20/2017 14:48:21 Hypothyroidism 69759181 E03.9 continue levothyrox in 25 mcg dailypt just had labs done [id number] MD Jessica Zaldivarhalto ([facility]) [address] [place] [place] [address] 11/03/2017 13:49:51 01/12/2018 16:45:26 Gynecologic examination 01434154 Z01.411 First pap done today. Venereal d isease screening 636819741 Z11.3 RTO one week for results. [id number] MD Mal Zaldivar ([facility]) [address] [place] [address] 11/17/2017 14:48:34 11/25/2017 12:44:35 Oral contraceptive prescribed 497963224 Z30.011 Venereal d isease screening 394117389 Z11.3 Vaginal culture was negative for gonorrhea, chlamydia, and trichomona s, dwp. STD panel was also completely negative. Individual test results dwp. Gynecologi c examination 74602516 Z01.411 Pap was negative, dwp. [id number] MD Mal Gage (Adult Med) [address] [place] [address] 06/22/2018 15:25:13 06/22/2018 16:13:42 Hypothyroidism 78984592 E03.9 continue levothyrox in 25 mcg dailypt to do lab Obesity 563894272 E66.9 healthy diet and exercise discussed with pt [id number] [facility] (Adult Med) [address] [place] [address] 02/12/2019 09:05:52 02/15/2019 09:44:37 Hypothyroidism 07786991 E03.9 Hx of hypothyroi dismCurren tly takes levothyrox ine 25 mg.Patient is worried her medication is not at the right dose because experienci ng more acne, fatigue, anxiety, and trouble losing weight. 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 [id number] [facility] (Adult Med) [address] [place] [address] 03/29/2019 10:05:29 03/30/2019 11:18:31 Acute sinusitis 50870918 J01.90 Complainin g of nasal congestion , [...] not or on SSRI antidepres sants. 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 [id number] [facility] (Adult Med) [address] [place] [address] 10/15/2019 09:57:03 10/19/2019 11:03:38 Hypothyroidism 80896674 E03.9 Hx of hypothyroi dismRecent labs showed euthyroid on levothyrox ine 25 mg.- c/w medication Obesity 512590828 E66.9 Current weight: 230 pounds at homeLookin g at weights from the office since 2014: steady increase from 170 to 230 poundsBMI > 40She remembers developing a habit of emotional eating and overeating her senior year of high school, I was a thin cheerleade r and then over the years I have just continued to gain weight.On ce COVID hit 2-3 months ago, she realized she needed to change her lifestyle. Her diet now consists of salad, turkey burgers, chicken, veggies, and water. Some days she eats normally and other days she will overeat to the point of her stomach hurting.Sh ludy has also been trying to be more active, she has been doing cardio workouts (including walking and weight lifting) x 1 hour daily, she has been working out with a friend who has a certified personal chef, she is disappoint ed because she has [...] in 1 month with weight checks Acne 13890077 L70.9 Has reported a decrease in her acne after she has changed her diet, she rarely even has to use the Tretinoin cream now- continue with healthy lifestyle changes Adult heal th examination 011525584 Z00.00 PHQ 06/27 was negative in office today (1 out of 27) [id number] [facility] (Adult Med) [address] [place] [address] 12/01/2019 11:55:01 12/02/2019 13:24:22 Body mass index 30+ - obesity 082529582 Z68.41 Pt was on Contrave for 3 [...] for her weight loss journey Allergic reaction 442111 005 T78.40XA pt was seen at [facility] on 11/17 for hives that increased in size, increased pruritis, and bilateral hand edema after being on Contrave for 3 weeksShe was told to stop medication , given a steroid injection and PO steroid pills to take for the next 5 daysOn PE the pt has no hives and skin is unremarkab le- Added Contrave to her allergy list [id number] [facility] (Adult Med) [address] [place] [address] 04/18/2020 08:19:50 04/18/2020 14:12:10 [id number] [facility] (Adult Med) [address] [place] [address] 10/04/2020 10:44:42 10/05/2020 10:06:11 Attention deficit hyperactivity disorder 017882394 F90.9 History of hypothyroi dism, anxiety, and [...] twice daily - f/u in 1 month [id number] [facility] (Adult Med) [facility] [place] [address] 01/07/2022 14:44:56 01/08/2022 08:39:17 Hypothyroidism 86873423 E03.9 Pt presenting for routine hypothyroi dism f/u and med refill. Pt has been taking levothyrox ine for years and denies any adverse SE with this medication -TSH labs ordered as below; will contact pt with results and proceed accordingl y-Renew levothyrox ine 25mcg Morbid obesity 053596633 E66.01 BMI 41 today (01/07/22). Pt reports she is trying to lose weight and is being more mindful with her diet-Pt encouraged to continue healthy diet and lifestyle changes-A1 c, lipid panel, CMP, vit D, CBC labs ordered today; will contact pt with results and proceed accordingl y [id number] Salazar laboy MD On license of [facility] [address] [place] [address] 06/13/2022 16:21:01 06/17/2022 11:29:55 Depression screening 929963970 Z13.31 PHQ 0 Allergic rhinitis 282506 04 J30.9 trial claritin due to rhinorrhea Morbid obesity 740003403 E66.01 Thoracic back pain 11857 8004 M54.6 x5 daysmost likely due to excessive coughing and worsening with taking deep breathscou ld be irritation to muscles in between ribsVSSPEx - nlreassure d ptc/w heating pad, stretching trial NSAIDs PRNf/u if sx do not improve in 1 wk, can trial short course of steroid Cough 33608265 R05.9 dryimprovi ngerin not keep her up at nightc/w OTC meds [id number] [facility] (Adult Med) [address] [place] [address] 08/19/2022 10:09:53 08/20/2022 13:54:32 Morbid obesity 860418278 E66.01 Pt reports she is trying to lose weight and is being more mindful with her diet-Pt encouraged to continue healthy diet and lifestyle changes-A1 c, lipid panel, CMP, vit D, CBC labs ordered today; will contact pt with results and proceed accordingl y Hypothyroidism 27731640 E03.9 Pt presenting for routine hypothyroi dism f/u and med refill. 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 Starts new job tomorrow. Doing well overall but has been stressful. PHQ 2/9 was negative in office today (0 out of 27) [id number] [facility] ([facility]) [address] [place] [address] 09/30/2022 15:16:38 10/02/2022 15:01:35 Routine care 146271583 Z34.00 [id number] [facility] ([facility]) [address] [place] [address] 10/22/2022 14:47:34 10/23/2022 09:05:51 Routine care 670571163 Z34.00 27yo F with h/o hypothyroi dism presenting for initial visit at 10+1 weeks. LMP 08/12/22. Denies bleeding, cramping, discharge, fevers. BSUS performed showing SIUP at 10+3 weeks, FHT present at 169. Initial labs reviewed, TSH elevated at 4.6, see below. OB education provided and SAB precaution s discussed. cfDNA drawn. RTC in 4 weeks. Obesity 503326088 E66.9 Starting BMI 44. Advised limiting weight gain to 11-20#. Consider early GTT. Frequent growth assessment s. Hypothyroidism 30115614 E03.9 Last TSH 4.6. PCP had just increased her dose of levothyrox ine prior to labs. She has been taking levo 25mcg 5 days per week and 50mcg two days per week. Will recheck labs today. Screening for malignant neoplasm of cervix 551896156 Z12.4 Pap updated today. [id number] MD Alex Yang [address] [place] [address] Dr [address] [place] [address] 12/05/2022 10:40:25 12/10/2022 09:49:47 Routine care 190726750 Z34.92 Hypothyroidism 62502945 E03.9 --Recheck TSH and T4 every 4 weeks Obesity 287903990 E66.9 [id number] MD Alex Yang [address] [place] [address] 01/27/2023 15:59:39 01/29/2023 10:42:25 Routine care 629098962 Z34.92 Hypothyroidism 00451922 E03.9 --Recheck TSH and T4 every 4 weeks Mixed anxi ety and depressive disorder 479075257 F41.8 --Declines medication at this time. Obesity 363911028 E66.9 [id number] MD Alex Yang [address] [place] [address] 02/17/2023 15:52:27 02/20/2023 14:45:33 Routine care 907161377 Z34.92 Administra tion of diphtheria, pertussis, and tetanus vaccine 166864510 Z23 Hypothyroidism 92146660 E03.9 --Recheck TSH and T4 every 4 weeks Mixed anxi ety and depressive disorder 351732510 F41.8 --Declines medication at this time. Obesity 537814308 E66.9 [id number] MD Alex Yang [address] [place] [address] 03/10/2023 15:42:27 03/12/2023 11:28:12 Routine care 548159007 Z34.92 Hypothyroidism 44841126 E03.9 --Continue levothyrox ine 25mcg daily--Rec heck TSH and T4 every 4 weeks Mixed anxi ety and depressive disorder 142515199 F41.8 --Declines medication at this time. Right uppe r quadrant pain 840121590 R10.11 Fundal hei ght high for dates 283072344 O34.743 [id number] MD Alex Yang [address] [place] [address] 03/24/2023 15:39:41 03/26/2023 12:27:03 Routine care 555072693 Z34.92 Hypothyroidism 01816872 E03.9 --Continue levothyrox ine 50mcg daily--Rec heck TSH and T4 every 4 weeks Mixed anxi ety and depressive disorder 364993570 F41.8 --Declines medication at this time. [id number] MD Alex Levi [address] [place] [address] 04/01/2023 13:48:39 04/02/2023 10:00:22 Normal 33129473 Z34.90 [id number] MD Alex Yang [address] [place] [address] 04/08/2023 10:50:59 04/14/2023 13:00:44 Routine care 812248674 Z34.92 Hypothyroidism 25170165 E03.9 --Continue levothyrox ine 50mcg daily--Rec heck TSH and T4 every 4 weeks Mixed anxi ety and depressive disorder 669125179 F41.8 --Declines medication at this time. [id number] Haylie Castro INSTRUMENT INSPECTOR- Alex [address] [place] [address] [place] [address] 04/15/2023 16:27:36 04/17/2023 14:44:38 Hypothyroidism 23391517 E03.9 Routine an tenatal care 986162941 Z34.93 [id number] Haylie Castro [facility] Alex 14 OB [address] [facility] [place] [address] 04/22/2023 11:29:44 04/23/2023 09:18:50 Routine care 270822287 Z34.93 [id number] MD Alex Yang 14 OB [address] [facility] [place] [address] 04/29/2023 14:40:51 04/30/2023 12:44:08 Routine care 951296471 Z34.92 Hypothyroidism 72162548 E03.9 --Continue levothyrox ine 50mcg daily Mixed anxi ety and depressive disorder 669975641 F41.8 --Declines medication at this time. Increased blood pressure 56634967 R03.0 --Sent to L&D for assessment of pre-eclamp yaneli [id number] MD Alex Yang 14 OB [address] [facility] [place] [address] 05/09/2023 14:07:59 05/15/2023 03:47:23 [id number] MD Alex Yang [address] [place] [address] [place] [address] 05/13/2023 14:33:48 05/15/2023 03:47:23 [id number] MD Alex Yang [address] [place] [address] [place] [address] 05/22/2023 14:13:49 05/24/2023 03:47:59 [id number] MD Alex Yang 14 OB [address] [facility] [place] [address] 06/16/2023 14:17:23 06/17/2023 13:31:16 care 810310155 Z39.2 --Pt doing well Contracept ion care management 142261216 Z30.9 --Pt desires Nexplanon- -Will RTC for insertion Depression screening 171 948814 Z13.31 [id number] MD Alex Yang 14 OB [address] [facility] [place] [address] 07/30/2023 14:00:08 07/31/2023 12:12:19 Implantation of subcutaneous contraceptive 447421069 Z30.46 --Pt informed that she should use a back up method for at least 7 days Morbid obesity 387663353 E66.01 Essential hypertension 98256612 I10 [id number] MD Alex Yang 14 OB [address] [facility] [place] [address] 10/29/2023 14:30:08 10/31/2023 09:52:14 Removal of subcutaneous contraceptive done 8085695242 23744 Z98.890 --Nexplano n [facility] 677091091 Z30.9 --Pt desires OCP's Morbid obesity 486152836 E66.01 Health Concerns Section Related Observation LastModified by Organization Detai ls LastModified Time None Recorded Concern Status LastModified by Organization Details LastModified Time None Recorded Advance Directives Directive N: Payers Insurance Date Sequence Insurance Name Policy Number Policy Sanchez Covered Member ID Sanchez Member ID Guarantor Name 11/21/2022 1 [facility] Daniela Matos [id number] Daniela Gonzalez 07/04/2021 SLIDING FEE SCHEDULE - DISCOUNT Daniela Gonzalez 10/04/2020 SLIDING FEE SCHEDULE - DISCOUNT Daniela Gonzalez 01/07/2022 1 *SELF PAY* brandyn Gonzalez 03/29/2024 1 [place] Daniela Matos [id number] Daniela Gonzalez 12/20/2022 1 [facility] (MEDICAID HMO) [id number] Daniela Matos [id number] Daniela Gonzalez 11/21/2022 2 [facility] - DOS ON OR AFTER 20 (MEDICAID REPLACEMENT - HMO) Daniela Matos [id number] Daniela Gonzalez 10/29/[address] [facility] (O) [id number] Nehemias Gonzalez [id number] Daniela Gonzalez 04/01/[address] [facility] [id number] Daniela Matos [id number] Daniela Gonzalez 10/22/2022 2 MEDICAID - [facility] - PENDING [id number] Daniela Gonzalez 04/29/2023 SLIDING FEE SCHEDULE - DISCOUNT Daniela Gonzalez 11/21/2022 1 [employer] [id number] Daniela Matos [id number] Daniela Gonzalez 10/22/2022 SLIDING FEE SCHEDULE - DISCOUNT Daniela Gonzalez 10/22/2022 1 *SELF PAY* brandyn Carlos Notes Date Note Type Note Provider Name [...] mastitis Rik Garcia MD Attn: Accounting,[address] [place], [address], [facility] 06/16/2023 16:15:35 07/30/2023 text/html Patient presents for Nexplanon insertion. She denies any other complaints. Rik Garcia MD Attn: Accounting[address] [place], [address], [facility] 07/30/2023 15:27:24 10/29/2023 text/html Patient presents for Nexplanon removal. She desires low dose OCPs. The patient denies any other complaints. Rik Garcia MD Attn: Accounting[address] [place], [address], [facility] 10/29/2023 19:35:16 OBGyn Episode Ob Episode Information Episode Created Date Number of Fetuses Patient Bloodtype Patient rh Status Prepregnancy Weight lbs Domestic Partner Domestic Partner Phone Father Name Pond Sawyer Status 10/01/19 23 1 A Positive 242 Nehemias CLOSED Fetus Data First Name Last Name Admitted to NICU Weight (g) Sex Living Outcome Pediatric Complications Fetus ID Race Codes Race Delivery Type Betty Gonzalez false 2659.18 31 F true Full Term 75925 2106-3 White Problems Problem Notes yes to circumcise, try breas t feeding, yes to epidural, airplane engineer unknown yet . PPBC not sure Problem Name Start Date End Date Resolution Snomed Code Not e Administration of diphtheria , pertussis, and tetanus vaccine 660578314 Obesity 01/27/2017 113724889 Hypothyroidism 07/14/2017 53388825 new onset Alec Calculation Initial Alec Date [...] in lbs Pre/Post Dialysis Refused With clothes 240.739721717258 BP Diastolic BP Location Tested BP Systolic BP Type 98 132 sitting 72 112 sitting Fetus Heart Rate Present Fetus Movement Comments Flowsheet Date 10/22/2022 Montemayor Score Blood Edema Fundus Height Fundus Units Glucose Ketones Leukocytes Nitrite Labor Signs Protein Cervic Dilation Cervic Effacement Cervic Station 10 wks none Type Weight in lbs Pre/Post Dialysis Refused With clothes 242.616103843473 BP Diastolic BP Location Tested BP Systolic [...] in lbs Pre/Post Dialysis Refused With clothes 243.048334476102 BP Diastolic BP Location Tested BP Systolic [...] in lbs Pre/Post Dialysis Refused With clothes 225.350977396771 BP Diastolic BP Location Tested BP Systolic [...] in lbs Pre/Post Dialysis Refused With clothes 264.382188352994 BP Diastolic BP Location Tested BP Systolic [...] in lbs Pre/Post Dialysis Refused With clothes 267.426199622480 BP Diastolic BP Location Tested BP Systolic [...] in lbs Pre/Post Dialysis Refused With clothes 274.047613426143 BP Diastolic BP Location Tested BP Systolic [...] in lbs Pre/Post Dialysis Refused With clothes 274.430389298945 BP Diastolic BP Location Tested BP Systolic [...] in lbs Pre/Post Dialysis Refused With clothes 276.586284091969 BP Diastolic BP Location Tested BP Systolic [...] in lbs Pre/Post Dialysis Refused With clothes 279.227457685032 BP Diastolic BP Location Tested BP Systolic [...] Weight in lbs Pre/Post Dialysis Refused Weight 279.674516070012 BP Diastolic BP Location Tested BP Systolic [...] in lbs Pre/Post Dialysis Refused With clothes 279.659983679657 BP Diastolic BP Location Tested BP Systolic [...] in lbs Pre/Post Dialysis Refused With clothes 253.239696253355 BP Diastolic BP Location Tested BP Systolic [...] At Estimated Date of Delivery false Thalassemia (Marshallese, Estonian, Mediterranean, Or Background): MCV < 80 false Neural Tube Defect (Meningom yelocele, Spina Bifida, Or Anencephaly) false Congenital Heart Defect false Down Syndrome false Rick-Sachs (eg, Caodaism, Cajun, Nigerien-Stonington) f alse Vidhya Disease false Sickle Cell Disease Or Trait () false Hemophilia Or Other Blood Disorders false Muscular Dystrophy false Cystic Fibrosis false Meddybemps's Chorea false Mental Retardation/Autism false If Yes, [...] Post Complications Tubal Sterilization Discharge Date Comments 3 [facility] inal 38 Low Transvers e Rik Garcia MD Discharge Information Feeding Method Contraceptive Method Maternal HG B and HCT Levels Combination
--- OUTSIDE RECORDS SUMMARY | 2024-11-17 19:16 | XMS_ITS | Encounter Summary ---
Author Organization [facility] Address [address] [place] [address] Care Team Providers Care Heatset Winder Operator Name Role Phone Unavailable Primary Care Provider Unavailabl e Encounter Details Date Type Department Care Team (Late st Contact Info) Description 11/16/2024 External Device Data [place] ABSTRACTION Provider, Abstract NO ADDRESS ON FILE Social History Tobacco Use Types Packs/Day Years Used Date Smoking Tobacco: Never Assessed Comments Unknown Sex and Gender Information Value Date Recorded Sex Assigned at Not on file Legal Sex Female 1:46 PM CDT Gender Identity Not on file Sexual Orientation Not on file documented as of this encounter Plan of Treatment Not on file documented as of this encounter Visit Diagnoses Not on filedocumented in this encounter
--- OUTSIDE RECORDS SUMMARY | 2024-11-17 19:16 | XMS_ITS | Clinical Summary ---
Author Organization [facility] Address [address] [place] [address] Care Team Providers Care Unit Aide Tech Name Role Phone Unavailable Primary Care Provider Unavailabl e Encounters Date Type Department Care Team Description 11/16/2024 External Device Data STL ABSTRACTION Provider, Abstract 11/03/2024 External Device Data STL ABSTRACTION Provider, Abstract 10/07/2024 External Device Data STL ABSTRACTION Provider, Abstract 10/06/2024 External Device Data STL ABSTRACTION Provider, Abstract 10/06/2024 External Device Data STL ABSTRACTION Provider, Abstract 10/06/2024 External Device Data STL ABSTRACTION Provider, Abstract 10/05/2024 External Device Data STL ABSTRACTION Provider, Abstract 10/05/2024 Telephone [facility] Plastic Surgery at the [facility] [address] [place] [address] Provider, Abstract reschedule appointment (Calling to reschedule appointment that was canceled. ) 09/30/2024 Telephone [facility] Plastic Surgery at the [place] [address] [place] [address] Provider, Abstract Wants Appointment from Last 3 Months Social History Tobacco Use Types Packs/Day Years Used Date Smoking Tobacco: Never Assessed Comments Unknown Sex and Gender Information Value Date Recorded Sex Assigned at Not on file Legal Sex Female 1:46 PM CDT Gender Identity Not on file Sexual Orientation Not on file Plan of Treatment Health Maintenance Due Date Last Done Comments DTAP/TDAP/TD VACCINES (1 - Tdap) 2015 HEPATITIS B VACCINES (1 of 3 - 19+ 3-dose series) 2015 CERVICAL CANCER SCREENING 2017 HPV/Cotest (21-29) 2017 PAP SMEAR 2017 INFLUENZA VACCINE (#1) 2024 HPV VACCINES Aged Out No longer eligi ble based on patient's age to complete this topic Insurance BLUE ACCESS CHOICE
--- OUTSIDE RECORDS SUMMARY | 2024-11-17 19:16 | XMS_ITS | Referral Summary ---
Author Organization [facility] Address [address] [place] [address] Care Team Providers Care Automatic Machine Attendant Name Role Phone Shazia Rothman Primary Care Provider [phone] Encounters Date Type Department Care Team Description 11/17/2024 6:30 PM CDT Office Visit [facility] Medical Group Convenient Care at [address] [address] Nicolette Landa PA Dizziness (Primary Dx); Nausea and vomiting, unspecified vomiting type from Last 3 Months Allergies Active Allergy Reactions Criticality Noted Date [...] often do you attend chur ch or adventist services? Never 05/03/2023 Do you belong to any clubs o r organizations such as anabaptist groups, unions, fraternal or athletic groups, or [...] staff should administer the PHQ-9) 0 05/03/2023 [facility] of Occupat ional [facility] - Occupational Stress Questionnaire Answer Date Recorded [...] place to sleep or slept in a usp (including now)? No 05/03/2023 Personal Safety Answer Date Recorded Have you ever been in or are you currently in a harmful physical or emotional relationship or is someone making you feel afraid or unsafe? Denies 05/03/2023 Comments Unknown Sex and Gender Information Value Date Recorded Sex Assigned at Not on file Legal Sex Female 3:03 PM POLICE INVESTIGATOR Gender Identity Not on file Sexual Orientation [...] 160 cm (5' 3) 05/03/2023 7:52 PM POLICE INVESTIGATOR Body Mass Index 49.42 05/03/2023 7:52 PM POLICE INVESTIGATOR Plan of Treatment Not on file Insurance CHOICE PLUS [employer] ACCESS CHOICE [facility] CHO[facility] PL[facility] Advance Directives For more information, please contact: [phone] * Full Code (Latest Code Status on [...] n case of cardiopulmonary arrest Care Teams Automatic Machine Attendant Relationship Specialty Start Date End Date Shazia Rothman PA [address] [place] [id number] PCP - General Physician Paving Plant Operator 12/05/22
--- NOTE | 2024-11-17 19:30 | ECG_ITS ---
Test Date: 2024-11-17 19:39:11 Measurements Intervals [place] Rate: 84 P: 54 MS: 159 QRS: 10 QRSD: 79 T: 29 QT: 357 QTc: 423 Interpretive Statements SINUS RHYTHM No previous ECG available for comparison Electronically Signed On 11-18-2024 16:37:42 CDT by Keny Tsai
--- NOTE | 2024-11-17 19:39 | ED_ITS ---
HPI - Dizziness General Chief Complaint: Dizziness Stated Complaint: dizziness Time Seen by Provider: 11/17/24 19:27 History of Present Illness HPI Narrative: 29-year-old female presenting to the emergency department with nauseousness, vomiting, room spinning sensations and vertigo. She states her symptoms started on the weekend she went to urgent care with mild symptoms and they did fluids and laboratory studies and sent her home. They treated to a viral illness. She states she has had some worsening vertiginous symptoms leading to more nausea and vomiting. She is able to tolerate oral intake but states that the room is spinning and she feels like she has on a boat. Denies any alcohol intake any drug use. Denies any cardiac history of chance of . No urinary infection symptoms. No trauma to the head or neck. She was otherwise in her normal state of health. No fever, chills or anybody around her with 6 symptoms. She has tried some Zofran at home without any relief of her nausea. No ringing in the ears, no loss of hearing or vision changes. No chest pain difficulty in breathing. Related Data Allergies Allergy/AdvReac Type Severity Reaction Status Date / Time Contrave Allergy Unknown Unknown Uncoded 11/17/24 20:38 Review of Systems 2 Review of Systems: As reviewed above in HPI [facility] Family History Family History Father Asthma Depression Heart disease Mother Diabetes mellitus Grandparent History of ETOH abuse Social History Social History Smoking status: Never smoker Alcohol intake: never Substance use type: does not use Lack of Transportation: No Lack of Food: Never True Current Housing: I Have Housing Concerned About Future Housing: No Difficulty Paying Gas/Electric Bills: No Difficulty Paying for Meds: No Currently Unemployed: No Education: High School Diploma/GED Difficulty w/ Childcare or Family Care: No Living arrangements: with family Gender identity (if verbalized by the patient): Female Agree to blood products: Yes Exam 2 Narrative: GENERAL: Uncomfortable appearing with some slight diaphoresis but answering questions appropriate HEAD: [Normocephalic, atraumatic.] EYES: [PERRLA and EOMI.] ENT: Nares clear, no rhinorrhea or epistaxis. Mucous membranes moist. NECK: Supple. CHEST: [Clear to auscultation. No respiratory distress.] HEART: [Regular rate and rhythm]. No murmur heard. [Normal peripheral pulses.] ABDOMEN: [Soft, nondistended], [nontender], [No rigidity or guarding] EXTREMITIES: Normal range of motion. [No edema.] SKIN: Warm, dry, no rash. NEURO: Subjective vertigo, no focal deficits full strength and sensation throughout both arms and legs. No nystagmus or ataxia. Alert oriented x3. PSYCH: [Normal mood and affect.] Course Vital Signs Vital signs: Vital Signs Temperature 35.6 C L 11/17/24 19:17 Pulse Rate 102 H 11/17/24 19:17 Respiratory Rate 20 11/17/24 19:17 Blood Pressure 157/130 H 11/17/24 19:17 Pulse Oximetry 100 11/17/24 19:17 Oxygen Delivery Room Air 11/17/24 19:17 Temperature 35.6 C L 11/17/24 19:17 Pulse Rate 79 11/17/24 21:01 Respiratory Rate 13 11/17/24 21:01 Blood Pressure 120/90 11/17/24 21:01 Pulse Oximetry 100 11/17/24 21:01 Oxygen Delivery Room Air 11/17/24 19:17 MDM - Dizziness MDM Narrative Medical decision making narrative: 29-year-old female presenting to the emergency department with nauseousness, vomiting, room spinning sensations and vertigo. She states her symptoms started on the weekend she went to urgent care with mild symptoms and they did fluids and laboratory studies and sent her home. They treated to a viral illness. She states she has had some worsening vertiginous symptoms leading to more nausea and vomiting. She is able to tolerate oral intake but states that the room is spinning and she feels like she has on a boat. Denies any alcohol intake any drug use. Denies any cardiac history of chance of . No urinary infection symptoms. No trauma to the head or neck. She was otherwise in her normal state of health. No fever, chills or anybody around her with 6 symptoms. She has tried some Zofran at home without any relief of her nausea. No ringing in the ears, no loss of hearing or vision changes. Patient appears uncomfortable but not any acute distress not ill appearing. She is slightly tachycardic with a pulse of 102, normal respiratory rate and oxygen saturation and she is afebrile. Blood pressure slightly elevated but likely not contributing to the vertigo. Her symptoms sound like vertigo is the source of her nausea and vomiting and most likely benign and peripheral nature given the profound symptoms with sudden-onset. No trauma or injury, no present suspicions for central source of her symptoms given her lack of risk factors and age. Denies chance of . Workup was ordered including electrolytes, CBC, CMP, magnesium, urinalysis and EKG. She was given meclizine and Valium for vertigo and a L of fluids and re-evaluated. Placed on monitor worker. Patient had significant improvement with symptoms after medications. She was ambulatory in a straight line and no longer feeling dizzy or vertiginous. Nausea controlled after some Zofran. Laboratory studies revealed a slight leukocytosis of 11.7, normal hemoglobin, platelets of 378. Electrolytes are largely unremarkable. Normal renal function, normal glucose, normal LFTs. Negative test. Urinalysis has white blood cells, 4+ bacteria and leukocyte esterase consistent with urinary infection. There is some contaminants from the cells and culture was sent bed discussed this with the patient and given her symptoms including nauseousness and vertigo this could be triggered by potential urinary infection so we treated this with Keflex and she will be sent home with a 5 day course including symptom controlling meclizine and Zofran as needed. She felt comfortable this plan and safe for discharge in given return precautions and PCP follow-up instructions. Medical Records Attestation: I reviewed the patient's medical records. Lab Data Attestation: I reviewed the patient's lab results. 11/17/24 19:44 11/17/24 19:44 Labs: Lab Results 11/17/24 11/17/24 Range/Units 19:44 20:42 WBC 11.7 H (4.5-10.0) K/mm3 RBC 4.39 (4.2-5.4) M/mm3 Hgb 12.1 (12.0-15.0) g/dL Hct 36.9 L (37.0-47.0) % MCV 84.1 (80-100) fl MCH 27.6 (26-34) pg MCHC 32.8 (32-36) g/dl RDW 13.1 (11.5-14.5) % Plt Count 378 H (150-375) k/mm3 MPV 9.3 (7.4-10.4) fl Immature Gran % (Auto) 0.4 (0-0.5) % Neut % (Auto) 67.3 (45.5-73.1) % Lymph % (Auto) 24.7 (18.3-44.2) % Glasscock % (Auto) 6.2 (2.6-8.5) % Eos % (Auto) 0.8 (0-4.4) % Baso % (Auto) 0.6 (0.2-1.2) % Lymph # (Auto) 2.89 (0.9-3.2) K/mm3 Glasscock # (Auto) 0.7 H (0.1-0.6) K/mm3 Eos # (Auto) 0.1 (0-0.3) K/mm3 Baso # (Auto) 0.1 (0.0-0.1) K/mm3 Abs Immat Gran (auto) 0.05 H (0.00-0.031) K/mm3 Absolute Neuts (auto) 7.9 H (1.3-6.7) K/mm3 Absolute Nucleated RBC 0.000 (0.0-0.012) K/mm3 Nucleated RBC % 0.0 (0.0-0.2) % Sodium 138 (137-145) mmol/L Potassium 3.8 (3.4-5.0) mmol/L Chloride 107 (98-107) mmol/L Carbon Dioxide 17 L (22-30) mmol/L Anion Gap 14 H (4-12) mmol/L BUN 14 (7-17) mg/dL Creatinine 0.83 (0.7-1.0) mg/dL Estim Creat Clear Calc 95 ml/min Estimated GFR > 60 (59 - ) Glucose 116 H (65-110) mg/dL Calcium 9.9 (8.4-10.2) mg/dL Magnesium 1.9 (1.6-2.3) mg/dL Total Bilirubin 0.4 (0.2-1.3) mg/dL AST 32 (14-36) U/L ALT 41 H (6-35) U/L Alkaline Phosphatase 57 (38-126) U/L Total Protein 8.6 H (6.3-8.2) g/dL Albumin 4.8 (3.5-5.1) g/dL Serum HCG, Qual Negative Urine Color Yellow (Yellow) Urine Appearance Turbid H (Clear) Urine pH 8.5 (5.0-9.0) Ur Specific [place] 1.017 (1.001-1.035) Urine Protein 1+ H (Negative) mg/dL Urine Glucose (UA) Negative (Negative) mg/dL Urine Ketones 3+ H (Negative) mg/dL Ur Blood (Man) Negative (Negative) Urine Nitrate Negative (Negative) Urine Bilirubin Negative (Negative) Urine Urobilinogen 1.0 (<2.0) mg/dL Leukocyte Esterase Rfl 1+ H (Negative) SOLOMON/UL Urine RBC 0-2 (0-2) /hpf Urine WBC 11-20 H (0-3) /hpf Ur Squamous Epith Cells Many H (Few) /hpf Urine Bacteria 4+ H /hpf Urine Casts 0-2 Discharge Plan Discharge Clinical Impression: Acute onset of severe vertigo, Urinary tract infection Patient Disposition: Still a Patient Condition: Stable Instructions: Urinary Tract Infection in Women (DC), Vertigo (ED) Additional Instructions: Your laboratory studies show a urinary infection, otherwise no acute concerning findings. Your symptoms could be secondary to the infection or possibly a separate issue but symptoms got better with treatment plan here. We will start you on antibiotics and symptom controlling medications for the dizziness and nausea to take at home. If you have any worsening symptoms, new concerns or any other issues please follow-up with your regular doctor or return to the ER with any emergent concerns. Patient Language: Emirati Prescriptions: New meclizine 25 mg tablet 25 mg PO TID PRN (Reason: dizziness) 10 Days Qty: 30 0RF cephalexin 500 mg capsule 500 mg PO Q12H 5 Days Qty: 10 0RF ondansetron 4 mg tablet,disintegrating 4 mg PO Q8H PRN (Reason: nausea and vomiting) Qty: 15 0RF No Action levothyroxine 50 mcg tablet See Rx Instructions .ROUTE .COMPLEX Qty: 90 0RF Dose Instruction: TAKE 1 TABLET BY MOUTH EVERY DAY Rx Instructions: TAKE 1 TABLET BY MOUTH EVERY DAY Follow-up/Referrals: Mell Trejo APRN [Primary Care Provider] - Time of Disposition: 21:41
--- OUTSIDE RECORDS SUMMARY | 2024-11-17 19:43 | XMS_ITS | Referral Summary ---
Author Organization [facility] Address [address] [place] [address] Care Team Providers Care Adult Specialist Name Role Phone Shazia Rothman Primary Care Provider [phone] Encounters Date Type Department Care Team Description 11/17/2024 6:30 PM CDT Office Visit [facility] Medical Group Convenient Care at [address] [address] Nicolette Landa PA Dizziness (Primary [...] vomiting type 4 mg oral Once 11/17/2024 11/17/2024 Ended Active Problems Problem Noted Date Diagnosed Date [...] often do you attend chur ch or judaism services? Never 05/03/2023 Do you belong to any clubs o r organizations such as mandaeism groups, unions, fraternal or athletic groups, or [...] staff should administer the PHQ-9) 0 05/03/2023 [facility] of Occupat ional [facility] - Occupational Stress Questionnaire Answer Date [...] place to sleep or slept in a half-way (including now)? No 05/03/2023 Personal Safety Answer Date Recorded Have you ever been in or are you currently in a harmful physical or emotional relationship or is someone making you feel afraid or unsafe? Denies 05/03/2023 Comments Unknown Sex and Gender Information Value Date Recorded Sex Assigned at Not on file Legal Sex Female 3:03 PM SHOWROOM SALESPERSON Gender Identity Not on file Sexual Orientation [...] 160 cm (5' 3) 05/03/2023 7:52 PM SHOWROOM SALESPERSON Body Mass Index 49.42 05/03/2023 7:52 PM SHOWROOM SALESPERSON Plan of Treatment Not on file Insurance CHOICE PLUS [facility] H[facility]/PPO Address: [place] [address] [employer] ACCESS CHOICE [facility] CHOICE PLUS [facility] H[facility]PP[facility] Address: [address] [address] [place] [address] Advance Directives For more information, please contact: [phone] * Full Code (Latest Code Status on [...] n case of cardiopulmonary arrest Care Teams Adult Specialist Relationship Specialty Start Date End Date Shazia Rothman PA [address] [place] [address] PCP - General Physician Material Crew Supervisor 12/05/22
--- OUTSIDE RECORDS SUMMARY | 2024-11-17 19:43 | XMS_ITS | Encounter Summary ---
Author Organization [facility] Address [address] [place] [address] Care Team Providers Care Program Director Cable Television Name Role Phone Unavailable Primary Care Provider [...]
--- OUTSIDE RECORDS SUMMARY | 2024-11-17 19:43 | XMS_ITS | Clinical Summary ---
Author Organization [facility] Address [address] [place] [address] Care Team Providers Care Ware Carrier Name Role Phone Unavailable Primary Care Provider [...] Data STL ABSTRACTION Provider, Abstract 10/05/2024 Telephone [facility] Plastic Surgery at the [facility] [address] [facility] [place] [address] Provider, Abstract reschedule appointment (Calling to reschedule appointment that was canceled. ) 09/30/2024 Telephone [facility] Plastic Surgery at the [place] [address] [facility] [place] [address] Provider, Abstract Wants Appointment from Last 3 [...]
--- OUTSIDE RECORDS SUMMARY | 2024-11-17 19:43 | XMS_ITS | Clinical Summary ---
Author Organization [facility] Address [address] [place] [address] Care Team Providers Care Business Services Coordinator Name Role Phone Shazia Rothman Primary Care Provider [phone] Allergies Active Allergy Reactions Criticality Noted Date [...] 11/17/2024 6:30 PM CDT Office Visit [facility] Medical Group [facility] Care at [address] [address] Nicolette Landa PA Dizziness (Primary [...] How often do you attend chur or adventism services? Never 05/03/2023 Do you belong to any clubs o r organizations such as yazidi groups, unions, fraternal or athletic groups, or [...] staff should administer the PHQ-9) 0 05/03/2023 [facility] - Occupational Stress Questionnaire Answer Date Recorded [...] place to sleep or slept in a fdc (including now)? No 05/03/2023 Personal Safety Answer Date Recorded Have you ever been in or are you currently in a harmful physical or emotional relationship or is someone making you feel afraid or unsafe? Denies 05/03/2023 Comments Unknown Sex and Gender Information Value Date Recorded Sex Assigned at Not on file Legal Sex Female 3:03 PM ASSOCIATE PROFESSOR OF GEOGRAPHY Gender Identity Not on file Sexual Orientation [...] hernandez MD Complications:Other (Comment ) Delivery Location:This [facility] ([facility] L AND D PROCEDURE) Last Filed [...] 160 cm (5' 3) 05/03/2023 7:52 PM ASSOCIATE PROFESSOR OF GEOGRAPHY Body Mass Index 49.42 05/03/2023 7:52 PM ASSOCIATE PROFESSOR OF GEOGRAPHY Plan of Treatment Health Maintenance Due Date [...] to complete this topic Insurance CHOICE PLUS [employer] CHOICE [facility] CHOICE PLUS [place] [id number] Advance Directives For more information, please contact: [phone] * Full Code (Latest Code Status on [...] n case of cardiopulmonary arrest Care Teams Business Services Coordinator Relationship Specialty Start Date End Date Shazia Rothman PA [address] [place] [address] PCP - General Physician Firer Glost Kiln 12/05/22
--- OUTSIDE RECORDS SUMMARY | 2024-11-17 19:43 | XMS_ITS | Encounter Summary ---
Author Organization [facility] Healthcare Address [address] [place] [address] Care Team Providers Care Research Librarian Name Role Phone Shazia Rothman Primary Care Provider [phone] Reason for Visit * Reason Comments Dizziness [facility] in [place] on Friday and received fluids and Zofran prescription and was feeling a little dizziness but then it became more constant as time has gone on. Currently vomiting. Encounter Details Date Type Department Care Team (Late st Contact Info) Description 11/17/2024 6:30 PM CDT Office Visit [facility] Medical Group Convenient Care at [address] [address] Nicolette Landa PA [address] [place] [address] [address] [place] [address] Dizziness (Primary Dx); Nausea and [...] week 05/03/2023 How often do you attend [facility] or latter day services? Never 05/03/2023 Do you belong to any clubs o r organizations such as buddhism groups, unions, fraternal or athletic groups, or [...] staff should administer the PHQ-9) 0 05/03/2023 [facility] of Occupat ional [facility] - Occupational Stress Questionnaire Answer Date [...] place to sleep or slept in a alf (including now)? No 05/03/2023 Personal Safety Answer Date Recorded Have you ever been in or are you currently in a harmful physical or emotional relationship or is someone making you feel afraid or unsafe? Denies 05/03/2023 Comments Unknown Sex and Gender Information Value Date Recorded Sex Assigned at Not on file Legal Sex Female 3:03 PM SEISMOGRAPHER Gender Identity Not on file Sexual Orientation [...] Body Mass Index 49.42 05/03/2023 7:52 PM SEISMOGRAPHER documented in this encounter Progress Notes * Nicolette Landa PA - 11/17/2024 6:30 PM CDT Images from the original note were not included. Subjective/Objective Patient ID: Daniela Gonzalez is a 29 y.o. female. Chief Complaint Dizziness ([facility] in [place] on Friday and received fluids and Zofran prescription and was feeling a little dizziness but then it became more constant as time has gone on. Currently vomiting. ) Pt presents w/ dizziness x 5 days. States symptoms started with N/V and slight dizziness 5 days ago. Was seen at [facility] 5 days ago, given IVF and zofran [...] unspecified vomiting type documented in this encounter Administered Medications Inactive Administered Medications - up to 3 most recent administrations Medication Order MAR Action Action Date Dose Rate Site ondansetron (ZOFRAN) tablet 4 mg 4 mg, oral, Once, On Fri11/17/24 at 1945, For 1 doseIndications:Dizziness,Nausea and vomiting, unspecified vomiting type Given 11/17/2024 7:15 PM CDT 4 mg documented in this encounter Orders Medications Ordered That Osbaldo ht Not Have Been Administered Count Last Ordered Date First Ordered Date ondansetron (ZOFRAN) tablet 4 mg 1 11/18/19 documented in this encounter Care Teams Research Librarian Relationship Specialty Start Date End Date Shazia Rothman PA [address] [place] [address] PCP - General Physician Fuel Cell Systems Engineer 12/05/22 documented as of this encounter
[2024-11-17] MEDS: diazePAM INJ (*CRX) 10 MG/2 ML SYRINGE 2.5 MG IV PUSH (19:54)
[2024-11-17] MEDS: LACTATED RINGERS 1,000 ML 999 ML IV CONT ×2 (19:55→20:30)
[2024-11-17 19:56] LABS: Hematocrit 36.9 % (37.0-47.0); Hemoglobin 12.1 g/dL (12.0-15.0); Immature Granulocyte Percent A 0.4 % (0-0.5); Lymphocytes Absolute Auto 2.89 K/mm3 (0.9-3.2); Mean Corpuscular HGB Conc 32.8 g/dl (32-36); Mean Corpuscular Hemoglobin 27.6 pg (26-34); Mean Corpuscular Volume 84.1 fl (80-100); Nucleated Red Blood Cells Absolute Auto 0.000 K/mm3 (0.0-0.012); Nucleated Red Blood Cells Perc 0.0 % (0.0-0.2); Platelet Count Result 378 k/mm3 (150-375); Red Blood Count 4.39 M/mm3 (4.2-5.4); White Blood Count 11.7 K/mm3 (4.5-10.0)
[2024-11-17 20:06] LABS: SPREG INTERNAL CONTROL Positive; Serum Qual hCG Negative
[2024-11-17 20:07] LABS: Alanine Aminotransferase 41 U/L (6-35); Albumin Level 4.8 g/dL (3.5-5.1); Alkaline Phosphatase 57 U/L (38-126); Anion Gap 14 mmol/L (4-12); Aspartate Amino Transferase 32 U/L (14-36); Bilirubin,Total 0.4 mg/dL (0.2-1.3); Blood Urea Nitrogen 14 mg/dL (7-17); Calcium 9.9 mg/dL (8.4-10.2); Carbon Dioxide 17 mmol/L (22-30); Chloride 107 mmol/L (98-107); Estimated CRCL calculation 95 ml/min; Estimated Glomerular Filt Rate > 60; Glucose 116 mg/dL (65-110); Magnesium 1.9 mg/dL (1.6-2.3); Potassium 3.8 mmol/L (3.4-5.0); Sodium 138 mmol/L (137-145); Total Protein 8.6 g/dL (6.3-8.2)
[2024-11-17] MEDS: MECLIZINE HCL 25 MG TABLET PO (20:24)
[2024-11-17] MEDS: ONDANSETRON INJ 4 MG/2 ML VIAL IV PUSH (20:47)
--- NOTE | 2024-11-17 20:48 | PC.NURSE ---
Pt ambulatory to [facility] for UA. Reports minimal dizziness, but endorses nausea.
[2024-11-17 20:52] LABS: Add Urine Microscopic? YES; Appearance Urine Turbid (Clear); Glucose Urine UA Negative (Negative); Leukocyte Esterase Ur 1+ LEU/UL (Negative); Nitrate Urine Negative (Negative); Non Pathogenic Casts 0-2; Specific Grav Ur 1.017 (1.001-1.035)
[2024-11-17] MEDS: CEPHALEXIN 500 MG CAPSULE PO (21:55)
== END 2024-11-17 22:00 | disposition home or self-care (01) ==
PROVIDERS: Emergency Provider Student in an Organized Health Care Education/Training Program; PCP Nurse Practitioner Adult Health
DX: N39.0 Urinary tract infection, site not specified (principal); R42 Dizziness and giddiness
CPT/HCPCS: 36415; 80053; 81001; 83735; 84703; 85025; 93005; 96361; 96374; 96375; 99284; A9270; J2405; J3360; J7120

== ENCOUNTER 2024-11-30 08:48 | Outpatient (CLI) | payer BC, SELFPAY ==
[2024-11-30 18:29] LABS: Hematocrit 38.5 % (37.0-47.0); Hemoglobin 11.8 g/dL (12.0-15.0); Mean Corpuscular HGB Conc 30.6 g/dl (32-36); Mean Corpuscular Hemoglobin 27.4 pg (26-34); Mean Corpuscular Volume 89.3 fl (80-100); Platelet Count Result 365 k/mm3 (150-375); Red Blood Count 4.31 M/mm3 (4.2-5.4); White Blood Count 6.5 K/mm3 (4.5-10.0)
[2024-11-30 18:31] LABS: Alanine Aminotransferase 35 U/L (6-35); Albumin Level 4.2 g/dL (3.5-5.1); Alkaline Phosphatase 46 U/L (38-126); Anion Gap 9 mmol/L (4-12); Aspartate Amino Transferase 63 U/L (14-36); Bilirubin,Total 0.3 mg/dL (0.2-1.3); Blood Urea Nitrogen 14 mg/dL (7-17); Calcium 9.3 mg/dL (8.4-10.2); Carbon Dioxide 27 mmol/L (22-30); Chloride 104 mmol/L (98-107); Cholesterol 161 mg/dL (0-200); Estimated Glomerular Filt Rate > 60; Glucose 93 mg/dL (65-110); HDL Direct 41 mg/dL; Potassium 4.2 mmol/L (3.4-5.0); Sodium 140 mmol/L (137-145); Total Protein 7.7 g/dL (6.3-8.2); Triglycerides 124 mg/dL (<150)
[2024-11-30 18:37] LABS: Non Pathogenic Casts 0-2
[2024-11-30 18:43] LABS: Add Urine Microscopic? YES; Appearance Urine Cloudy (Clear); Glucose Urine UA Negative (Negative); Leukocyte Esterase Ur 1+ LEU/UL (Negative); Nitrate Urine Negative (Negative); Specific Grav Ur 1.019 (1.001-1.035)
[2024-11-30 18:49] LABS: Need Manual Microscopic Reviewed
[2024-11-30 19:09] LABS: Thyroid Stimulating Hormone 5.160 uIU/mL (0.465-4.680)
[2024-11-30 19:37] LABS: Iron 67 ug/dL (37-170)
[2024-11-30 19:47] LABS: Percent Iron Saturation 18 % (20-50)
[2024-11-30 20:13] LABS: Ferritin 9.79 ng/mL (6.24-137)
== END 2024-11-30 08:49 | disposition home or self-care (01) ==
LOC: ANHBWCLAB 08:49
PROVIDERS: PCP Nurse Practitioner Adult Health; Visit Provider Nurse Practitioner Adult Health
DX: E03.9 Hypothyroidism, unspecified (principal); E78.1 Pure hyperglyceridemia; R53.83 Other fatigue; Z87.440 Personal history of urinary (tract) infections
CPT/HCPCS: 36415; 80053; 80061; 81001; 82728; 83540; 83550; 84443; 85027; 87086

== ENCOUNTER 2025-01-25 15:37 | Outpatient (CLI) | payer BC, SELFPAY ==
--- OUTSIDE RECORDS SUMMARY | 2025-01-25 16:55 | XMS_ITS | Clinical Summary ---
Author Organization [facility] Address [address] [place] [address] Care Team Providers Care Motion Picture Critic Name Role Phone Shazia Rothman Primary Care Provider [phone] Allergies Active Allergy Reactions Criticality Noted Date [...] Description 11/17/2024 6:30 PM CDT Office Visit [facility]ient Care at [address] [address] Nicolette Landa PA Dizziness (Primary [...] oz pur e alcohol) Social Connection and Isolation Panel Answer Date Recorded In a typical week, how many times do you talk on the phone with family, friends, or neighbors? More than three times a week 05/03/2023 How often do you get togethe r with friends or relatives? More than three times a week 05/03/2023 How often do you attend chur ch or methodist services? Never 05/03/2023 Do you belong to any clubs o r organizations such as amish groups, unions, fraternal or athletic groups, or [...] staff should administer the PHQ-9) 0 05/03/2023 [facility] of Occupat [facility] - Occupational Stress Questionnaire Answer Date Recorded [...] on file Legal Sex Female 3:03 PM EVENT DECORATOR AND DESIGNER Gender Identity Not on file Sexual Orientation [...] tion Spinal N Livin g 8 9 Rik Pritchett MD Complications:Other (Comment ) Delivery Location:This [facility] ([facility] L AND D PROCEDURE) [...] 160 cm (5' 3) 05/03/2023 7:52 PM EVENT DECORATOR AND DESIGNER Body Mass Index 49.42 05/03/2023 7:52 PM EVENT DECORATOR AND DESIGNER Plan of Treatment Health Maintenance Due Date [...] to complete this topic Insurance CHOICE PLUS CHOICE [facility] CHOICE PLUS Advance Directives For more information, please contact: [phone] * Full Code (Latest Code Status on [...] n case of cardiopulmonary arrest Care Teams Motion Picture Critic Relationship Specialty Start Date End Date Shazia Rothman PA [address] [place] [address] PCP - General Physician Tool Keeper 12/05/22
--- OUTSIDE RECORDS SUMMARY | 2025-01-25 16:56 | XMS_ITS | Clinical Summary ---
Author Organization [facility] Address [address] [place] [address] Care Team Providers Care Automotive Starter Repairer Name Role Phone Unavailable Primary Care Provider Unavailabl e Encounters Date Type Department Care Team Description 01/04/2025 External Device Data ST[facility] ABSTRACTION Provider, Abstract 12/22/2024 External Device Data STL ABSTRACTION Provider, Abstract 12/01/2024 External Device Data STL ABSTRACTION Provider, Abstract 12/01/2024 External Device Data ST[facility] ABSTRACTION Provider, Abstract 11/16/2024 External Device Data STL ABSTRACTION Provider, Abstract 11/03/2024 External Device Data STL ABSTRACTION Provider, Abstract from Last 3 Months Social History Tobacco [...] (1 of 3 - 19+ 3-dose series) 04/18 CERVICAL CANCER SCREENING 2017 HPV/Cotest (21-29) 2017 PAP SMEAR 2017 HPV VACCINES (1 - 3-dose SCDM series) 2023 INFLUENZA VACCINE (#1) 2024 Insurance [facility] BLUE ACCESS CHOICE
[2025-01-25 19:21] LABS: Thyroid Stimulating Hormone 2.290 uIU/mL (0.465-4.680)
== END 2025-01-25 15:38 | disposition home or self-care (01) ==
LOC: ANHBWCLAB 15:38
PROVIDERS: PCP Nurse Practitioner Adult Health; Visit Provider Nurse Practitioner Adult Health
DX: E03.9 Hypothyroidism, unspecified (principal)
CPT/HCPCS: 36415; 84443

== ENCOUNTER 2025-01-31 09:07 | Outpatient (CLI) | payer BC, SELFPAY ==
--- NOTE | ~2025-01-31 | US_ITS ---
Clinical history:Pain. Burning. EXAM:Ultrasound wrist bilateral complete TECHNIQUE:Multiple static grayscale images of the areas of concern in both breasts were obtained. Comparisons:None available FINDINGS: No cystic or solid mass identified in either breast. IMPRESSION: 1. No sonographic evidence for malignancy. A negative ultrasound should not preclude additional workup and/or biopsy of a clinically suspicious amounted. BI-RADS1: Negative Reviewed, dictated and finalized at location Q.
--- OUTSIDE RECORDS SUMMARY | 2025-01-31 09:54 | XMS_ITS | Clinical Summary ---
Author Organization [facility] Address [address] [place] [address] Care Team Providers Care Clinical Business Analyst Name Role Phone Shazia Rothman Primary Care Provider [phone] Allergies Active Allergy Reactions Criticality Noted Date [...] Description 11/17/2024 6:30 PM CDT Office Visit [facility] Medical [facility] Convenient Care at [address] [address] Nicolette Landa PA Dizziness (Primary [...] often do you attend chur ch or buddhist services? Never 05/03/2023 Do you belong to any clubs o r organizations such as catholic groups, unions, fraternal or athletic groups, or [...] staff should administer the PHQ-9) 0 05/03/2023 [facility] - Occupational Stress Questionnaire Answer Date Recorded [...] place to sleep or slept in a mcc (including now)? No 05/03/2023 Personal Safety Answer Date Recorded Have you ever been in or are you currently in a harmful physical or emotional relationship or is someone making you feel afraid or unsafe? Denies 05/03/2023 Comments Unknown Sex and Gender Information Value Date Recorded Sex Assigned at Not on file Legal Sex Female 3:03 PM AVAYA ENGINEER Gender Identity Not on file Sexual Orientation [...] Pritchett MD Complications:Other (Comment ) Delivery Location:This [facility] ([facility] L AND D PROCEDURE) Last [...] 160 cm (5' 3) 05/03/2023 7:52 PM AVAYA ENGINEER Body Mass Index 49.42 05/03/2023 7:52 PM AVAYA ENGINEER Plan of Treatment Health Maintenance Due Date Last Done Comments Cervical Cancer Screening 1996 Hepatitis C Screening 1996 Regular Well Visit/Exam 18-64 2014 Depression Screening 05/01/2024 05/01/2023, 05/01/2023, 04/29/2023, Additional history exists Covid-19 Vaccine ( season) 2025 09/25/2020, 08/18/2020 Influenza Vaccine (#1) 2025 05/16/2015 DTaP/Tdap/Td Vaccine (7 - Td or Tdap) 02/17/2033 02/17/2023, 12/02/2001, 12/02/2001, Additional history exists Hepatitis B Screening Completed 03/27/1997 , 03/25/1997, 1996, Additional history exists Varicella Vaccines Completed 01/07/2007, 04/20/1999 HPV Vaccines Completed 09/09/2008, 12/23/2007 Pneumococcal vaccine <65 Aged Out No longer eligible based on patient's age to complete this topic Insurance CHOICE PLUS [facility] HMO/PPO Address: [address] [address] [place] [address] CHOICE [facility] CHOICE PLUS [facility] H[facility]/PPO Address: [address] [address] [place] [address] Advance Directives For more information, please contact: [phone] * Full Code (Latest Code Status on [...] n case of cardiopulmonary arrest Care Teams Clinical Business Analyst Relationship Specialty Start Date End Date Shazia Rothmna PA [address] [place] [address] PCP - General Physician Sap Bpc Architect 12/05/22
--- OUTSIDE RECORDS SUMMARY | 2025-01-31 09:54 | XMS_ITS | Clinical Summary ---
Author Organization [facility] Address [address] [place] [address] Care Team Providers Care Hotel Superintendent Name Role Phone Unavailable Primary Care Provider [...] series) 2023 INFLUENZA VACCINE (#1) 2024 Insurance [facility] BLUE ACCESS CHOICE
== END 2025-01-31 09:08 | disposition home or self-care (01) ==
LOC: CHSIMG 09:08
PROVIDERS: PCP Nurse Practitioner Adult Health; Visit Provider Nurse Practitioner Adult Health
DX: N64.4 Mastodynia (principal)
CPT/HCPCS: 76641

== ENCOUNTER 2025-02-09 10:00 | Outpatient (CLI) | payer BC, SELFPAY ==
--- NOTE | 2025-02-09 10:20 | NEURO_ITS ---
Impression: # Non-diabetic complains of numbness of right side of body. # Normal Nerve Conduction Study and Needle/ EMG exam. # No Carpal Tunnel Syndrome or Ulnar Neuropathy. Nerve Conduction Studies ?Stim Site NR Peak (ms) P-T Amp (?V) Site1 Site2 Delta-P (ms) Dist (cm) Jasson (m/s) Right Median Anti Sensory (2-3nd Digit) Wrist ? 2.8 57.6 Wrist 2-3nd Digit 2.8 14.0 50 Wrist ? 2.8 54.5 Wrist 2-3nd Digit 2.8 14.0 50 Right Radial Anti Sensory (Base 1st Digit) Wrist ? 1.9 20.3 Wrist Base 1st Digit 1.9 0.0 Right Ulnar Anti Sensory (5th Digit) Wrist ? 2.1 56.6 Wrist 5th Digit 2.1 14.0 67 ?Stim Site NR Onset (ms) O-P Amp (mV) Site1 Site2 Delta-0 (ms) Dist (cm) Jasson (m/s) Right Median Motor (Abd Poll Brev) Wrist ? 4.0 2.3 Elbow Wrist 4.4 31.0 70 Elbow ? 8.4 2.3 Right Ulnar Motor (Abd Dig Minimi) Wrist ? 2.9 5.8 A Elbow Wrist 4.9 29.0 59 A Elbow ? 7.8 4.3 B Elbow Wrist 3.2 19.0 59 B Elbow ? 6.1 3.4 F Wave Studies ?NR F-Lat (ms) L-R F-Lat (ms) Right Median (Mrkrs) (Abd Poll Brev) ? 23.33 Right Ulnar (Mrkrs) (Abd Dig Min) ? 24.22 Electromyography ?Side Muscle Nerve Root Ins Act Fibs Amp Dur Recrt Comment Right 1stDorInt Ulnar C8-T1 Nml Nml Nml Nml Nml Right Ext Indicis Radial (Post Int) C7-8 Nml Nml Nml Nml Nml Right Ext Digitorum Radial (Post Int) C7-8 Nml Nml Nml Nml Nml Right BrachioRad Radial C5-6 Nml Nml Nml Nml Nml Right PronatorTeres Median C6-7 Nml Nml Nml Nml Nml Right Abd Poll Brev Median C8-T1 Nml Nml Nml Nml Nml Right ABD Dig Min Ulnar C8-T1 Nml Nml Nml Nml Nml Right FlexPolLong Median (Ant Int) C7-8 Nml Nml Nml Nml Nml Right Abd Poll Long Radial (Post Int) C7-8 Nml Nml Nml Nml Nml
--- OUTSIDE RECORDS SUMMARY | 2025-02-09 10:54 | XMS_ITS | Clinical Summary ---
Author Organization [facility] Address [address] [place] [address] Care Team Providers Care Recovery Auditor Name Role Phone Unavailable Primary Care Provider [...] series) 2023 INFLUENZA VACCINE (#1) 2024 Insurance [facility] [employer] ACCESS CHOICE
--- OUTSIDE RECORDS SUMMARY | 2025-02-09 10:54 | XMS_ITS | Clinical Summary ---
Author Organization [facility] Address [address] [place] [address] Care Team Providers Care Field Research Assistant Name Role Phone Shazia Rothman Primary Care Provider [phone] Allergies Active Allergy Reactions Criticality Noted Date [...] Description 11/17/2024 6:30 PM CDT Office Visit [facility] Medical Group Convenient Care at [address] [address] Nicolette Landa PA Dizziness (Primary [...] often do you attend chur ch or nondenominational services? 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 Gender Identity Not on file Sexual Orientation [...] Pritchett MD Complications:Other (Comment ) Delivery Location:This [facility] ([facility] L AND D PROCEDURE) Last [...] 160 cm (5' 3) 05/03/2023 7:52 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
== END 2025-02-09 10:01 | disposition home or self-care (01) ==
PROVIDERS: PCP Nurse Practitioner Adult Health; Visit Provider Nurse Practitioner Adult Health
DX: R20.2 Paresthesia of skin (principal)
CPT/HCPCS: 95886; 95909

== ENCOUNTER 2025-02-16 13:35 | Outpatient (CLI) | payer BC, SELFPAY ==
--- NOTE | ~2025-02-16 | MR_ITS ---
EXAMINATION: MR brain/brain stem wo con DATE: 02/16/2025 14:03 INDICATION: Paresthesia of skin. Right-sided numbness. TECHNIQUE: Magnetic resonance imaging (MRI) of the brain and brainstem was performed without intravenous contrast. COMPARISON: Head CT 06/24/2024 FINDINGS: There are greater than 10 scattered foci of increased T2-weighted signal intensity in the cerebral white matter including periventricular and juxtacortical lesions. There are foci of increased T2-weighted signal intensity in the posterior medulla and left middle cerebellar peduncle. There is no acute ischemic infarct or intracranial hemorrhage. The ventricles are normal in size. The orbits are normal. There is mild mucosal thickening in the paranasal sinuses. The mastoid air cells are normal. IMPRESSION: 1. Scattered brain lesions, consistent with multiple sclerosis. Reviewed, dictated and finalized at location E.
== END 2025-02-16 13:36 | disposition home or self-care (01) ==
LOC: MICIMG 13:36
PROVIDERS: PCP Nurse Practitioner Adult Health; Visit Provider Nurse Practitioner Adult Health
DX: R20.2 Paresthesia of skin (principal)
CPT/HCPCS: 70551